=== PATIENT | female | born 1965 | race African-American/Black ===

== ENCOUNTER 2017-06-13 05:47 | Emergency (ER) | payer SELFPAY ==
[2017-06-13] MEDS ORDERED: METOCLOPRAMIDE 10 MG/2mL INJ ONE (06:26)
[2017-06-13] MEDS ORDERED: KETOROLAC 30 MG/ML INJ ONE (06:26)
[2017-06-13] MEDS ORDERED: DIPHENHYDRAMINE 50 MG/ML VIAL ONE (06:26)
--- NOTE | 2017-06-13 07:49 | EDPHYS ---
Physician Documentation [facility] Name: Jesenia Rodriguez Age: 51 yrs Sex: Female : 1965 Arrival Date: 06/13/2017 Time: 05:48 Bed 17 Private MD: ED Physician Jan Boss HPI: 06/13 07:00 This 51 yrs old Black Female presents to ER via Ambulatory with complaints of Headache pm1 - Migraine, Nausea/Vomiting. 07:00 The patient complains of pain to the top of head. The patient describes the headache as pm1 aching, constant. Onset: The symptoms/episode began/occurred 3 day(s) ago. Associated signs and symptoms: Pertinent positives: nausea, Photophobia vomiting, Pertinent negatives: fever, neck stiffness. Severity of symptoms: in the emergency department the pain is actually worse. Headache History: The patient has had previous headaches and this one is similar to previous episodes. The symptoms are alleviated by nothing. the symptoms are aggravated by lights, noise. The patient has experienced similar episodes in the past, multiple times. The patient has not recently seen a physician. 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 - Social history:: Smoking status: Patient/guardian denies using tobacco. ROS: 07:00 Constitutional: Negative for fever, chills, and weight loss, ENT: Negative for injury, pm1 pain, and discharge. 07:00 Neck: Negative for injury, pain, and swelling, Cardiovascular: Negative for chest pain, palpitations, and edema, Respiratory: Negative for shortness of breath, cough, wheezing, and pleuritic chest pain, Back: Negative for injury and pain, : Negative for injury, bleeding, discharge, and swelling, MS/Extremity: Negative for injury and deformity, Skin: Negative for injury, rash, and discoloration. 07:00 Eyes: Positive for photophobia, Negative for vision loss, visual disturbance. 07:00 Abdomen/GI: Positive for nausea and vomiting, Negative for abdominal pain, diarrhea. 07:00 Neuro: Positive for headache, Negative for dizziness. Exam: 07:00 Constitutional: This is a well developed, well nourished patient who is awake, alert, pm1 and in no acute distress. Head/Face: Normocephalic, atraumatic. Eyes: Pupils equal round and reactive to light, extra-ocular motions intact. Lids and lashes normal. Conjunctiva and sclera are non-icteric and not injected. Cornea within normal limits. Periorbital areas with no swelling, redness, or edema. ENT: Nares patent. No nasal discharge, no septal abnormalities noted. Tympanic membranes are normal and external auditory canals are clear. Oropharynx with no redness, swelling, or masses, exudates, or evidence of obstruction, uvula midline. Mucous membranes moist. Neck: Trachea midline, no thyromegaly or masses palpated, and no cervical lymphadenopathy. Supple, full range of motion without nuchal rigidity, or vertebral point tenderness. No Meningismus. Chest/axilla: Normal chest wall appearance and motion. Nontender with no deformity. No lesions are appreciated. Cardiovascular: Regular rate and rhythm with a normal S1 and S2. No gallops, murmurs, or rubs. Normal PMI, no JVD. No pulse deficits. Respiratory: Lungs have equal breath sounds bilaterally, clear to auscultation and percussion. No rales, rhonchi or wheezes noted. No increased work of breathing, no retractions or nasal flaring. Abdomen/GI: Soft, non-tender, with normal bowel sounds. No distension or tympany. No guarding or rebound. No evidence of tenderness throughout. Back: No spinal tenderness. No costovertebral tenderness. Full range of motion. Skin: Warm, dry with normal turgor. Normal color with no rashes, no lesions, and no evidence of cellulitis. MS/ Extremity: Pulses equal, no cyanosis. Neurovascular intact. Full, normal range of motion. 07:00 Neuro: Orientation: is normal, Cranial nerves: CN II- XII are normal as tested, Cerebellar function: normal finger to nose testing, Motor: is normal, moves all fours. Vital Signs: 06:03 BP 143 / 88; Pulse 72; Resp 22; Temp 97.9; Pulse Ox 97% on R/A; Weight 76.2 kg; Height aa1 5 ft. 7 in. (170.18 cm); Pain 10/10; 07:32 BP 126 / 90; Pulse 63; Resp 16 S; Pulse Ox 99% on R/A; aa5 06:03 Body Mass Index 26.31 (76.20 kg, 170.18 cm) aa1 MDM: 06:10 Patient medically screened. pm1 07:48 Data reviewed: vital signs. Data interpreted: Pulse oximetry: on room air is 97 %. pm1 Interpretation: normal. Counseling: I had a detailed discussion with the patient and/or guardian regarding: the historical points, exam findings, and any diagnostic results supporting the discharge/admit diagnosis, the need for outpatient follow up, to return to the emergency department if symptoms worsen or persist or if there are any questions or concerns that arise at home. 06/13 06:19 Order name: IV Saline Lock; Complete Time: 06:31 pm1 Administered Medications: 06:31 Drug: Reglan 10 mg Route: IVP; Site: right antecubital; tl2 07:30 Follow up: Response: No adverse reaction aa5 06:31 Drug: TORadol 30 mg Route: IVP; Site: right antecubital; tl2 07:30 Follow up: Response: No adverse reaction aa5 06:31 Drug: Benadryl 12.5 mg Route: IVP; Site: right antecubital; tl2 07:30 Follow up: Response: No adverse reaction aa5 Disposition: 19:25 Co-signature as Attending Physician, Jan Boss MD. Disposition: 06/13/17 07:48 Discharged to Home. Impression: Migraine. - Condition is Stable. - Discharge Instructions: Migraine Headache. - Medication Reconciliation Form, Thank You Letter, Prescription Opioid Use form. - Follow up: Emergency Department; When: As needed; Reason: Worsening of condition. Follow up: Private Physician; When: 2 - 3 days; Reason: Recheck today's complaints, Continuance of care, Re-evaluation by your physician. - Problem is new. - Symptoms have improved. Signatures: Kayla Schuler RN RN aa1 Marie Saleh RN RN aa5 Favio Schuster NP CORK INSULATOR HELPER pm1 Leni Escoto RN RN tl2 Jan Boss MD MD gs Corrections: (The following items were deleted from the chart) 08:18 07:48 06/13/2017 07:48 Discharged to Home. Impression: Migraine. Condition is Stable. aa5 Forms are Medication Reconciliation Form, Thank You Letter, Antibiotic Education, Prescription Opioid Use. Follow up: Emergency Department; When: As needed; Reason: Worsening of condition. Follow up: Private Physician; When: 2 - 3 days; Reason: Recheck today's complaints, Continuance of care, Re-evaluation by your physician. Problem is new. Symptoms have improved. pm1
--- NOTE | 2017-06-13 07:49 | ER ---
Nurse's Notes [facility] Name: Jesenia Rodriguez Age: 51 yrs Sex: Female : 1965 Arrival Date: 06/13/2017 Time: 05:48 Bed 17 Private MD: Diagnosis: Migraine Presentation: 06/13 05:58 Presenting complaint: Patient states: migraine x 3 days. Reports hx of migraines and aa1 takes Motrin 800 mg and Butab but is not helping. Transition of care: patient was not received from another setting of care. Onset of symptoms was June 10, 2017. Initial Sepsis Screen: Does the patient meet any 2 criteria? No. Patient's initial sepsis screen is negative. Does the patient have a suspected source of infection? No. Patient's initial sepsis screen is negative. Care prior to arrival: None. 05:58 Method Of Arrival: Ambulatory aa1 05:58 Acuity: BRIAN 3 aa1 Triage Assessment: 06:35 Headache History: The patient has had previous headaches and this one is similar to jd3 previous episodes. 06:35 Pain: Also complains of nausea. 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 - Social history:: Smoking status: Patient/guardian denies using tobacco. Screenin:03 Abuse screen: Denies threats or abuse. Nutritional screening: No deficits noted. jd3 Tuberculosis screening: No symptoms or risk factors identified. Fall Risk None identified. Assessment: 06:01 General: Appears uncomfortable, Behavior is cooperative, crying. Pain: Complains of jd3 pain in head Pain currently is 10 out of 10 on a pain scale. Quality of pain is described as sharp, Pain began 2-3 days ago. Is continuous, Aggravated by light Noted to be crying. Neuro: Level of Consciousness is awake, alert, obeys commands, Oriented to person, place, time, situation. Cardiovascular: Heart tones S1 S2 present Capillary refill < 3 seconds Patient's skin is warm and dry. Respiratory: Airway is patent Respiratory effort is even, unlabored, Respiratory pattern is regular, symmetrical, Breath sounds are clear bilaterally. GI: Abdomen is round Bowel sounds present X 4 quads. Abd is soft and non tender X 4 quads. Reports nausea. : No signs and/or symptoms were reported regarding the genitourinary system. EENT: No signs and/or symptoms were reported regarding the EENT system. Derm: Skin is intact, Skin is dry, Skin is normal, Skin temperature is warm. Musculoskeletal: Circulation, motion, and sensation intact. Range of motion: intact in all extremities. 07:30 Reassessment: Patient states feeling better. Pt resting in bed with eyes closed, aa5 respirations even and unlabored. . 08:17 Reassessment: Patient states feeling better. Neuro: Level of Consciousness is awake, aa5 alert, obeys commands, Oriented to person, place, time, situation. Respiratory: Airway is patent Respiratory effort is even, unlabored, Respiratory pattern is regular, symmetrical. Derm: Skin is dry, Skin is normal, Skin temperature is warm. Vital Signs: 06:03 BP 143 / 88; Pulse 72; Resp 22; Temp 97.9; Pulse Ox 97% on R/A; Weight 76.2 kg; Height aa1 5 ft. 7 in. (170.18 cm); Pain 10/10; 07:32 BP 126 / 90; Pulse 63; Resp 16 S; Pulse Ox 99% on R/A; aa5 06:03 Body Mass Index 26.31 (76.20 kg, 170.18 cm) aa1 ED Course: 05:48 Patient arrived in ED. am2 06:01 Nadir Engel RN is Primary Nurse. jd3 06:01 Favio Schuster NP is PHCP. pm1 06:01 Jan Boss MD is Attending Physician. pm1 06:02 Triage completed. aa1 06:03 Patient has correct armband on for positive identification. Bed in low position. Call jd3 light in reach. Side rails up X2. Adult w/ patient. 06:03 Arm band placed on right wrist. Patient placed in an exam room, on a stretcher. aa1 06:32 Inserted saline lock: 20 gauge in right antecubital area, using aseptic technique. tl2 placed by LUIGI Schmitz. 06:34 Door closed. Noise minimized. Lights dimmed. Warm blanket given. jd3 07:53 No provider procedures requiring assistance completed. aa5 08:17 IV discontinued, intact, bleeding controlled, No redness/swelling at site. Pressure aa5 dressing applied. Administered Medications: 06:31 Drug: Reglan 10 mg Route: IVP; Site: right antecubital; tl2 07:30 Follow up: Response: No adverse reaction aa5 06:31 Drug: TORadol 30 mg Route: IVP; Site: right antecubital; tl2 07:30 Follow up: Response: No adverse reaction aa5 06:31 Drug: Benadryl 12.5 mg Route: IVP; Site: right antecubital; tl2 07:30 Follow up: Response: No adverse reaction aa5 Outcome: 07:48 Discharge ordered by MD. pm1 08:17 Discharged to home ambulatory, with family. aa5 08:17 Condition: improved 08:17 Discharge instructions given to patient, family, Instructed on discharge instructions, follow up and referral plans. Demonstrated understanding of instructions, follow-up care. 08:18 Patient left the ED. aa5 Signatures: Kayla Schuler RN RN aa1 Marie Saleh RN RN aa5 Favio Schuster, RAINE CARDIOVASCULAR SURGICAL TECH pm1 Leni Escoto RN RN tl2 Catherine Sena amNadir Mccarthy RN RN jd3
== END 2017-06-13 08:18 | disposition home or self-care (01) ==
LOC: ER 05:47
DX: G43.909 Migraine, unspecified, not intractable, without status migrainosus (principal)
CPT/HCPCS: 96374; 96375; 99283; J2765

== ENCOUNTER 2018-01-10 20:35 | Emergency (ER) | payer SELFPAY ==
[2018-01-10] MEDS ORDERED: DEXAMETHASONE 10 MG/ML VIAL ONE (21:56)
[2018-01-10] MEDS ORDERED: DIPHENHYDRAMINE 50 MG/ML VIAL ONE (21:57)
[2018-01-10] MEDS ORDERED: METOCLOPRAMIDE 10 MG/2mL INJ ONE (21:57)
[2018-01-10] MEDS ORDERED: KETOROLAC 30 MG/ML INJ ONE (21:57)
[2018-01-10] MEDS ORDERED: NA CHLORIDE 0.9% 1,000 ML ONE (21:57)
--- NOTE | 2018-01-10 23:00 | ER ---
Nurse's Notes [facility] Name: Jesenia Rodriguez Age: 52 yrs Sex: Female : 1965 Arrival Date: 01/10/2018 Time: 20:43 Bed 17 Private MD: Diagnosis: Migraine Presentation: 01/10 21:01 Presenting complaint: Patient states: migraine started this morning. pt c/o N/V. pt ak1 missed her MRI on 12/22 in [place] and is waiting on insurance from her new job to reschedule next MRI. Transition of care: patient was not received from another setting of care. Onset of symptoms was January 10, 2018. Risk Assessment: Do you want to hurt yourself or someone else? Patient reports no desire to harm self or others. Initial Sepsis Screen: Does the patient meet any 2 criteria? No. Patient's initial sepsis screen is negative. Does the patient have a suspected source of infection? No. Patient's initial sepsis screen is negative. Care prior to arrival: None. 21:01 Method Of Arrival: Ambulatory ak1 21:01 Acuity: BRIAN 3 ak1 Triage Assessment: 21:03 Headache History: The patient has had previous headaches. General: Appears ak1 uncomfortable, Behavior is calm, cooperative. Neuro: Level of Consciousness is awake, alert, obeys commands, Oriented to person, place, time, situation, Doweler are equal bilaterally Moves all extremities. Gait is steady, Speech is normal, Facial symmetry appears normal. 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 - Social history:: Smoking status: Patient/guardian denies using tobacco. - Ebola Screening: : No symptoms or risks identified at this time. - Family history:: not pertinent. - Hospitalizations: : No recent hospitalization is reported. Screenin:45 Abuse screen: Denies threats or abuse. Denies injuries from another. Nutritional lp1 screening: No deficits noted. Tuberculosis screening: No symptoms or risk factors identified. Fall Risk None identified. Assessment: 21:43 General: Appears uncomfortable, Behavior is crying. Pain: Complains of pain in head lp1 Pain currently is 10 out of 10 on a pain scale. Pain began gradually, Also complains of photophobia, inability to concentrate. Neuro: Level of Consciousness is awake, alert, obeys commands, Oriented to person, place, time, situation, Moves all extremities. Full function Gait is steady, Reports headache occipital area, photophobia. Cardiovascular: Patient's skin is warm and dry. Respiratory: Respiratory effort is even, unlabored. GI: No signs and/or symptoms were reported involving the gastrointestinal system. : No signs and/or symptoms were reported regarding the genitourinary system. EENT: No signs and/or symptoms were reported regarding the EENT system. Derm: Skin is intact, Skin is dry, Skin is normal. Musculoskeletal: Circulation, motion, and sensation intact. 23:07 Reassessment: Patient and/or family updated on plan of care and expected duration. Pain lp1 level reassessed. Patient is alert, oriented x 3, equal unlabored respirations, skin warm/dry/pink. Patient able to tolerate light Patient states feeling better. Patient states symptoms have improved. General: Behavior is calm. Vital Signs: 21:03 BP 129 / 98; Pulse 79; Resp 18; Temp 98.7; Pulse Ox 99% on R/A; Weight 67.13 kg (R); ak1 Height 5 ft. 7 in. (170.18 cm) (R); Pain 9/10; 22:02 BP 136 / 83; Pulse 82; Resp 18; Pulse Ox 100% on R/A; lp1 23:07 BP 138 / 87; Pulse 86; Resp 18; Pulse Ox 100% on R/A; Pain 2/10; lp1 21:03 Body Mass Index 23.18 (67.13 kg, 170.18 cm) ak1 Gm Coma Score: 22:56 Eye Response: spontaneous(4). Verbal Response: oriented(5). Motor Response: obeys rn commands(6). Total: 15. ED Course: 20:43 Patient arrived in ED. es 21:02 Triage completed. ak1 21:03 Arm band placed on Patient placed in waiting room, Patient notified of wait time. ak1 21:32 Coretta Britton, RN is Primary Nurse. lp1 21:38 Malick Lei MD is Attending Physician. rn 21:40 Inserted saline lock: 20 gauge in right antecubital area, using aseptic technique. lp1 22:02 Patient has correct armband on for positive identification. Pulse ox on. NIBP on. lp1 23:09 No provider procedures requiring assistance completed. lp1 23:16 IV discontinued, No redness/swelling at site. Pressure dressing applied. lp1 Administered Medications: 22:01 Drug: Reglan 10 mg Route: IVP; Site: right antecubital; lp1 23:08 Follow up: Response: Marked relief of symptoms lp1 22:01 Drug: Benadryl 50 mg Route: IVP; Site: right antecubital; lp1 23:08 Follow up: Response: Marked relief of symptoms lp1 22:01 Drug: NS 0.9% 1000 ml Route: IV; Rate: 1000 ml; Site: right antecubital; lp1 23:08 Follow up: IV Status: Completed infusion; IV Intake: 1000ml lp1 22:01 Drug: Decadron - Dexamethasone 10 mg Route: IVP; Site: right antecubital; lp1 23:08 Follow up: Response: Marked relief of symptoms lp1 22:02 Drug: TORadol 30 mg Route: IVP; Site: right antecubital; lp1 23:08 Follow up: Response: Marked relief of symptoms lp1 Intake: 23:08 IV: 1000ml; Total: 1000ml. lp1 Outcome: 23:00 Discharge ordered by . rn 23:16 Discharged to home ambulatory, with family. lp1 23:16 Condition: good 23:16 Discharge instructions given to patient, Instructed on discharge instructions, follow up and referral plans. Demonstrated understanding of instructions, follow-up care. 23:17 Patient left the ED. lp1 Signatures: Milagros Jang Roman, MD MD rn Pena, Laura, RN RN lp1 Cami Lau RN RN ak1 Corrections: (The following items were deleted from the chart) 22:04 21:43 Pain: Complains of pain in head Pain currently is 10 out of 10 on a pain scale. lp1 lp1 22:04 21:43 Neuro: Level of Consciousness is awake, alert, obeys commands, Oriented to lp1 person, place, time, situation, Moves all extremities. Full function Gait is steady, Reports headache occipital area, photophobia lp1 22: 21:43 Pain: Complains of pain in head Pain currently is 10 out of 10 on a pain scale. lp1 Also complains of photophobia, inability to concentrate, lp1
--- NOTE | 2018-01-10 23:01 | EDPHYS ---
Physician Documentation [facility] Name: Jesenia Rodriguez Age: 52 yrs Sex: Female : 1965 Arrival Date: 01/10/2018 Time: 20:43 Bed 17 Private MD: ED Physician Malick eLi HPI: 01/10 22:56 This 52 yrs old Black Female presents to ER via Ambulatory with complaints of Headache, rn Nausea. 22:56 The patient complains of pain to the top of head and forehead. The patient describes rn the headache as aching. Onset: The symptoms/episode began/occurred yesterday. Severity of symptoms: At its worst the pain was moderate, "similar to past headaches". The patient has experienced similar episodes in the past. The patient has not recently seen a physician. Reports headache, has history of migraines, has been worked up for them with imaging and sees a neurologist, reports imitrex not working. No new symptoms. . 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 - Social history:: Smoking status: Patient/guardian denies using tobacco. - Ebola Screening: : No symptoms or risks identified at this time. - Family history:: not pertinent. - Hospitalizations: : No recent hospitalization is reported. ROS: 22:56 Constitutional: Negative for fever, chills, and weight loss, Eyes: Negative for injury, rn pain, redness, and discharge, Neck: Negative for injury, pain, and swelling, Cardiovascular: Negative for chest pain, palpitations, and edema, Respiratory: Negative for shortness of breath, cough, wheezing, and pleuritic chest pain, Abdomen/GI: Negative for abdominal pain, diarrhea, and constipation, MS/Extremity: Negative for injury and deformity, Skin: Negative for injury, rash, and discoloration, Neuro: Negative for weakness, numbness, tingling, and seizure. Exam: 22:56 Constitutional: This is a well developed, well nourished patient who is awake, alert, rn and in no acute distress. Head/Face: Normocephalic, atraumatic. Eyes: Pupils equal round and reactive to light, extra-ocular motions intact. ENT: MMM Neck: Trachea midline. Supple, full range of motion without nuchal rigidity, or vertebral point tenderness. No Meningismus. Skin: Warm, dry with normal turgor. Normal color with no rashes, no lesions, and no evidence of cellulitis. MS/ Extremity: Pulses equal, no cyanosis. Neurovascular intact. Full, normal range of motion. Equal circumference. Neuro: Awake and alert, GCS 15, oriented to person, place, time, and situation. Cranial nerves II-XII grossly intact. Motor strength 5/5 in all extremities. Sensory grossly intact. Cerebellar exam normal. Normal gait. Vital Signs: 21:03 BP 129 / 98; Pulse 79; Resp 18; Temp 98.7; Pulse Ox 99% on R/A; Weight 67.13 kg (R); ak1 Height 5 ft. 7 in. (170.18 cm) (R); Pain 9/10; 22:02 BP 136 / 83; Pulse 82; Resp 18; Pulse Ox 100% on R/A; lp1 23:07 BP 138 / 87; Pulse 86; Resp 18; Pulse Ox 100% on R/A; Pain 2/10; lp1 21:03 Body Mass Index 23.18 (67.13 kg, 170.18 cm) ak1 [place] Coma Score: 22:56 Eye Response: spontaneous(4). Verbal Response: oriented(5). Motor Response: obeys rn commands(6). Total: 15. MDM: 21:38 Patient medically screened. rn 22:56 Differential diagnosis: migraine. Data reviewed: vital signs, nurses notes, and as a rn result, I will discharge patient. Counseling: I had a detailed discussion with the patient and/or guardian regarding: the historical points, exam findings, and any diagnostic results supporting the discharge/admit diagnosis, the need for outpatient follow up, to return to the emergency department if symptoms worsen or persist or if there are any questions or concerns that arise at home. Response to treatment: the patient's symptoms have markedly improved after treatment. Special discussion: I discussed with the patient/guardian in detail that at this point there is no indication for admission to the hospital. It is understood, however, that if the symptoms persist or worsen the patient needs to return immediately for re-evaluation. 01/10 21:43 Order name: IV Start; Complete Time: 21:45 rn Administered Medications: 22:01 Drug: Reglan 10 mg Route: IVP; Site: right antecubital; lp1 23:08 Follow up: Response: Marked relief of symptoms lp1 22:01 Drug: Benadryl 50 mg Route: IVP; Site: right antecubital; lp1 23:08 Follow up: Response: Marked relief of symptoms lp1 22:01 Drug: NS 0.9% 1000 ml Route: IV; Rate: 1000 ml; Site: right antecubital; lp1 23:08 Follow up: IV Status: Completed infusion; IV Intake: 1000ml lp1 22:01 Drug: Decadron - Dexamethasone 10 mg Route: IVP; Site: right antecubital; lp1 23:08 Follow up: Response: Marked relief of symptoms lp1 22:02 Drug: TORadol 30 mg Route: IVP; Site: right antecubital; lp1 23:08 Follow up: Response: Marked relief of symptoms lp1 Disposition: 01/10/18 23:00 Discharged to Home. Impression: Migraine. - Condition is Stable. - Discharge Instructions: Migraine Headache. - Medication Reconciliation Form, Thank You Letter, Antibiotic Education, Prescription Opioid Use form. - Follow up: Private Physician; When: As needed; Reason: Recheck today's complaints, Re-evaluation by your physician. - Problem is new. - Symptoms have improved. Signatures: Malick Lei MD MD rn Pena, Laura RN RN lp1 Cami Lau RN RN ak1 Corrections: (The following items were deleted from the chart) 23:17 23:00 01/10/2018 23:00 Discharged to Home. Impression: Migraine. Condition is Stable. lp1 Forms are Medication Reconciliation Form, Thank You Letter, Antibiotic Education, Prescription Opioid Use. Follow up: Private Physician; When: As needed; Reason: Recheck today's complaints, Re-evaluation by your physician. Problem is new. Symptoms have improved. rn
== END 2018-01-10 23:17 | disposition home or self-care (01) ==
LOC: ER 20:35
DX: G43.909 Migraine, unspecified, not intractable, without status migrainosus (principal)
CPT/HCPCS: 96361; 96374; 96375; 99283; J1100; J2765; J7030

== ENCOUNTER 2018-03-05 20:22 | Emergency (ER) | payer SELFPAY ==
--- NOTE | 2018-03-05 20:29 | ER ---
Nurse's Notes [facility] Name: Jesenia Rodriguez Age: 52 yrs Sex: Female : 1965 Arrival Date: 03/05/2018 Time: 20:23 Bed Waiting Private MD: Diagnosis: Presentation: 03/05 20:27 Note Patient stated that she did not need to be seen as she was needing work release aj filled out for her job in order to return to work. 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 ED Course: 20: Patient arrived in ED. am2 20:28 Freddy Owusu MD is Attending Physician. alex Administered Medications: No medications were administered Outcome: 20:28 Eloped from waiting room, before seeing physician alex 20:28 Patient left the ED. alex Signatures: Catherine Moise, RN RN Catherine Richardson am2
== END 2018-03-05 20:28 | disposition left against medical advice (07) ==
LOC: ER 20:22
DX: Z53.21 Procedure and treatment not carried out due to patient leaving prior to being seen by health care provider (principal)

== ENCOUNTER 2019-02-22 18:20 | Emergency (ER) | payer SELFPAY ==
--- OUTSIDE RECORDS SUMMARY | 2019-02-22 18:21 | XMS REPORT ---
:1965 Author Organization [facility] Address [address] [place] [address] Care Team Providers Name Role Phone Unavailable Unavailable Unavailable Problems This patient has no known problems. Allergies, Adverse Reactions, Alerts This patient has no known allergies or adverse reactions. Medications This patient has no known medications.
--- NOTE | 2019-02-22 19:19 | ER ---
Nurse's Notes [facility] Name: Jesenia Rodriguez Age: 53 yrs Sex: Female : 1965 Arrival Date: 02/22/2019 Time: 18:23 Bed 11 Private MD: Diagnosis: Acute pharyngitis Presentation: 02/22 18:35 Presenting complaint: Patient states: i have sore throat, cough and congestion since mg2 since Friday. denies fever. Transition of care: patient was not received from another setting of care. Onset of symptoms was February 2019. Risk Assessment: Do you want to hurt yourself or someone else? Patient reports no desire to harm self or others. Initial Sepsis Screen: Does the patient meet any 2 criteria? No. Patient's initial sepsis screen is negative. Does the patient have a suspected source of infection? No. Patient's initial sepsis screen is negative. Care prior to arrival: None. 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 - Social history:: Smoking status: Patient/guardian denies using tobacco, Patient/guardian denies using alcohol, street drugs, IV drugs, Patient/guardian denies using The patient lives with family, with spouse. - Ebola Screening: : No symptoms or risks identified at this time. - Family history:: not pertinent. Screenin:53 Abuse screen: Denies threats or abuse. Denies injuries from another. Nutritional iw screening: No deficits noted. Tuberculosis screening: No symptoms or risk factors identified. Fall Risk None identified. Assessment: 18:53 General: Appears in no apparent distress. Behavior is calm, cooperative. General: iw Reports feeling ill for 2-3 days, Denies fever. Pain: Complains of pain in throat. Neuro: Level of Consciousness is awake, alert, obeys commands, Oriented to person, place, time, situation, Moves all extremities. Full function. Cardiovascular: Patient's skin is warm and dry. Respiratory: Airway is patent Respiratory effort is even, unlabored, Breath sounds are clear bilaterally. EENT: Throat is reddened has enlarged tonsils bilaterally with gag reflex present. Derm: Skin is intact, is healthy with good turgor. Musculoskeletal: Range of motion: intact in all extremities. 19:33 Reassessment: Patient is alert, oriented x 3, equal unlabored respirations, skin bb warm/dry/pink. pt verbalized understanding of and agrees to plan of care discharge instructions given pt ambulated with steady gait to exit. Vital Signs: 18:36 Pulse 78; Resp 17; Temp 98.2; Pulse Ox 100% on R/A; Weight 72.57 kg; Height 5 ft. 7 in. mg2 (170.18 cm); 18:38 BP 130 / 90; mg2 18:36 Body Mass Index 25.06 (72.57 kg, 170.18 cm) mg2 ED Course: 18:23 Patient arrived in ED. mr 18:36 Triage completed. mg2 18:38 Arm band placed on. mg2 18:40 Flu and/or RSV swab sent to lab. Strep swab sent to lab. mg2 18:50 Jane Lanza, RN is Primary Nurse. iw 18:54 No provider procedures requiring assistance completed. Patient did not have IV access iw during this emergency room visit. 19:13 Guillermo Richter MD is Attending Physician. ma 19:34 Patient has correct armband on for positive identification. bb Administered Medications: No medications were administered Outcome: 19:18 Discharge ordered by . ma2 19:34 Discharged to home ambulatory. bb 19:34 Condition: stable 19:34 Discharge instructions given to patient, Instructed on discharge instructions, follow up and referral plans. medication usage, Demonstrated understanding of instructions, follow-up care, medications, Prescriptions given X 2. 19:34 Patient left the ED. bb Signatures: Komal Keller StarrAraceli, RN RN bb Jane Lanza, LUIGI MEYERS iw Guillermo Richter MD MD ma2 Facundo Ribeiro RN RN mg2
--- NOTE | 2019-02-22 19:19 | EDPHYS ---
Physician Documentation [facility] Name: Jesenia Rodriguez Age: 53 yrs Sex: Female : 1965 Arrival Date: 02/22/2019 Time: 18:23 Bed 11 Private MD: ED Physician Guillermo Richter HPI: 02/22 19:15 This 53 yrs old Black Female presents to ER via Ambulatory with complaints of Sore ma2 Throat, Fever. 19:15 The patient describes throat pain as constant. Onset: The symptoms/episode ma2 began/occurred gradually, 1 day(s) ago. Severity of symptoms: At their worst the symptoms were moderate, in the emergency department the symptoms are unchanged. Associated signs and symptoms: Pertinent negatives cough, earache, rhinorrhea. The patient has not experienced similar symptoms in the past. 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 - Social history:: Smoking status: Patient/guardian denies using tobacco, Patient/guardian denies using alcohol, street drugs, IV drugs, Patient/guardian denies using The patient lives with family, with spouse. - Ebola Screening: : No symptoms or risks identified at this time. - Family history:: not pertinent. ROS: 19:15 Constitutional: Negative for fever, chills, and weight loss. ma2 19:15 All other systems are negative. Exam: 19:15 Constitutional: This is a well developed, well nourished patient who is awake, alert, ma2 and in no acute distress. 19:15 Head/Face: Normocephalic, atraumatic. Eyes: Pupils equal round and reactive to light, extra-ocular motions intact. Lids and lashes normal. Conjunctiva and sclera are non-icteric and not injected. Cornea within normal limits. Periorbital areas with no swelling, redness, or edema. Neck: Trachea midline, no thyromegaly or masses palpated, and no cervical lymphadenopathy. Supple, full range of motion without nuchal rigidity, or vertebral point tenderness. No Meningismus. Chest/axilla: Normal chest wall appearance and motion. Nontender with no deformity. No lesions are appreciated. Cardiovascular: Regular rate and rhythm with a normal S1 and S2. No gallops, murmurs, or rubs. Normal PMI, no JVD. No pulse deficits. Respiratory: Lungs have equal breath sounds bilaterally, clear to auscultation and percussion. No rales, rhonchi or wheezes noted. No increased work of breathing, no retractions or nasal flaring. Abdomen/GI: Soft, non-tender, with normal bowel sounds. No distension or tympany. No guarding or rebound. No evidence of tenderness throughout. MS/ Extremity: Pulses equal, no cyanosis. Neurovascular intact. Full, normal range of motion. Neuro: Awake and alert, GCS 15, oriented to person, place, time, and situation. Cranial nerves II-XII grossly intact. Motor strength 5/5 in all extremities. Sensory grossly intact. Cerebellar exam normal. Normal gait. 19:15 ENT: Posterior pharynx: Tonsils: bilaterally enlarged. Vital Signs: 18:36 Pulse 78; Resp 17; Temp 98.2; Pulse Ox 100% on R/A; Weight 72.57 kg; Height 5 ft. 7 in. mg2 (170.18 cm); 18:38 BP 130 / 90; mg2 18:36 Body Mass Index 25.06 (72.57 kg, 170.18 cm) mg2 MDM: 19:13 Patient medically screened. ma2 19:15 Differential diagnosis: gastroesophageal reflux disease, pharyngitis, tonsillitis. Data ma2 reviewed: vital signs, nurses notes. Counseling: I had a detailed discussion with the patient and/or guardian regarding: the historical points, exam findings, and any diagnostic results supporting the discharge/admit diagnosis, the presence of at least one elevated blood pressure reading (>120/80) during this emergency department visit, the need for outpatient follow up. Response to treatment: the patient's symptoms have markedly improved after treatment. 02/22 18:38 Order name: Flu [facility] 02/22 18:38 Order name: Strep [facility] 02/22 18:39 Order name: Influenza Screen (A EDWA 02/22 18:39 Order name: Group A Streptococcus Rapid Sc EDMS Administered Medications: No medications were administered Disposition: 02/22/19 19:18 Discharged to Home. Impression: Acute pharyngitis. - Condition is Stable. - Discharge Instructions: Pharyngitis. - Prescriptions for Augmentin 875- 125 mg Oral Tablet - take 1 tablet by ORAL route every 12 hours for 10 days; 20 tablet. Medrol (Alex) 4 mg Oral Tablets, Dose Pack - take 1 tablet by ORAL route as directed - follow package instructions; 1 packet. - Medication Reconciliation Form, Thank You Letter, Antibiotic Education, Prescription Opioid Use form. - Follow up: Private Physician; When: Tomorrow; Reason: Continuance of care. Signatures: Dispatcher [employer] EDAraceli Betancourt RN RN bb Guillermo Richter MD MD ma2 Facundo Ribeiro RN RN mg2 Corrections: (The following items were deleted from the chart) 19:34 19:18 02/22/2019 19:18 Discharged to Home. Impression: Acute pharyngitis. Condition is bb Stable. Forms are Medication Reconciliation Form, Thank You Letter, Antibiotic Education, Prescription Opioid Use. Follow up: Private Physician; When: Tomorrow; Reason: Continuance of care. ma2
[2019-02-22 19:59] VITALS: TEMP 98.2; O2SAT 100
[2019-02-22 20:00] VITALS: BP 130/90
== END 2019-02-22 19:34 | disposition home or self-care (01) ==
LOC: ER 18:20
DX: J02.9 Acute pharyngitis, unspecified (principal); Z88.6 Allergy status to analgesic agent
CPT/HCPCS: 87070; 87081; 87804; 99283

== ENCOUNTER 2019-12-23 23:46 | Inpatient (IN) | payer SELFPAY ==
--- OUTSIDE RECORDS SUMMARY | 2019-12-23 23:48 | XMS REPORT | Continuity of Care Document ---
:1965 Author Organization [facility] Address 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 Allergies, Adverse Reactions, Alerts This patient has no known allergies or adverse reactions. Medications This patient has no known medications. Procedures This patient has no known procedures. Encounters Start End Encounter Admission Attending Care Care Encounter Source Date/Time Date/Time Type Type Clinicians Facility Department ID 2019-02-25 2019-02-25 Emergency Stewart [facility] [id number] 15:32:56 17:51:00 Ray Burns [id number] [place] [id number] [place] [id number] Results This patient has no known results.
[2019-12-24 00:16] LABS: Absolute Lymphocytes (CBC) 3.1 K/uL (0.7-4.9); Basophils % 0.9 % (0-1.3); Hematocrit 36.9 % (36.0-45.0); Lymphocytes % 41.2 % (15.3-44.8); MPV 8.2 fL (7.6-11.3)
[2019-12-24] MEDS ORDERED: NA CHLORIDE 0.9% 1,000 ML ONE (00:25)
[2019-12-24 00:29] LABS: Protime INR 0.95
[2019-12-24 00:33] LABS: ALT/SGPT 15 U/L (12-78); AST/SGOT 15 U/L (15-37); Albumin 3.2 g/dL (3.4-5.0); Alkaline Phosphatase 93 U/L (45-117); BUN Blood Urea Nitrogen 16 mg/dL (7-18); Bicarbonate 28 mmol/L (21-32); Bilirubin Direct < 0.1 mg/dL (0-0.2); Bilirubin Total 0.3 mg/dL (0.2-1.0); Glucose Level 105 mg/dL (74-106); Lipase 127 U/L (73-393); Magnesium 2.3 mg/dL (1.8-2.4); NT PRO-BNP 45 pg/mL (<125); Potassium 4.1 mmol/L (3.5-5.1); Protein, Total 7.5 g/dL (6.4-8.2); Sodium Level 141 mmol/L (136-145); Troponin (Emerg Dept Use Only) < 0.02 ng/mL (0.0-0.045)
[2019-12-24] MEDS ORDERED: METOPROLOL TAR 50 MG TAB ONE (00:49)
[2019-12-24] MEDS ORDERED: MORPHINE 4 MG/ML SYR ONE (00:50)
[2019-12-24] MEDS ORDERED: FAMOTIDINE 20 MG/2 ML VIAL IV ONE (00:50)
[2019-12-24] MEDS ORDERED: ONDANSETRON 4 MG/2 ML VIAL ONE (00:50)
[2019-12-24] MEDS ORDERED: METOPROLOL TARTRATE 5 MG/5 ML INJ IV ONE (00:50)
--- NOTE | 2019-12-24 01:15 | ER ---
Nurse's Notes [facility] Name: Jesenia Rodriguez Age: 54 yrs Sex: Female : 1965 Arrival Date: 12/23/2019 Time: 23:50 Bed 26 Private MD: Diagnosis: Chest pain, unspecified;Essential (primary) hypertension Presentation: 12/22 23:50 Chief complaint: EMS states: Pt is reporting severe mid sternal chest that radiates to jb4 her middle back. She reports that the pain woke her up in the middle of the night. Was given 324 mg of aspirin. Coronavirus screen: Client denies travel out of the [place] in the last 14 days. At this time, the client does not indicate any symptoms associated with coronavirus-19. Ebola Screen: No symptoms or risks identified at this time. Initial Sepsis Screen: Does the patient meet any 2 criteria? No. Patient's initial sepsis screen is negative. Does the patient have a suspected source of infection? No. Patient's initial sepsis screen is negative. Risk Assessment: Do you want to hurt yourself or someone else? Patient reports no desire to harm self or others. Onset of symptoms was December 23, 2019. Transition of care: patient was not received from another setting of care. 23:50 Method Of Arrival: EMS: [facility] jb4 23:50 Acuity: BRIAN 2 jb4 Triage Assessment: 23:53 General: Appears in no apparent distress. uncomfortable, Behavior is cooperative, jb4 appropriate for age, anxious, crying. Pain: Complains of pain in mid-sternal area Pain radiates to thoracic area Pain currently is 10 out of 10 on a pain scale. Quality of pain is described as pressure, Pain began 1 hour ago. EENT: No signs and/or symptoms were reported regarding the EENT system. Neuro: Level of Consciousness is awake, alert, obeys commands, Oriented to person, place, time, situation. Cardiovascular: Patient's skin is warm and dry. Respiratory: Airway is patent Respiratory effort is even, unlabored, Respiratory pattern is regular, symmetrical. GI: No signs and/or symptoms were reported involving the gastrointestinal system. : No signs and/or symptoms were reported regarding the genitourinary system. Derm: Skin is intact, Skin is dry, Skin is normal, Skin temperature is warm. Musculoskeletal: Circulation, motion, and sensation intact. Range of motion: intact in all extremities. 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 - Social history:: Smoking status: Patient denies any tobacco usage or history of. Patient/guardian denies using alcohol, street drugs. - Family history:: not pertinent. Screenin/13 00:00 Abuse screen: Denies threats or abuse. Nutritional screening: No deficits noted. jb4 Tuberculosis screening: No symptoms or risk factors identified. Fall Risk None identified. Assessment: 00:57 Reassessment: Patient appears in no apparent distress at this time. Patient and/or jb4 family updated on plan of care and expected duration. Pain level reassessed. Patient is alert, oriented x 3, equal unlabored respirations, skin warm/dry/pink. 01:30 Reassessment: Patient appears in no apparent distress at this time. Patient and/or jb4 family updated on plan of care and expected duration. Pain level reassessed. Patient is alert, oriented x 3, equal unlabored respirations, skin warm/dry/pink. Patient states feeling better. 02:17 Reassessment: Patient appears in no apparent distress at this time. Patient and/or jb4 family updated on plan of care and expected duration. Pain level reassessed. Patient is alert, oriented x 3, equal unlabored respirations, skin warm/dry/pink. Patient states feeling better. Vital Signs: 12/22 23:50 BP 146 / 91; Pulse 76; Resp 16; Temp 97.8(O); Pulse Ox 98% on R/A; Weight 72.57 kg (R); jb4 Height 5 ft. 7 in. (170.18 cm) (R); Pain 11/19; 12/23 00:40 BP 140 / 91; Pulse 70; Resp 16; Pulse Ox 99% on R/A; jb4 01:45 BP 130 / 89; Pulse 57; Resp 16; Pulse Ox 95% on R/A; jb4 02:15 BP 131 / 95; Pulse 53; Resp 16; Pulse Ox 96% on R/A; jb4 12/22 23:50 Body Mass Index 25.06 (72.57 kg, 170.18 cm) [facility] ED Course: 12/22 23:50 Patient arrived in ED. jb4 23:52 Triage completed. jb4 23:53 Arm band placed on right wrist. EKG completed in triage. Results shown to MD. jb4 23:56 Freddy Owusu MD is Attending Physician. [facility] 12/23 00:00 Ramirez Alvarenga RN is Primary Nurse. jb4 00:00 Patient has correct armband on for positive identification. Bed in low position. Call [facility] light in reach. Side rails up X 1. Pulse ox on. NIBP on. 00:00 Initial lab(s) drawn, by va, sent to lab. Inserted saline lock: 18 gauge in right [facility] antecubital area, using aseptic technique. Blood collected. 00:20 XRAY Chest (1 view) In Process Unspecified. EDMS 01:12 CT Aorta for Dissection In Process Unspecified. EDFL 01:14 Gigi Lei MD is Hospitalizing Provider. [facility] 03:12 No provider procedures requiring assistance completed. Patient admitted, IV remains in place. Administered Medications: 00:17 Drug: NS 0.9% 1000 ml Route: IV; Rate: 125 ml/hr; Site: right antecubital; [facility] 03:13 Follow up: Response: No adverse reaction; IV Status: Completed infusion; Infusion wh continued upon admission 00:40 Drug: Lopressor (metoprolol TARTRATE) 50 mg Route: PO; jb4 01:15 Follow up: Response: No adverse reaction; Blood pressure is lowered [facility] 00:40 Drug: Pepcid 20 mg Route: IVP; Site: right antecubital; jb4 01:15 Follow up: Response: No adverse reaction 4 00:42 Drug: Lopressor 5 mg Route: IVP; Site: right antecubital; jb4 01:15 Follow up: Response: No adverse reaction [facility] 01:15 Drug: morphine 4 mg Route: IVP; Site: right antecubital; jb4 01:45 Follow up: Response: No adverse reaction; Pain is decreased; RASS: Alert and Calm (0) jb4 01:15 Drug: Zofran (Ondansetron) 4 mg Route: IVP; Site: right antecubital; jb4 01:45 Follow up: Response: No adverse reaction jb4 01:47 Not Given (Hemodynamic Parameters): Lopressor 5 mg IVP once; Hold for SBP <100 or HR jb4 <60. 02:06 Drug: Lovenox 1 mg/kg Route: Sub-Q; Site: right lower abdomen; jb4 02:18 Follow up: Response: No adverse reaction jb4 Outcome: 01:14 Decision to Hospitalize by Provider. [facility] 03:12 Admitted to ER Hold. Please see [facility] for further documentation. 03:12 Condition: stable 03:12 Instructed on the need for admit. 08:18 Patient left the ED. eb Signatures: Dispatcher [employer] EDMS Freddy Owusu MD MD cha Bryson, James, RN RN jb4 Emily Oneal Marya Weinstein Corrections: (The following items were deleted from the chart) 00:00 12/22 23:50 Acuity: BRIAN 3 jb4 jb4 12/23 02:17 02:17 Reassessment: Patient appears in no apparent distress at this time. Patient jb4 and/or family updated on plan of care and expected duration. Pain level reassessed. Patient is alert, oriented x 3, equal unlabored respirations, skin warm/dry/pink. jb4 02:18 02:00 BP 131 / 95; Pulse 53bpm; Resp 16bpm; Pulse Ox 96% RA; jb4 jb4
--- NOTE | 2019-12-24 01:15 | EDPHYS ---
Physician Documentation [facility] Name: Jesenia Rodriguez Age: 54 yrs Sex: Female : 1965 Arrival Date: 12/23/2019 Time: 23:50 Bed 26 Private MD: ED Physician Freddy Owusu HPI: 12/23 01:09 This 54 yrs old Black Female presents to ER via EMS with complaints of chest pain to [facility] back, tightness. 01:09 The patient or guardian reports chest pain that is located primarily in the substernal [facility] area. Onset: just prior to arrival. The pain radiates to back. Associated signs and symptoms: The patient has no apparent associated signs or symptoms. The chest pain is described as a pressure, squeezing. Duration: The patient or guardian reports a single episode, that is still ongoing. Modifying factors: The symptoms are alleviated by nothing. the symptoms are aggravated by nothing. Severity of pain: At its worst the pain was moderate in the emergency department the pain is unchanged. The patient has not experienced similar symptoms in the past. 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 - Social history:: Smoking status: Patient denies any tobacco usage or history of. Patient/guardian denies using alcohol, street drugs. - Family history:: not pertinent. ROS: 12/23 01:11 Constitutional: Negative for fever, chills, and weight loss, Eyes: Negative for injury, bill pain, redness, and discharge, ENT: Negative for injury, pain, and discharge, Neck: Negative for injury, pain, and swelling, Respiratory: Negative for shortness of breath, cough, wheezing, and pleuritic chest pain, Abdomen/GI: Negative for abdominal pain, nausea, vomiting, diarrhea, and constipation, Back: Negative for injury and pain, : Negative for injury, bleeding, discharge, and swelling, MS/Extremity: Negative for injury and deformity, Skin: Negative for injury, rash, and discoloration, Neuro: Negative for headache, weakness, numbness, tingling, and seizure, Psych: Negative for depression, anxiety, suicide ideation, homicidal ideation, and hallucinations, Allergy/Immunology: Negative for hives, rash, and allergies, Endocrine: Negative for neck swelling, polydipsia, polyuria, polyphagia, and marked weight changes, Hematologic/Lymphatic: Negative for swollen nodes, abnormal bleeding, and unusual bruising. Cardiovascular: Positive for chest pain, of the chest. Exam: :11 Constitutional: This is a well developed, well nourished patient who is awake, alert, bill and in no acute distress. Head/Face: Normocephalic, atraumatic. Eyes: Pupils equal round and reactive to light, extra-ocular motions intact. Lids and lashes normal. Conjunctiva and sclera are non-icteric and not injected. Cornea within normal limits. Periorbital areas with no swelling, redness, or edema. ENT: Nares patent. No nasal discharge, no septal abnormalities noted. Tympanic membranes are normal and external auditory canals are clear. Oropharynx with no redness, swelling, or masses, exudates, or evidence of obstruction, uvula midline. Mucous membranes moist. Neck: Trachea midline, no thyromegaly or masses palpated, and no cervical lymphadenopathy. Supple, full range of motion without nuchal rigidity, or vertebral point tenderness. No Meningismus. Chest/axilla: Normal chest wall appearance and motion. Nontender with no deformity. No lesions are appreciated. Cardiovascular: Regular rate and rhythm with a normal S1 and S2. No gallops, murmurs, or rubs. Normal PMI, no JVD. No pulse deficits. Respiratory: Lungs have equal breath sounds bilaterally, clear to auscultation and percussion. No rales, rhonchi or wheezes noted. No increased work of breathing, no retractions or nasal flaring. Abdomen/GI: Soft, non-tender, with normal bowel sounds. No distension or tympany. No guarding or rebound. No evidence of tenderness throughout. Back: No spinal tenderness. No costovertebral tenderness. Full range of motion. Skin: Warm, dry with normal turgor. Normal color with no rashes, no lesions, and no evidence of cellulitis. MS/ Extremity: Pulses equal, no cyanosis. Neurovascular intact. Full, normal range of motion. Neuro: Awake and alert, GCS 15, oriented to person, place, time, and situation. Cranial nerves II-XII grossly intact. Motor strength 5/5 in all extremities. Sensory grossly intact. Cerebellar exam normal. Normal gait. Psych: Awake, alert, with orientation to person, place and time. Behavior, mood, and affect are within normal limits. 01:11 Musculoskeletal/extremity: DVT Exam: No signs of deep vein thrombosis. no pain, no swelling, no tenderness, negative Homans' sign noted on exam, no appreciated bluish discoloration, no erythema, no increased warmth. Vital Signs: 12/22 23:50 BP 146 / 91; Pulse 76; Resp 16; Temp 97.8(O); Pulse Ox 98% on R/A; Weight 72.57 kg (R); jb4 Height 5 ft. 7 in. (170.18 cm) (R); Pain 11/19; 12/23 00:40 BP 140 / 91; Pulse 70; Resp 16; Pulse Ox 99% on R/A; jb4 01:45 BP 130 / 89; Pulse 57; Resp 16; Pulse Ox 95% on R/A; jb4 02:15 BP 131 / 95; Pulse 53; Resp 16; Pulse Ox 96% on R/A; jb4 12/22 23:50 Body Mass Index 25.06 (72.57 kg, 170.18 cm) jb4 MDM: 12/22 23:56 Patient medically screened. bill 12/23 01:12 Differential diagnosis: abnormal EKG, acute myocardial infarction, chest wall pain, bill cholecystitis, Cholelithiasis costochondritis, myocarditis, pancreatitis, pleurisy, pulmonary embolus, stable angina, thoracic aortic disection, unstable angina. HEART Score: History: Moderately Suspicious (1), ECG: Normal (0), Age: > 45 and < 65 years (1), Risk Factors: 1 or 2 risk factors (1), [+ Family HX] Troponin: < or = 1 x Normal Limit (0). The patient was given aspirin in the Emergency Department. The patient's deep vein thrombosis risk score was calculated as follows: Total Score: 0. This patient was found to be at low risk for a deep vein thrombosis by using the Well's assessment criteria. The patient's pulmonary embolism risk score was calculated as follows: Total Score: 0-2 points. This patient was found to be at low risk for a pulmonary embolism by using the Well's assessment criteria. TAYLOR Risk Score: TOTAL SCORE = 0. Data reviewed: vital signs, nurses notes, lab test result(s), EKG, radiologic studies, CT scan, plain films. Data interpreted: compliance monitor: rate is 70 beats/min, rhythm is regular, Pulse oximetry: on room air is 99 %. Test interpretation: by ED physician or midlevel provider: ECG, plain radiologic studies. Counseling: I had a detailed discussion with the patient and/or guardian regarding: the historical points, exam findings, and any diagnostic results supporting the discharge/admit diagnosis, the presence of at least one elevated blood pressure reading (>120/80) during this emergency department visit, lab results, radiology results, the need for further work-up and treatment in the hospital. 12/23 00:02 Order name: Basic Metabolic Panel; Complete Time: 00:50 [facility] 12/23 00:02 Order name: CBC with Diff; Complete Time: 00:50 [facility] 12/23 00:02 Order name: LFT's; Complete Time: 00:50 [facility] 12/23 00:02 Order name: Magnesium; Complete Time: 00:50 [facility] 12/23 00:02 Order name: NT PRO-BNP; Complete Time: 00:50 [facility] 12/23 00:02 Order name: PT-INR; Complete Time: 00:50 [facility] 12/23 00:02 Order name: Troponin (emerg Dept Use Only); Complete Time: 00:50 [facility] 12/23 00:02 Order name: Lipase; Complete Time: 00:50 [facility] 12/23 01:45 Order name: COVID-19 la1 12/23 01:53 Order name: CREATININE WHOLE BLOOD [facility] 12/23 05:16 Order name: CBC with Automated Diff [facility] 12/23 05:52 Order name: Basic Metabolic Panel [facility] 12/23 05:52 Order name: Troponin I [facility] 12/23 05:52 Order name: Lipid Profile [facility] 12/23 00:02 Order name: XRAY Chest (1 view) [facility] 12/23 00:02 Order name: EKG; Complete Time: 00:02 [facility] 12/23 00:02 Order name: Cardiac monitoring; Complete Time: 00:08 [facility] 12/23 00:02 Order name: EKG - Nurse/Tech; Complete Time: 00:07 [facility] 12/23 00:02 Order name: IV Saline Lock; Complete Time: 00:07 [facility] 12/23 00:02 Order name: CT Aorta for Dissection [facility] 12/23 05:52 Order name: T4 Free [facility] 12/23 05:52 Order name: Thyroid Stimulating Hormone [facility] 12/23 00:02 Order name: Labs collected and sent; Complete Time: 00:07 [facility] 12/23 00:02 Order name: O2 Per Protocol; Complete Time: 00:07 [facility] 12/23 00:02 Order name: O2 Sat Monitoring; Complete Time: 00:07 [facility] Administered Medications: 00:17 Drug: NS 0.9% 1000 ml Route: IV; Rate: 125 ml/hr; Site: right antecubital; jb4 03:13 Follow up: Response: No adverse reaction; IV Status: Completed infusion; Infusion wh continued upon admission 00:40 Drug: Lopressor (metoprolol TARTRATE) 50 mg Route: PO; jb4 01:15 Follow up: Response: No adverse reaction; Blood pressure is lowered jb4 00:40 Drug: Pepcid 20 mg Route: IVP; Site: right antecubital; jb4 01:15 Follow up: Response: No adverse reaction jb4 00:42 Drug: Lopressor 5 mg Route: IVP; Site: right antecubital; jb4 01:15 Follow up: Response: No adverse reaction jb4 01:15 Drug: morphine 4 mg Route: IVP; Site: right antecubital; jb4 01:45 Follow up: Response: No adverse reaction; Pain is decreased; RASS: Alert and Calm (0) jb4 01:15 Drug: Zofran (Ondansetron) 4 mg Route: IVP; Site: right antecubital; jb4 01:45 Follow up: Response: No adverse reaction jb4 01:47 Not Given (Hemodynamic Parameters): Lopressor 5 mg IVP once; Hold for SBP <100 or HR jb4 <60. 02:06 Drug: Lovenox 1 mg/kg Route: Sub-Q; Site: right lower abdomen; jb4 02:18 Follow up: Response: No adverse reaction jb4 Disposition: 12/24/19 01:14 Hospitalization ordered by Gigi Lei for Observation. Preliminary diagnosis are Chest pain, unspecified, Essential (primary) hypertension. - Bed requested for Telemetry/MedSurg (observation). - Status is Observation. eb - Condition is Fair. - Problem is new. - Symptoms have improved. Signatures: Dispatcher [employer] EDMS Freddy Owusu MD MD cha Garcia, Cindy RN RN Ramirez Alvarenga RN RN jb4 Marya Weinstein Winsy Corrections: (The following items were deleted from the chart) 03:08 01:14 Hospitalization Ordered by Gigi Lei MD for Observation. Preliminary cg diagnosis is Chest pain, unspecified; Essential (primary) hypertension. Bed requested for Telemetry/MedSurg (observation). Status is Observation. Condition is Fair. Problem is new. Symptoms have improved. [facility] 07:32 03:08 12/24/2019 01:14 Hospitalization Ordered by Gigi Lei MD for Observation. eb Preliminary diagnosis is Chest pain, unspecified; Essential (primary) hypertension. Bed requested for [facility] ER HOLD. Status is Observation. Condition is Fair. Problem is new. Symptoms have improved. 08:18 07:32 12/24/2019 01:14 Hospitalization Ordered by Gigi Lei MD for Observation. eb Preliminary diagnosis is Chest pain, unspecified; Essential (primary) hypertension. Bed requested for Telemetry/MedSurg (observation). Status is Observation. Condition is Fair. Problem is new. Symptoms have improved. eb
[2019-12-24] MEDS ORDERED: ENOXAPARIN 30 MG/0.3 ML SQ ONE (02:06)
[2019-12-24] MEDS ORDERED: ENOXAPARIN 40 MG/0.4 ML SQ ONE (02:07)
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
[2019-12-24] MEDS ORDERED: ONDANSETRON 4 MG/2 ML VIAL IV PRN (03:16)
[2019-12-24] MEDS ORDERED: ACETAMINOPHEN 500 MG TAB PO PRN (03:16)
[2019-12-24] MEDS ORDERED: MORPHINE 2 MG/ML SYR IV ONE ×3 (05:07→16:00)
[2019-12-24 05:10] LABS: Absolute Lymphocytes (CBC) 1.8 K/uL (0.7-4.9); Basophils % 0.5 % (0-1.3); Hematocrit 35.6 % (36.0-45.0); Lymphocytes % 23.2 % (15.3-44.8); MPV 8.4 fL (7.6-11.3); RBC Red Blood Cell Count 4.12 M/uL (3.86-4.86)
[2019-12-24] MEDS ORDERED: MORPHINE 2 MG/ML SYR ONE (05:21)
[2019-12-24 05:51] LABS: BUN Blood Urea Nitrogen 14 mg/dL (7-18); Bicarbonate 29 mmol/L (21-32); Glucose Level 104 mg/dL (74-106); HDL Cholesterol 52 mg/dL (40-60); LDL Cholesterol, Calculated 131 (<130); Potassium 4.2 mmol/L (3.5-5.1); Sodium Level 142 mmol/L (136-145); Thyroid Stimulating Hormone 0.344 uIU/mL (0.360-3.740); Troponin I < 0.02 ng/mL (0.0-0.045)
--- NOTE | 2019-12-24 08:35 | RAD REPORT ---
EXAM DESCRIPTION: RAD - Chest Single View - 12/24/2019 12:19 am CLINICAL HISTORY: CHEST PAIN COMPARISON: None TECHNIQUE: AP portable chest image was obtained 12/24/2019 12:19 am . FINDINGS: Lungs are clear. Heart and vasculature are normal. No measurable pleural effusion and no p neumothorax. No acute bony abnormality seen. No acute aortic findings suspected. IMPRESSION: No acute cardiopulmonary process.
[2019-12-24] MEDS ORDERED: INFLUENZA VACCINE (for 3y+) 0.5 ML DOSE IMVAC ONE (09:00)
[2019-12-24] MEDS ORDERED: ASPIRIN EC 81 MG TAB PO SCH (09:00)
[2019-12-24] MEDS ORDERED: ENOXAPARIN 40 MG/0.4 ML SQ SCH ×2 (09:00→21:00)
[2019-12-24 09:03] VITALS: BMI 24.3
--- NOTE | 2019-12-24 11:54 | RAD REPORT ---
EXAM DESCRIPTION: CT - Angio Aorta For Dissection - 12/24/2019 6:21 am CLINICAL HISTORY: The patient is 54 years old and is Female; CHEST PAIN TECHNIQUE: Axial computed tomographic angiography images of the chest, abdomen and pelvis with intra venous contrast. This CT exam was performed using one or more of the following dose reduction techn iques: automated exposure control, adjustment of the mA and/or kV according to patient size, and/or use of iterative reconstruction technique. MIP reconstructed images were created and reviewed. DLP: 750 mGy*cm COMPARISON: None. FINDINGS: VASCULATURE: AORTA: No acute findings. No aortic aneurysm. No dissection. PULMONARY ARTERIES: Unremarkable as visualized. No pulmonary embolism is identified. GREAT VESSELS OF AORTIC ARCH: No acute findings. No dissection. No arterial occlusion or signi ficant stenosis. CELIAC TRUNK AND MESENTERIC ARTERIES: No acute findings. No occlusion or significant stenosis. RENAL ARTERIES: No acute findings. No occlusion or significant stenosis. ILIAC ARTERIES: No acute findings. No occlusion or significant stenosis. CHEST: LUNGS: Unremarkable. No mass. No consolidation. PLEURAL SPACE: Unremarkable. No significant effusion. No pneumothorax. HEART: Unremarkable. No cardiomegaly. No significant pericardial effusion. MEDIASTINUM: Nodular hypodensity noted in the anterior mediastinum measuring 5.6 x 1.9 x 2.3 cm ab utting the superior aspect of the ascending aorta and aortic arch. THYROID: Visualized thyroid is normal. ABDOMEN: LIVER: Unremarkable. No mass. GALLBLADDER AND BILE DUCTS: Prior cholecystectomy. No ductal dilation. PANCREAS: Unremarkable. No ductal dilation. No mass. SPLEEN: Unremarkable. No splenomegaly. ADRENALS: Unremarkable. No mass. KIDNEYS AND URETERS: Unremarkable. No hydronephrosis. No solid mass. STOMACH AND BOWEL: Unremarkable. No obstruction. No mucosal thickening. PELVIS: APPENDIX: The appendix is seen and is within normal limits. BLADDER: Unremarkable. No mass. REPRODUCTIVE: Prior hysterectomy. CHEST, ABDOMEN and PELVIS: INTRAPERITONEAL SPACE: Unremarkable. No significant fluid collection. No free air. BONES/JOINTS: No acute fracture. No dislocation. SOFT TISSUES: Fat-containing umbilical hernia. LYMPH NODES: Unremarkable. No enlarged lymph nodes. IMPRESSION: 1. No acute aortic abnormality or pulmonary embolism. 2. Nodular hypodensity noted in the anterior mediastinum measuring 5.6 x 1.9 x 2.3 cm abutting the superior aspect of the ascending aorta and aortic arch. Finding could represent loculated fluid in the superior pericardial recess. However, mediastinal neoplasm such as thymoma cannot be entirely exc luded. 3. No acute abdominal or pelvic abnormality. Electronically signed by: Shai Arias DO 12/24/2019 1:34 AM ADMINISTRATIVE RESIDENT Due to temporary technical issues with the PACS/Fluency reporting system, reports are being signed by the in house radiologist without review as a courtesy to ensure prompt reporting. The interpreting r adiologist is fully responsible for the content of the report.
--- NOTE | 2019-12-24 13:05 | ECHO ---
HEIGHT: 5 ft 7 in WEIGHT: 155 lb 0 oz DATE OF STUDY: 12/24/[address]: Homero Leigh NP 2-DIMENSIONAL: YES M.MODE: YES DOPPLER: YES COLOR FLOW: YES TDS: NO PORTABLE: NO DEFINITY: NO BUBBLE STUDY: NO DIAGNOSIS: ABNORMAL CT CARDIAC HISTORY: CATHERIZATION: NO SURGERY: NO PROSTHETIC VALVE: NO PACEMAKER: NO MEASUREMENTS (cm) DIASTOLIC (NORMALS) SYSTOLIC (NORMALS) IVSd 1.0 (0.6-1.2) LA Diam 2.8 (1.9-4.0) LVEF 69% LVIDd 4.2 (3.5-5.7) LVIDs 2.6 (2.0-3.5) %FS 38% LVPWd 1.0 (0.6-1.2) Ao Diam 2.5 (2.0-3.7) 2 DIMENSIONAL ASSESSMENT: RIGHT ATRIUM: NORMAL LEFT ATRIUM: NORMAL RIGHT VENTRICLE: NORMAL LEFT VENTRICLE: NORMAL TRICUSPID VALVE: NORMAL MITRAL VALVE: NORMAL PULMONIC VALVE: NORMAL AORTIC VALVE: NORMAL PERICARDIAL EFFUSION: NONE AORTIC ROOT: NORMAL LEFT VENTRICULAR WALL MOTION: NORMAL. DOPPLER/COLOR FLOW: NORMAL. COMMENTS: NORMAL 2D ECHO WITH DOPPLER. NO WALL MOTION ABNORMALITY. NO EFFUSION. TECHNOLOGIST: BENJY CADE
[2019-12-24] MEDS ORDERED: KETOROLAC 30 MG/ML INJ IV ONE (16:00)
[2019-12-24 17:13] VITALS: O2SAT 96
[2019-12-24 18:02] VITALS: BP 132/74; TEMP 96.8
--- NOTE | 2019-12-26 07:48 | EKG ---
Test Date: 2019-12-23 Test Time: 23:49:05 Math Professor: SCOTT MEASUREMENT RESULTS: Intervals: Rate: 69 [place]: 196 QRSD: 78 QT: 402 QTc: 430 [place]: P: 84 WA: 196 QRS: 63 T: 69 INTERPRETIVE STATEMENTS: Normal sinus rhythm Septal infarct, age undetermined Abnormal ECG Compared to ECG 11/29/2002 17:44:00 Myocardial infarct finding now present Sinus bradycardia no longer present Electronically Signed On 12-26-19 07:41:44 PARTS DELIVERY DRIVER by Jacinto Zamora
== END 2019-12-24 18:36 | disposition home or self-care (01) | DRG 313 ==
LOC: ER 23:46 → ERHOLD 12-24 02:28 → 2ND 12-24 07:46 → OBSVTOIN 12-24 08:09
PROVIDERS: ADMIT Hospitalist; ATTEND Hospitalist
DX: R07.9 Chest pain, unspecified (principal); Z90.710 Acquired absence of both cervix and uterus; Z98.51 Tubal ligation status; Z79.891 Long term (current) use of opiate analgesic; Z79.899 Other long term (current) drug therapy; Z88.6 Allergy status to analgesic agent; Z88.5 Allergy status to narcotic agent; Z88.8 Allergy status to other drugs, medicaments and biological substances; Z20.828 Contact with and (suspected) exposure to other viral communicable diseases
CPT/HCPCS: 36415; 71045; 71275; 74175; 80048; 80061; 80076; 82565; 83690; 83735; 83880; 84439; 84443; 84484; 85025; 85610; 93005; 93306; 96361; 96372; 96374; 96375; 99285; J1650; J2270; J2405; J7030; Q9967; U0002

== ENCOUNTER 2020-04-03 17:53 | Emergency (ER) | payer SELFPAY ==
--- OUTSIDE RECORDS SUMMARY | 2020-04-03 17:56 | XMS REPORT | Continuity of Care Document ---
:1965 Author Organization [facility] t Address 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 Allergies, Adverse Reactions, Alerts This patient has no known allergies or adverse reactions. Medications This patient has no known medications. Procedures This patient has no known procedures. Encounters Start End Encounter Admission Attending Care Care Encounter Source Date/Time Date/Time Type Type Clinicians Facility Department ID 2019-02-25 2019-02-25 Emergency Pat [facility] [id number] 15:32:56 17:51:00 Ray Burns [id number] [place] [id number] [place] [id number] Results This patient has no known results.
[2020-04-03] MEDS ORDERED: NA CHLORIDE 0.9% 1,000 ML ONE (18:21)
[2020-04-03 18:28] LABS: Absolute Lymphocytes (CBC) 3.2 K/uL (0.7-4.9); Basophils % 0.5 % (0-1.3); Hematocrit 36.1 % (36.0-45.0); Lymphocytes % 39.2 % (15.3-44.8); MPV 8.4 fL (7.6-11.3)
[2020-04-03 18:29] LABS: Protime INR 0.99
--- NOTE | 2020-04-03 18:42 | RAD REPORT ---
EXAM DESCRIPTION: CT - Head Brain Wo Cont - 04/03/2020 6:30 pm CLINICAL HISTORY: Dizziness COMPARISON: 2017 TECHNIQUE: Computed axial tomography of the head was obtained. IV contrast was not requested. All CT scans are performed using dose optimization technique as appropriate and may include automated exposure control or mA/KV adjustment according to patient size. FINDINGS: An intracranial bleed is not seen . The ventricles are normal in caliber. No extra-axial fluid collection is noted. Fluid within the sinuses/ mastoids is not seen. IMPRESSION: No acute intracranial abnormality is seen. If patient's symptoms persist MRI of the bra in would be recommended.
--- NOTE | 2020-04-03 18:50 | RAD REPORT ---
EXAM DESCRIPTION: Anil Single View04/03/2020 6:44 pm CLINICAL HISTORY: Chest pain COMPARISON: 2019 FINDINGS: The lungs appear clear of acute infiltrate. The heart is normal size IMPRESSION: No acute abnormalities displayed
[2020-04-03 18:56] LABS: ALT/SGPT 17 U/L (12-78); AST/SGOT 11 U/L (15-37); Albumin 3.2 g/dL (3.4-5.0); Alkaline Phosphatase 95 U/L (45-117); BUN Blood Urea Nitrogen 10 mg/dL (7-18); Bicarbonate 32 mmol/L (21-32); Bilirubin Direct < 0.1 mg/dL (0-0.2); Bilirubin Total 0.3 mg/dL (0.2-1.0); Glucose Level 105 mg/dL (74-106); Magnesium 2.4 mg/dL (1.8-2.4); NT PRO-BNP 61 pg/mL (<125); Potassium 3.4 mmol/L (3.5-5.1); Protein, Total 7.3 g/dL (6.4-8.2); Sodium Level 145 mmol/L (136-145); Troponin (Emerg Dept Use Only) < 0.02 ng/mL (0.0-0.045)
[2020-04-03 18:59] LABS: Urine Bacteria <20 /HPF (<20); Urine RBC <5 /HPF (NONE SEEN)
[2020-04-03 19:06] LABS: Urine Blood TRACE (NEG); Urine Glucose NEGATIVE (NEG); Urine Protein NEGATIVE (NEG)
[2020-04-03] MEDS ORDERED: NA CHLORIDE 0.9% 250 ML ONE (19:22)
[2020-04-03] MEDS ORDERED: METHYLPREDNISOLONE 125 MG INJ ONE (19:22)
[2020-04-03] MEDS ORDERED: MECLIZINE HCL 12.5 MG TAB ONE (20:15)
[2020-04-03] MEDS ORDERED: POTASSIUM 25 MEQ EFFERV TAB ONE (20:15)
--- NOTE | 2020-04-03 22:55 | ER ---
Nurse's Notes [facility] Name: Jesenia Rodriguez Age: 54 yrs Sex: Female : 1965 Arrival Date: 04/03/2020 Time: 17:56 Bed 6 Private MD: Diagnosis: Dizziness and giddiness;Other chest pain-from bee sting;Nausea;Hypertensive heart disease Presentation: 04/03 17:57 Chief complaint: EMS states: pt was at the [facility] in [place], became dizzy and tw2 nauseous, the staff lowered her to the floor which she remembers them doing, so no LOC, she is c/o pain to the front of her chest where she was stung by a bee about 2-3 hours ago, vs stable, hx: htn, syncopal episodes, tia, migraines, pt takes no medication. Coronavirus screen: nausea, Client presents with at least one sign or symptom that may indicate coronavirus-19. Standard/surgical mask placed on the client. Provider contacted for isolation considerations. At this time, the client does not indicate any symptoms associated with coronavirus-19. Ebola Screen: Patient denies travel to an Ebola-affected area in the 21 days before illness onset. Initial Sepsis Screen: Does the patient meet any 2 criteria? No. Patient's initial sepsis screen is negative. Does the patient have a suspected source of infection? No. Patient's initial sepsis screen is negative. Risk Assessment: Do you want to hurt yourself or someone else? Patient reports no desire to harm self or others. Onset of symptoms was April 03, 2020. 17:57 Method Of Arrival: EMS: [place] [facility] tw2 17:57 Acuity: BRIAN 3 tw2 Triage Assessment: 17:57 General: Appears in no apparent distress. slender, Behavior is calm, cooperative, tw2 appropriate for age. Pain: Complains of pain in bee sting on chest. EENT: No signs and/or symptoms were reported regarding the EENT system. Neuro: Level of Consciousness is awake, alert, obeys commands, Oriented to person, place, time, situation. Cardiovascular: Patient's skin is warm and dry. Respiratory: Airway is patent Respiratory effort is even, unlabored, Respiratory pattern is regular, symmetrical. GI: Abdomen is flat, Reports nausea. : No signs and/or symptoms were reported regarding the genitourinary system. Derm: No signs and/or symptoms reported regarding the dermatologic system. Musculoskeletal: Range of motion: intact in all extremities. MANAGER DATABASE: 18:02 LMP N/A - Hysterectomy tw2 Historical: - Allergies: 18:01 Claritin; tw2 18:01 Codeine; tw2 18:01 Darvocet-N 100; tw2 18:01 Demerol; tw2 18:01 Tylenol; tw2 18:01 Vicodin; tw2 18:01 Cinnamon; tw2 - Home Meds: 18:01 None [Active]; tw2 - PMHx: 18:01 Migraines; Hypertension; syncopal episodes; TIA; tw2 - PSHx: 18:01 Hysterectomy; tw2 - Immunization history:: Adult Immunizations. - Social history:: Smoking status: . Screenin:02 Abuse screen: Denies threats or abuse. Nutritional screening: No deficits noted. tw2 Tuberculosis screening: No symptoms or risk factors identified. Fall Risk None identified. Assessment: 18:01 Reassessment: see triage assessment. tw2 18:30 Reassessment: pt became dizzy sitting upright in bed after stating she needed to use tw2 the restroom, w/c provided and pt was assisted to bathroom, then taken via w/c to CT, provider notified. 19:09 Reassessment: Patient appears in no apparent distress at this time. Patient and/or mg2 family updated on plan of care and expected duration. Pain level reassessed. Patient is alert, oriented x 3, equal unlabored respirations, skin warm/dry/pink. 20:00 Reassessment: Patient appears in no apparent distress at this time. Patient and/or em family updated on plan of care and expected duration. Pain level reassessed. Patient is alert, oriented x 3, equal unlabored respirations, skin warm/dry/pink. 20:46 Reassessment: Patient appears in no apparent distress at this time. wheeled to CT via em wheelchair. 22:49 Reassessment: Patient denies pain at this time. Patient states feeling better. Patient mg2 states symptoms have improved. Vital Signs: 17:57 BP 164 / 77; Pulse 73; Resp 18; Temp 98.5(O); Pulse Ox 100% on R/A; Weight 76.2 kg (R); tw2 Height 5 ft. 7 in. (170.18 cm); 21:29 BP 151 / 90; Pulse 73; Resp 18; Pulse Ox 100% on R/A; mg2 17:57 Body Mass Index 26.31 (76.20 kg, 170.18 cm) tw2 ED Course: 17:56 Patient arrived in ED. tw2 17:57 Freddy Dumont PA is PHCP. cp 17:57 Malick Lei MD is Attending Physician. cp 17:57 Bed in low position. Call light in reach. Side rails up X2. Pulse ox on. NIBP on. tw2 17:59 Triage completed. tw2 18:00 Arm band placed on. tw2 18:00 EKG done, by ED staff, reviewed by Freddy RAGSDALE. dh3 18:05 Missed attempt(s): 20 gauge in right antecubital area. Bleeding controlled, band aid tw2 applied, catheter tip intact. Inserted saline lock: 22 gauge in left antecubital area, using aseptic technique. Blood collected. 18:20 Caity Luo, RN is Primary Nurse. tw2 18:31 CT Head Brain wo Cont In Process Unspecified. EDMS 18:45 XRAY Chest (1 view) In Process Unspecified. EDMS 19:38 Feliciano Hammond MD is Attending Physician. cp 20:28 Primary Nurse role handed off by Caity Luo, RN ar5 20:46 Alec Lafleur, LUIGI is Primary Nurse. em 20:57 CT Head Angio In Process Unspecified. EDMS 20:57 CT Neck Angio In Process Unspecified. EDMS 21:36 No provider procedures requiring assistance completed. Repeat lab(s) drawn. by wv, sent mg2 to lab. 22:48 IV discontinued, intact, bleeding controlled, No redness/swelling at site. Pressure mg2 dressing applied. Administered Medications: 18:20 Drug: NS 0.9% 500 ml Route: IV; Rate: bolus; Site: left antecubital; tw2 20:50 Follow up: Response: No adverse reaction; IV Status: Completed infusion; IV Intake: mg2 500ml 19:22 Drug: SOLU-Medrol 125 mg Route: IVP; Site: left antecubital; mg2 20:02 Follow up: Response: No adverse reaction em 19:34 Drug: NS 0.9% 500 ml Route: IV; Rate: 250 ml/hr; Site: left antecubital; mg2 20:02 Drug: Meclizine 25 mg Route: PO; em 20:49 Follow up: Response: No adverse reaction mg2 20:02 Drug: Potassium Effervescent Tablet 50 mEq Route: PO; em 20:49 Follow up: Response: No adverse reaction mg2 Intake: 20:50 IV: 500ml; Total: 500ml. mg2 Outcome: 22:38 Discharge ordered by . pm1 22:49 Discharged to home ambulatory. mg2 22:49 Condition: good 22:49 Discharge instructions given to patient, Instructed on discharge instructions, follow up and referral plans. medication usage, Demonstrated understanding of instructions, follow-up care, medications, Prescriptions given X 3. 22:49 Patient left the ED. mg2 Signatures: Dispatcher [employer] Alec Ricks RN RN em Freddy Dumont PA PA cp Marinas, Patrick, RAINE INSOLE TAPE STITCHER [employer] pm1 Caity Luo RN RN 2 Jazmin Scott 3 Facundo Ribeiro RN RN mg2 Debbie Whipple ar5
--- NOTE | 2020-04-03 22:56 | EDPHYS ---
Physician Documentation [facility] Name: Jesenia Rodriguez Age: 54 yrs Sex: Female : 1965 Arrival Date: 04/03/2020 Time: 17:56 Bed 6 Private MD: ED Physician Feliciano Hammond HPI: 04/03 18:05 This 54 yrs old Black Female presents to ER via EMS with complaints of Nausea, cp Dizziness. 18:05 The patient presents with feeling faint, lightheadedness. Onset: The symptoms/episode cp began/occurred just prior to arrival. Associated signs and symptoms: Pertinent positives: chest pain, nausea, near-syncope, Pertinent negatives: confusion, diaphoresis, focal weakness, shortness of breath, syncope, vomiting. 18:05 Severity of symptoms: in the emergency department the symptoms have improved mildly. cp Patient's baseline: Neuro: alert and fully oriented, Motor: no deficits, Ambulation: walks without assistance, Speech: normal. 18:05 Patient reports she standing when she became dizzy, lightheaded and almost passed out. cp Patient was lowered to ground. Patient denies LOC. C/o nausea, dizziness. Patient reports bee sting to mid upper chest 2-3 hours ago. Denies shortness of breath, dysphagia. 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 - Social history:: Smoking status: . ROS: 18:05 Constitutional: Negative for body aches, chills, fever, poor PO intake. cp 18:05 Eyes: Negative for injury, pain, redness, and discharge. cp 18:05 ENT: Negative for ear pain, sore throat, difficulty swallowing, difficulty handling secretions. 18:05 Cardiovascular: Positive for chest pain, Negative for edema, palpitations. 18:05 Respiratory: Negative for cough, shortness of breath, wheezing. 18:05 Abdomen/GI: Positive for nausea, Negative for abdominal pain, vomiting, diarrhea, constipation, black/tarry stool, rectal bleeding. 18:05 Back: Negative for pain at rest, pain with movement. 18:05 : Negative for urinary symptoms. 18:05 Neuro: Positive for dizziness, near syncope, Negative for altered mental status, headache, loss of consciousness, syncope, weakness. 18:05 All other systems are negative. Exam: 18:05 ECG was reviewed by the Attending Physician. cp 18:10 Constitutional: The patient appears in no acute distress, alert, awake, cp non-diaphoretic, non-toxic, well developed, well nourished. 18:10 Head/Face: Normocephalic, atraumatic. cp 18:10 Eyes: Periorbital structures: appear normal, Pupils: equal, round, and reactive to light and accomodation, Extraocular movements: intact throughout, Conjunctiva: normal, no exudate, no injection, Sclera: no appreciated abnormality, Lids and lashes: appear normal, bilaterally. 18:10 ENT: External ear(s): are unremarkable, Nose: is normal, Mouth: Lips: moist, Oral mucosa: moist, Posterior pharynx: Airway: no evidence of obstruction, patent. 18:10 Neck: ROM/movement: is normal, is supple, without pain, no range of motions limitations, no nuchal rigidity. 18:10 Chest/axilla: Inspection: normal, Palpation: crepitus, is not appreciated, tenderness, that is mild, of the anterior aspect of right upper chest and anterior aspect of left upper chest. 18:10 Cardiovascular: Rate: normal, Rhythm: regular, Edema: is not appreciated, JVD: is not appreciated. 18:10 Respiratory: the patient does not display signs of respiratory distress, Respirations: normal, no use of accessory muscles, no retractions, labored breathing, is not present, Breath sounds: are clear throughout, no decreased breath sounds, no stridor, no wheezing. 18:10 Abdomen/GI: Inspection: abdomen appears normal, Palpation: abdomen is soft and non-tender, in all quadrants. 18:10 Neuro: Orientation: to person, place \T\ time. Mentation: is normal, Cerebellar function: is grossly normal, Motor: moves all fours, strength is normal, Sensation: is normal. Vital Signs: 17:57 BP 164 / 77; Pulse 73; Resp 18; Temp 98.5(O); Pulse Ox 100% on R/A; Weight 76.2 kg (R); tw2 Height 5 ft. 7 in. (170.18 cm); 21:29 BP 151 / 90; Pulse 73; Resp 18; Pulse Ox 100% on R/A; mg2 17:57 Body Mass Index 26.31 (76.20 kg, 170.18 cm) tw2 MDM: 18:00 Patient medically screened. cp 18:30 Differential diagnosis: cardiac arrhythmia, CVA, GI bleed, hypovolemia, idiopathic cp dizziness, near-syncope, syncope, TIA, vertigo. 21:50 Response to treatment: the patient's symptoms have markedly improved after treatment. cp 22:37 Data reviewed: vital signs. Data interpreted: Pulse oximetry: on room air is 100 %. pm1 Interpretation: normal. Counseling: I had a detailed discussion with the patient and/or guardian regarding: the historical points, exam findings, and any diagnostic results supporting the discharge/admit diagnosis, lab results, radiology results, the need for outpatient follow up, to return to the emergency department if symptoms worsen or persist or if there are any questions or concerns that arise at home. 04/03 18:00 Order name: Basic Metabolic Panel 04/03 18:00 Order name: CBC with Diff; Complete Time: 18:53 cp 04/03 18:00 Order name: LFT's; Complete Time: 19:38 cp 04/03 18:00 Order name: Magnesium; Complete Time: 19:38 cp 04/03 18:00 Order name: NT PRO-BNP; Complete Time: 19:38 cp 04/03 18:00 Order name: PT-INR; Complete Time: 18:53 cp 04/03 18:00 Order name: Troponin (emerg Dept Use Only); Complete Time: 19:38 cp 04/03 18:00 Order name: XRAY Chest (1 view); Complete Time: 18:53 cp 04/03 18:00 Order name: Urine Microscopic Only; Complete Time: 19:38 cp 04/03 18:00 Order name: CT Head Brain wo Cont; Complete Time: 18:53 cp 04/03 18:01 Order name: Basic Metabolic Panel; Complete Time: 19:38 EDMS 04/03 18:29 Order name: Urine Dipstick--Ancillary (enter results); Complete Time: 19:38 bd 04/03 21:29 Order name: Troponin I cp 04/03 21:30 Order name: Troponin I; Complete Time: 22:36 EDMS 04/03 18:00 Order name: Orthostatics; Complete Time: 18:49 cp 04/03 18:00 Order name: EKG; Complete Time: 18:01 cp 04/03 18:00 Order name: Cardiac monitoring; Complete Time: 18:07 cp 04/03 18:00 Order name: EKG - Nurse/Tech; Complete Time: 18:07 cp 04/03 18:00 Order name: IV Saline Lock; Complete Time: 18:22 cp 04/03 18:00 Order name: Labs collected and sent; Complete Time: 18:22 cp 04/03 18:00 Order name: O2 Per Protocol; Complete Time: 18:02 cp 04/03 18:00 Order name: O2 Sat Monitoring; Complete Time: 18:02 cp 04/03 18:00 Order name: Urine Dipstick-Ancillary (obtain specimen); Complete Time: 18:49 cp 04/03 20:09 Order name: CT Head Angio cp 04/03 20:09 Order name: CT Neck Angio cp EC:05 Rate is 66 beats/min. Rhythm is regular. AK interval is prolonged at 232 msec. QRS cp interval is normal. QT interval is normal. T waves are Flattened in leads aVL, aVR. Interpreted by me. Reviewed by me. Administered Medications: 18:20 Drug: NS 0.9% 500 ml Route: IV; Rate: bolus; Site: left antecubital; tw2 20:50 Follow up: Response: No adverse reaction; IV Status: Completed infusion; IV Intake: mg2 500ml 19: Drug: SOLU-Medrol 125 mg Route: IVP; Site: left antecubital; mg2 20:02 Follow up: Response: No adverse reaction em 19:34 Drug: NS 0.9% 500 ml Route: IV; Rate: 250 ml/hr; Site: left antecubital; mg2 20:02 Drug: Meclizine 25 mg Route: PO; em 20:49 Follow up: Response: No adverse reaction mg2 20:02 Drug: Potassium Effervescent Tablet 50 mEq Route: PO; em 20:49 Follow up: Response: No adverse reaction mg2 Disposition: 04/04 06:27 Co-signature as Attending Physician, Feliciano Hammond MD I agree with the assessment and tw4 plan of care. Disposition: 04/03/20 22:38 Discharged to Home. Impression: Dizziness and giddiness, Other chest pain - from bee sting, Nausea, Hypertensive heart disease. - Condition is Stable. - Discharge Instructions: Nonspecific Chest Pain, Dizziness, Hypertension, Nausea, Adult. - Prescriptions for Meclizine 25 mg Oral Tablet - take 1 tablet by ORAL route every 8 hours As needed; 30 tablet. Zofran 4 mg Oral Tablet - take 1 tablet by ORAL route every 12 hours As needed; 20 tablet. Prednisone 20 mg Oral Tablet - take 2 tablet by ORAL route once daily for 5 days; 10 tablet. - Medication Reconciliation Form, Thank You Letter, Antibiotic Education, Prescription Opioid Use form. - Follow up: Private Physician; When: 2 - 3 days; Reason: Recheck today's complaints. - Problem is new. - Symptoms have improved. Signatures: Dispatcher [employer] EDMS Alec Lafleur RN RN em Freddy Dumont PA PA cp Favio Schuster, RAINE TRAFFIC ANALYST pm1 Caity Luo RN RN tw2 Feliciano Hammond MD MD tw4 Facundo Ribeiro RN RN mg2 Corrections: (The following items were deleted from the chart) 04/03 22:49 22:38 04/03/2020 22:38 Discharged to Home. Impression: Dizziness and giddiness; Other mg2 chest pain - from bee sting; Nausea; Hypertensive heart disease. Condition is Stable. Discharge Instructions: Dizziness, Nausea, Adult, Hypertension, Nonspecific Chest Pain. Prescriptions for Meclizine 25 mg Oral Tablet - take 1 tablet by ORAL route every 8 hours As needed; 30 tablet, Zofran 4 mg Oral Tablet - take 1 tablet by ORAL route every 12 hours As needed; 20 tablet, Prednisone 20 mg Oral Tablet - take 2 tablet by ORAL route once daily for 5 days; 10 tablet. and Forms are Medication Reconciliation Form, Thank You Letter, Antibiotic Education, Prescription Opioid Use. Follow up: Private Physician; When: 2 - 3 days; Reason: Recheck today's complaints. Problem is new. Symptoms have improved. pm1
[2020-04-04 00:54] VITALS: TEMP 98.5; O2SAT 100
[2020-04-04 00:56] VITALS: BP 151/90
--- NOTE | 2020-04-04 11:07 | RAD REPORT ---
EXAM DESCRIPTION: CTHead angio04/04/2020 6:36 am CLINICAL HISTORY: DIZZINESS COMPARISON: CT head without contrast April 03 2020 TECHNIQUE: Multiple helical axial tomographic images were obtained of the head and neck following ad ministration of intravenous contrast per angiographic protocol. Coronal and sagittal reformatted imag es were obtained. This exam was performed according to our departmental dose-optimization program, wh ich includes automated exposure control, adjustment of the mA and/or kV according to patient size and /or use of iterative reconstruction technique. FINDINGS: Head: Intracranial segments of the bilateral internal carotid arteries appear patent without significant st enosis or occlusion. Bilateral anterior and middle cerebral arteries appear patent without significan t stenosis or occlusion. Intracranial segments of the bilateral vertebral arteries, basilar artery, a nd posterior cerebral arteries appear patent without significant stenosis or occlusion. No evidence o f intracranial aneurysm. There is no acute intracranial hemorrhage. No mass. No midline shift. No ventriculomegaly. Varghese-white matter differentiation is maintained. Paranasal sinuses are clear. Mastoid air cells and middle ear spaces are clear. Orbits and orbital co ntents are unremarkable. Osseous structures are unremarkable. Surrounding soft tissues are unremarkable. Neck: Small amount of atherosclerotic plaque involving the left carotid bulb noted. Carotid and vertebral a rterial vasculature of the neck appears patent without significant stenosis or occlusion. A few nonspecific subcentimeter hypodensities in the thyroid gland are present. Salivary glands appea r unremarkable. No evidence of adenopathy. Retropharyngeal space appears normal. Epiglottis appears n ormal. Larynx and vocal folds appear unremarkable. Visualized lungs are clear. Osseous structures are unremarkable. IMPRESSION: 1. No evidence of major intracranial arterial occlusion. 2. No evidence of significant carotid stenosis or occlusion within the neck. Electronically signed by: Garland Wang MD 04/03/2020 10:05 PM CEMENT MIXER DRIVER Due to temporary technical issues with the PACS/Fluency reporting system, reports are being signed by the in house radiologists without review as a courtesy to insure prompt reporting. The interpreting radiologist is fully responsible for the content of the report.
--- NOTE | 2020-04-04 12:38 | RAD REPORT ---
EXAM DESCRIPTION: CTNeck Angio04/04/2020 6:36 am CLINICAL HISTORY: DIZZINESS COMPARISON: CT head without contrast April 03 2020 TECHNIQUE: Multiple helical axial tomographic images were obtained of the head and neck following ad ministration of intravenous contrast per angiographic protocol. Coronal and sagittal reformatted imag es were obtained. This exam was performed according to our departmental dose-optimization program, wh ich includes automated exposure control, adjustment of the mA and/or kV according to patient size and /or use of iterative reconstruction technique. FINDINGS: Head: Intracranial segments of the bilateral internal carotid arteries appear patent without significant st enosis or occlusion. Bilateral anterior and middle cerebral arteries appear patent without significan t stenosis or occlusion. Intracranial segments of the bilateral vertebral arteries, basilar artery, a nd posterior cerebral arteries appear patent without significant stenosis or occlusion. No evidence o f intracranial aneurysm. There is no acute intracranial hemorrhage. No mass. No midline shift. No ventriculomegaly. Varghese-white matter differentiation is maintained. Paranasal sinuses are clear. Mastoid air cells and middle ear spaces are clear. Orbits and orbital co ntents are unremarkable. Osseous structures are unremarkable. Surrounding soft tissues are unremarkable. Neck: Small amount of atherosclerotic plaque involving the left carotid bulb noted. Carotid and vertebral a rterial vasculature of the neck appears patent without significant stenosis or occlusion. A few nonspecific subcentimeter hypodensities in the thyroid gland are present. Salivary glands appea r unremarkable. No evidence of adenopathy. Retropharyngeal space appears normal. Epiglottis appears n ormal. Larynx and vocal folds appear unremarkable. Visualized lungs are clear. Osseous structures are unremarkable. IMPRESSION: 1. No evidence of major intracranial arterial occlusion. 2. No evidence of significant carotid stenosis or occlusion within the neck. Electronically signed by: Garland Wang MD 04/03/2020 10:05 PM PACKING LINE OPERATOR Due to temporary technical issues with the PACS/Fluency reporting system, reports are being signed by the in house radiologists without review as a courtesy to insure prompt reporting. The interpreting radiologist is fully responsible for the content of the report.
--- NOTE | 2020-04-05 | EKG ---
Test Date: 2020-04-03 Test Time: 18:00:18 Chief Electrician: KRISTIAN MEASUREMENT RESULTS: Intervals: Rate: 66 OK: 232 QRSD: 94 QT: 400 QTc: 419 [place]: P: 79 OK: 232 QRS: 56 T: 67 INTERPRETIVE STATEMENTS: Sinus rhythm with 1st degree AV block Incomplete right bundle branch block Septal infarct, age undetermined Abnormal ECG Compared to ECG 12/23/2019 23:49:05 First degree AV block now present Incomplete right bundle-branch block now present Myocardial infarct finding still present Electronically Signed On 04-04-20 23:58:30 WET PROCESS TECHNICIAN by Jacinto Zamora
== END 2020-04-03 22:49 | disposition home or self-care (01) ==
LOC: ER 17:53
DX: R07.89 Other chest pain (principal); I11.9 Hypertensive heart disease without heart failure; R11.0 Nausea; I10 Essential (primary) hypertension; W57.XXXA Bitten or stung by nonvenomous insect and other nonvenomous arthropods, initial encounter; Z88.5 Allergy status to narcotic agent; Z88.6 Allergy status to analgesic agent; Z88.8 Allergy status to other drugs, medicaments and biological substances; Z91.018 Allergy to other foods
CPT/HCPCS: 36415; 70450; 70496; 70498; 71045; 80048; 80076; 81003; 81015; 83735; 83880; 84484; 85025; 85610; 93005; 96361; 96374; 99284; J2930; J7030; J7050; Q9967

== ENCOUNTER 2020-05-06 10:31 | Emergency (ER) | payer SELFPAY ==
--- OUTSIDE RECORDS SUMMARY | 2020-05-06 10:34 | XMS REPORT | Continuity of Care Document ---
:1965 Author Organization [facility] t Address [address] [place] [address] Care Team Providers Name Role Phone Pat MARTINEZ Attending Clinician Problems This patient has no known problems. Allergies, Adverse Reactions, Alerts This patient has no known allergies or adverse reactions. Medications This patient has no known medications. Procedures This patient has no known procedures. Encounters Start End Encounter Admission Attending Care Care Encounter Source Date/Time Date/Time Type Type Clinicians Facility Department ID 2019-02-25 2019-02-25 Emergency Stewart NDVISHAL [id number] 15:32:56 17:51:00 Ray Burns [id number] [place] [id number] [place] [id number] Results This patient has no known results.
--- NOTE | 2020-05-06 11:13 | RAD REPORT ---
EXAM DESCRIPTION: CT - Head Brain Wo Cont - 05/06/2020 11:04 am CLINICAL HISTORY: Headache COMPARISON: March 2020 TECHNIQUE: Computed axial tomography of the head was obtained. IV contrast was not requested. All CT scans are performed using dose optimization technique as appropriate and may include automated exposure control or mA/KV adjustment according to patient size. FINDINGS: An intracranial bleed is not seen . The ventricles are normal in caliber. No extra-axial fluid collection is noted. Fluid within the sinuses/ mastoids is not seen. IMPRESSION: No acute intracranial abnormality is seen. If patient's symptoms persist MRI of the bra in would be recommended.
[2020-05-06] MEDS ORDERED: dexAMETHasone 10 MG/ML VIAL ONE (11:23)
[2020-05-06] MEDS ORDERED: NA CHLORIDE 0.9% 1,000 ML ONE (11:24)
[2020-05-06] MEDS ORDERED: ONDANSETRON 4 MG/2 ML VIAL ONE (11:24)
--- NOTE | 2020-05-06 11:38 | ER ---
Nurse's Notes [facility] – [place], [place] Name: Jesenia Rodriguez Age: 54 yrs Sex: Female : 1965 Arrival Date: 05/06/2020 Time: 10:35 Bed 13 Private MD: Diagnosis: Headache Presentation: 05/06 10:46 Chief complaint: Patient states: Headache and nausea since this AM. Positive COVID bw contacts, but has had both vaccines. Coronavirus screen: At this time, unable to obtain information related to travel outside the [place] Client presents with at least one sign or symptom that may indicate coronavirus-19. Standard/surgical mask placed on the client. Ebola Screen: No symptoms or risks identified at this time. Initial Sepsis Screen: Does the patient meet any 2 criteria? No. Patient's initial sepsis screen is negative. Does the patient have a suspected source of infection? No. Patient's initial sepsis screen is negative. Risk Assessment: Do you want to hurt yourself or someone else? Patient reports no desire to harm self or others. Onset of symptoms was May 06, 2020 at 07:30. 10:46 Method Of Arrival: Ambulatory bw 10:46 Acuity: BRIAN 3 bw Triage Assessment: 10:50 General: Appears in no apparent distress. uncomfortable, Behavior is calm, cooperative, bw appropriate for age. Pain: Complains of pain in occipital area and base of the skull. EENT: No deficits noted. No signs and/or symptoms were reported regarding the EENT system. Neuro: No deficits noted. Reports headache back of head and neck. Cardiovascular: No deficits noted. Respiratory: No deficits noted. GI: Reports nausea. : No deficits noted. Derm: No deficits noted. Musculoskeletal: No deficits noted. No signs and/or symptoms reported regarding the musculoskeletal system. 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 - Social history:: Smoking status: unknown. - Family history:: not pertinent. - Hospitalizations: : No recent hospitalization is reported. Screenin:52 Abuse screen: Denies threats or abuse. Nutritional screening: No deficits noted. bw Tuberculosis screening: No symptoms or risk factors identified. Fall Risk None identified. Assessment: 10:52 Reassessment: see triage assessment. GI: Abdomen is flat, non-distended. bw 11:38 Reassessment: Patient appears in no apparent distress at this time. Patient and/or bw family updated on plan of care and expected duration. Pain level reassessed. Patient is alert, oriented x 3, equal unlabored respirations, skin warm/dry/pink. Vital Signs: 10:46 BP 131 / 102; Pulse 78; Resp 18; Temp 98.4; Pulse Ox 100% on R/A; Pain 8/10; bw 11:38 BP 144 / 85; Pulse 79; Resp 18; Pulse Ox 100% on R/A; bw Gm Coma Score: 11:37 Eye Response: spontaneous(4). Verbal Response: oriented(5). Motor Response: obeys rn commands(6). Total: 15. ED Course: 10:35 Patient arrived in ED. mr 10:38 Malick Lei MD is Attending Physician. rn 10:46 Rachael Meadows, LUIGI is Primary Nurse. bw 10:48 Triage completed. bw 10:50 Arm band placed on right wrist. bw 10:52 Patient has correct armband on for positive identification. Call light in reach. Side bw rails up X 1. Pulse ox on. NIBP on. Warm blanket given. 10:52 No provider procedures requiring assistance completed. bw 11:00 Inserted saline lock: 20 gauge in right antecubital area, using aseptic technique. mt 11:04 CT Head Brain wo Cont In Process Unspecified. EDMS 11:55 IV discontinued. bw Administered Medications: 10:59 CANCELLED (allergic): Demerol - Meperidine 12.5 mg IVP once; RASS on ADMIN: Combtv4, rn Very Agttd3, Agttd2, Rstlss1, AlertClm0, Drwsy-1, Lt Sdtn-2, Mod Sdtn-3, Dp Sdtn-4, UnArsble-5 11:19 Drug: NS 0.9% 1000 ml Route: IV; Rate: 1000 ml; Site: right antecubital; 11:39 Follow up: Response: No adverse reaction; IV Status: Completed infusion 11:19 Drug: Decadron - Dexamethasone 10 mg Route: IVP; Site: right antecubital; 11:39 Follow up: Response: No adverse reaction Outcome: 11:38 Discharge ordered by . rn 11:55 Discharged to home ambulatory. 11:55 Condition: stable 11:55 Discharge instructions given to patient, Instructed on discharge instructions. 12:05 Patient left the ED. Signatures: Dispatcher [employer] Komal Villalba Roman, MD MD rn Thompson, Moriah mt Webb, Bethany, RN RN
--- NOTE | 2020-05-06 11:38 | EDPHYS ---
Physician Documentation [facility] Name: Jesenia Rodriguez Age: 54 yrs Sex: Female : 1965 Arrival Date: 05/06/2020 Time: 10:35 Bed 13 Private MD: ED Physician Malick Lei HPI: 05/06 11:19 This 54 yrs old Black Female presents to ER via Ambulatory with complaints of Nausea, rn Headache. 11:20 The patient complains of pain to the occipital area. The patient describes the headache rn as aching. Onset: The symptoms/episode began/occurred this morning. Associated signs and symptoms: Pertinent positives: nausea, Pertinent negatives: altered mental status, dizziness, fever, neck stiffness, Photophobia vision loss, vomiting, vertigo. Severity of symptoms: At its worst the pain was moderate, in the emergency department the pain is unchanged. The symptoms are alleviated by nothing. the symptoms are aggravated by nothing. The patient has experienced similar episodes in the past. Reports headache back of head, began this morning, no fever, no trauma, has hx of migraines but feels slightly different. No focal neuro complaints. No vision changes. . 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 - Social history:: Smoking status: unknown. - Family history:: not pertinent. - Hospitalizations: : No recent hospitalization is reported. ROS: 11:20 Constitutional: Negative for fever, chills, and weight loss, Eyes: Negative for injury, rn pain, redness, and discharge, Neck: Negative for injury, pain, and swelling, Cardiovascular: Negative for chest pain, palpitations, and edema, Respiratory: Negative for shortness of breath, cough, wheezing, and pleuritic chest pain, Abdomen/GI: Negative for abdominal pain, vomiting, diarrhea, and constipation, MS/Extremity: Negative for injury and deformity, Skin: Negative for injury, rash, and discoloration, Neuro: Negative for weakness, numbness, tingling, and seizure. Exam: 11:20 Constitutional: This is a well developed, well nourished patient who is awake, alert, rn and in no acute distress. Head/Face: Normocephalic, atraumatic. Eyes: Pupils equal round and reactive to light, extra-ocular motions intact. Lids and lashes normal. Conjunctiva and sclera are non-icteric and not injected. Cornea within normal limits. Periorbital areas with no swelling, redness, or edema. Neck: Supple, full range of motion without nuchal rigidity. No Meningismus. Cardiovascular: Regular rate and rhythm. No pulse deficits. Respiratory: No increased work of breathing, no retractions or nasal flaring. Skin: Warm, dry with normal turgor. Normal color with no rashes, no lesions, and no evidence of cellulitis. MS/ Extremity: Pulses equal, no cyanosis. Neurovascular intact. Full, normal range of motion. Equal circumference. Neuro: Awake and alert, GCS 15, oriented to person, place, time, and situation. Cranial nerves II-XII grossly intact. Motor strength 5/5 in all extremities. Sensory grossly intact. Cerebellar exam normal. Normal gait. Vital Signs: 10:46 BP 131 / 102; Pulse 78; Resp 18; Temp 98.4; Pulse Ox 100% on R/A; Pain 8/10; bw 11:38 BP 144 / 85; Pulse 79; Resp 18; Pulse Ox 100% on R/A; bw Gm Coma Score: 11:37 Eye Response: spontaneous(4). Verbal Response: oriented(5). Motor Response: obeys rn commands(6). Total: 15. MDM: 10:38 Patient medically screened. rn 11:37 Differential diagnosis: hypertensive headache, migraine, tension headache, vasomotor rn headache. Data reviewed: vital signs, nurses notes, radiologic studies, CT scan, and as a result, I will discharge patient. Counseling: I had a detailed discussion with the patient and/or guardian regarding: the historical points, exam findings, and any diagnostic results supporting the discharge/admit diagnosis, radiology results, the need for outpatient follow up, to return to the emergency department if symptoms worsen or persist or if there are any questions or concerns that arise at home. Response to treatment: the patient's symptoms have mildly improved after treatment. Special discussion: I discussed with the patient/guardian in detail that at this point there is no indication for admission to the hospital. It is understood, however, that if the symptoms persist or worsen the patient needs to return immediately for re-evaluation. 05/06 10:45 Order name: CT Head Brain wo Cont; Complete Time: 11:17 rn 05/06 10:45 Order name: IV Start; Complete Time: 11:00 rn Administered Medications: 10:59 CANCELLED (allergic): Demerol - Meperidine 12.5 mg IVP once; RASS on ADMIN: Combtv4, rn Very Agttd3, Agttd2, Rstlss1, AlertClm0, Drwsy-1, Lt Sdtn-2, Mod Sdtn-3, Dp Sdtn-4, UnArsble-5 11:19 Drug: NS 0.9% 1000 ml Route: IV; Rate: 1000 ml; Site: right antecubital; bw 11:39 Follow up: Response: No adverse reaction; IV Status: Completed infusion bw 11:19 Drug: Decadron - Dexamethasone 10 mg Route: IVP; Site: right antecubital; bw 11:39 Follow up: Response: No adverse reaction bw Disposition: 05/06/20 11:38 Discharged to Home. Impression: Headache. - Condition is Stable. - Discharge Instructions: General Headache Without Cause. - Medication Reconciliation Form, Thank You Letter, Antibiotic Education, Prescription Opioid Use form. - Follow up: Private Physician; When: As needed; Reason: Recheck today's complaints, Re-evaluation by your physician. - Problem is new. - Symptoms have improved. Signatures: Dispatcher [employer] EDMalick Soler MD MD rn MeadowsRachael RN RN bw Corrections: (The following items were deleted from the chart) 10:59 10:45 Demerol - Meperidine 12.5 mg IVP once; RASS on ADMIN: Combtv4, Very Agttd3, rn Agttd2, Rstlss1, AlertClm0, Drwsy-1, Lt Sdtn-2, Mod Sdtn-3, Dp Sdtn-4, UnArsble-5 ordered. rn 12:05 11:38 05/06/2020 11:38 Discharged to Home. Impression: Headache. Condition is Stable. bw Forms are Medication Reconciliation Form, Thank You Letter, Antibiotic Education, Prescription Opioid Use. Follow up: Private Physician; When: As needed; Reason: Recheck today's complaints, Re-evaluation by your physician. Problem is new. Symptoms have improved. rn
[2020-05-06 22:49] VITALS: BP 144/85; O2SAT 100
== END 2020-05-06 12:05 | disposition home or self-care (01) ==
LOC: ER 10:31
DX: R51.9 Headache, unspecified (principal); I10 Essential (primary) hypertension; Z88.5 Allergy status to narcotic agent; Z88.6 Allergy status to analgesic agent; Z88.8 Allergy status to other drugs, medicaments and biological substances; Z91.018 Allergy to other foods
CPT/HCPCS: 70450; 96374; 99284; J1100; J2405; J7030

== ENCOUNTER 2020-08-03 10:08 | Inpatient (IN) | payer SELFPAY ==
--- OUTSIDE RECORDS SUMMARY | 2020-08-03 10:11 | XMS REPORT | Continuity of Care Document ---
:1965 Author Organization [facility] t Address [address] [place] [address] Care Team Providers Name Role Phone Pat [...] Facility Department ID 2019-02-25 2019-02-25 Emergency Pat [facility] [id number] 15:32:56 17:51:00 Ray Burns [id number] [place] [id number] [place] [phone] [id number] Results This patient has no known results.
[2020-08-03 11:10] LABS: Urine Blood Negative (Negative); Urine Glucose Negative (Negative); Urine Protein Negative (Negative)
--- NOTE | 2020-08-03 11:18 | RAD REPORT ---
EXAM DESCRIPTION: RAD - Chest Single View - 08/03/2020 11:12 am CLINICAL HISTORY: sob Chest pain. COMPARISON: Chest Single View dated 04/03/2020; Chest Single View dated 12/24/2019 FINDINGS: Portable technique limits examination quality. The lungs are grossly clear. The heart is normal in size. No displaced fractures. IMPRESSION: No acute intrathoracic process suspected.
[2020-08-03 11:19] LABS: Absolute Lymphocytes (CBC) 2.3 K/uL (0.7-4.9); Basophils % 0.4 % (0-1.3); Hematocrit 39.9 % (36.0-45.0); Lymphocytes % 35.4 % (15.3-44.8); MPV 8.9 fL (7.6-11.3); RBC Red Blood Cell Count 4.58 M/uL (3.86-4.86)
--- NOTE | 2020-08-03 11:22 | RAD REPORT ---
EXAM DESCRIPTION: CT - Head Brain Wo Cont - 08/03/2020 11:16 am CLINICAL HISTORY: high blood pressure Headache, hypertension COMPARISON: Head Brain Wo Cont dated 05/06/2020; Head angio dated 04/03/2020 TECHNIQUE: All CT scans are performed using dose optimization technique as appropriate and may inclu de automated exposure control or mA/KV adjustment according to patient size. FINDINGS: No intracranial hemorrhage, hydrocephalus or extra-axial fluid collection.No areas of brai n edema or evidence of midline shift. The paranasal sinuses and mastoids are clear. The calvarium is intact. IMPRESSION: No acute intracranial abnormality.
[2020-08-03 11:23] LABS: Protime INR 0.97
[2020-08-03 11:37] LABS: Magnesium 2.7 mg/dL (1.8-2.4)
[2020-08-03 11:45] LABS: Urine Appearance CLEAR (Clear); Urine Bilirubin NEGATIVE (Negative); Urine Blood NEGATIVE (Negative); Urine Color YELLOW (Yellow); Urine Glucose NEGATIVE (Negative); Urine Protein NEGATIVE (Negative); Urine Specific Gravity 1.015 (1.005-1.030); Urine Urobilinogen 0.2 mg/dL (0.2-1.0)
[2020-08-03 13:12] LABS: Urine Bacteria <20 /HPF (<20); Urine RBC <5 /HPF (NONE SEEN)
[2020-08-03 13:24] LABS: CKMB Creatine Kinase MB 0.96 ng/mL; Troponin I 0.004 ng/mL
--- NOTE | 2020-08-03 13:33 | ER ---
Nurse's Notes [facility] Name: Jesenia Rodriguez Age: 54 yrs Sex: Female : 1965 Arrival Date: 08/03/2020 Time: 10:11 Bed 23 Private MD: Diagnosis: Chest pain, unspecified Presentation: 08/03 10:15 Chief complaint: Patient states: "I have been having high blood pressure and vomiting jd3 for accouple of days now with some sleepiness.". Coronavirus screen: Client denies travel out of the [place] in the last 14 days. Ebola Screen: Patient negative for fever greater than or equal to 101.5 degrees Fahrenheit, and additional compatible Ebola Virus Disease symptoms. Initial Sepsis Screen: Does the patient meet any 2 criteria? No. Patient's initial sepsis screen is negative. Does the patient have a suspected source of infection? No. Patient's initial sepsis screen is negative. Risk Assessment: Do you want to hurt yourself or someone else? Patient reports no desire to harm self or others. Onset of symptoms was August 01, 2020. 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 - Social history:: Smoking status: Patient denies any tobacco usage or history of. Screenin:33 Abuse screen: Denies threats or abuse. Denies injuries from another. Nutritional ld1 screening: No deficits noted. Tuberculosis screening: No symptoms or risk factors identified. Fall Risk None identified. Assessment: 10:33 General: Appears in no apparent distress. comfortable, Behavior is calm, cooperative, ld1 appropriate for age, drowsy. Pain: Denies pain. Neuro: Level of Consciousness is awake, alert, obeys commands, Oriented to person, place, time, situation, Appropriate for age. Cardiovascular: Capillary refill < 3 seconds Patient's skin is warm and dry. Respiratory: Airway is patent Respiratory effort is even, unlabored, Respiratory pattern is regular, symmetrical. GI: Abdomen is round non-distended, Reports vomiting. : No signs and/or symptoms were reported regarding the genitourinary system. EENT: No signs and/or symptoms were reported regarding the EENT system. Derm: No signs and/or symptoms reported regarding the dermatologic system. Musculoskeletal: No signs and/or symptoms reported regarding the musculoskeletal system. 11:45 Reassessment: Patient appears in no apparent distress at this time. No changes from ld1 previously documented assessment. 13:00 Reassessment: Patient and/or family updated on plan of care and expected duration. Pain ld1 level reassessed. Patient denies pain at this time. 14:48 Reassessment: Patient appears in no apparent distress at this time. Patient is alert, ld1 oriented x 3, equal unlabored respirations, skin warm/dry/pink. Laying in bed watching TV. Denies concerns at this time. 14:56 Reassessment: Called 2nd floor, receiving nurse unavailable to take report at this time.ld1 Vital Signs: 10:17 BP 152 / 85; Pulse 67; Resp 17 S; Temp 97.5(TE); Pulse Ox 99% on R/A; Weight 72.57 kg jd3 (R); Height 5 ft. 7 in. (170.18 cm) (R); Pain 0/10; 10:33 BP 147 / 110; Pulse 73; Resp 18; Pulse Ox 100% on R/A; ld1 11:45 BP 149 / 93; Pulse 65; Resp 18; Pulse Ox 99% on R/A; ld1 13:00 BP 152 / 85; Pulse 70; Resp 18; Pulse Ox 99% on R/A; ld1 14:25 BP 145 / 80; Pulse 76; Resp 18; Pulse Ox 100% on R/A; ld1 10:17 Body Mass Index 25.06 (72.57 kg, 170.18 cm) jd3 ED Course: 10:11 Patient arrived in ED. mr 10:16 Triage completed. jd3 10:17 Atul Head PA is PHCP. [facility] 10:17 Guillermo Richter MD is Attending Physician. [facility] 10:18 Wendi Hitchcock, RN is Primary Nurse. ld1 10:33 Patient has correct armband on for positive identification. Bed in low position. Call ld1 light in reach. Side rails up X2. monitor car operator on. Pulse ox on. NIBP on. Door closed. Noise minimized. Warm blanket given. 10:33 No provider procedures requiring assistance completed. ld1 11:12 Chest Single View In Process Unspecified. EDMS 11:15 Urine collected: clean catch specimen, clear, EKG done, by ED staff, reviewed by Atul RAGSDALE. 11:16 Head Brain Wo Cont In Process Unspecified. EDMS 13:32 Bony Klein DO is Hospitalizing Provider. jmm 15:39 Arm band placed on right wrist. ld1 15:39 Patient admitted, IV remains in place. intact, No redness/swelling at site. ld1 Administered Medications: 13:44 Drug: Aspirin Chewable Tablet 324 mg Route: PO; ld1 15:38 Follow up: Response: No adverse reaction ld1 Outcome: 13:32 Decision to Hospitalize by Provider. jmm 15:12 Patient left the ED. eb 15:38 Admitted to Med/surg accompanied by nurse, via wheelchair, room 214, with chart, Report ld1 called to LUIGI Mcarthur> 15:38 Condition: stable 15:38 Instructed on the need for admit. Signatures: Dispatcher [employer] EDKS Atlu Head PA PA [facility] Komla Keller mr EngelNadir RN RN Marya Cheek Wendi Hitchcock, RN RN ld1
--- NOTE | 2020-08-03 13:33 | EDPHYS ---
Physician Documentation [facility] Name: Jesenia Rodriguez Age: 54 yrs Sex: Female : 1965 Arrival Date: 08/03/2020 Time: 10:11 Bed 23 Private MD: ED Physician Guillermo Richter HPI: 08/03 10:36 This 54 yrs old Black Female presents to ER via Ambulatory with complaints of High jmm Blood Pressure. 10:36 Onset: The symptoms/episode began/occurred gradually, 1 day(s) ago. Associated signs jmm and symptoms: Pertinent positives: chest pain, vomiting. This is a 54 year old female with a history of htn that presents to the ED with complaints of vomiting, chest pain beginning yesterday. Patient states she awoke from a nap with elevated blood pressure. Chest pain was most intense for approx 1 hour with radiation to the left arm. States having vomiting, denies abdominal pain. States having diarrhea the previous week. Patient then took her prescribed propanolol which reduced her BP. Patient states she continues to have fatigue and mild chest pain. . 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 - Social history:: Smoking status: Patient denies any tobacco usage or history of. ROS: 10:36 Constitutional: Positive for body aches. jmm 10:36 Cardiovascular: Positive for chest pain. 10:36 Neuro: Positive for weakness. 10:36 All other systems are negative. Exam: 10:36 Constitutional: This is a well developed, well nourished patient who is awake, alert, jmm and in no acute distress. Head/Face: atraumatic. Eyes: EOMI, no conjunctival erythema appreciated ENT: Moist Mucus Membranes Neck: Trachea midline, Supple Chest/axilla: Normal chest wall appearance and motion. Cardiovascular: Regular rate and rhythm. No edema appreciated Respiratory: Normal respirations, no respiratory distress appreciated Abdomen/GI: Non distended, soft Back: Normal ROM Skin: General appearance color normal MS/ Extremity: Moves all extremities, no obvious deformities appreciated, no edema noted to the lower extremities Neuro: Awake and alert, normal gait Psych: Behavior is normal, Mood is normal, Patient is cooperative and pleasant Vital Signs: 10:17 BP 152 / 85; Pulse 67; Resp 17 S; Temp 97.5(TE); Pulse Ox 99% on R/A; Weight 72.57 kg jd3 (R); Height 5 ft. 7 in. (170.18 cm) (R); Pain 0/10; 10:33 BP 147 / 110; Pulse 73; Resp 18; Pulse Ox 100% on R/A; ld1 11:45 BP 149 / 93; Pulse 65; Resp 18; Pulse Ox 99% on R/A; ld1 13:00 BP 152 / 85; Pulse 70; Resp 18; Pulse Ox 99% on R/A; ld1 14:25 BP 145 / 80; Pulse 76; Resp 18; Pulse Ox 100% on R/A; ld1 10:17 Body Mass Index 25.06 (72.57 kg, 170.18 cm) jd3 MDM: 10:36 Patient medically screened. ashish 13:30 Data reviewed: vital signs, nurses notes. Counseling: I had a detailed discussion with ashish the patient and/or guardian regarding: the historical points, exam findings, and any diagnostic results supporting the discharge/admit diagnosis, lab results, radiology results, the need for outpatient follow up, the need for further work-up and treatment in the hospital. ED course: Patient alert and non toxic in appearance in the ED. Abdomen soft. Patient admitted to Dr. Klein service. . 08/03 10:54 Order name: Basic Metabolic Panel; Complete Time: 11:45 EDMS 08/03 10:54 Order name: CBC with Automated Diff; Complete Time: 11:21 EDMS 08/03 10:54 Order name: Creatine Phosphokinase; Complete Time: 11:45 EDMS 08/03 10:54 Order name: Magnesium; Complete Time: 11:45 EDMS 08/03 10:54 Order name: Protime (+INR); Complete Time: 11:45 EDMD 08/03 10:55 Order name: PTT, Activated Partial Thromb; Complete Time: 11:45 EDMD 08/03 11:10 Order name: Urine Dipstick-Ancillary; Complete Time: 11:11 EDMD 08/03 11:17 Order name: Urinalysis W/Microscopic; Complete Time: 13:13 EDMS 08/03 11:17 Order name: Urine Culture EDMD 08/03 11:20 Order name: CKMB Creatine Kinase MB; Complete Time: 13:27 EDMD 08/03 11:20 Order name: Troponin I; Complete Time: 13:27 EDMS 08/03 10:54 Order name: EKG Electrocardiogram EDMS 08/03 10:55 Order name: Chest Single View; Complete Time: 11:20 EDMD 08/03 11:02 Order name: Head Brain Wo Cont; Complete Time: 11:32 EDMD 08/03 11:20 Order name: NT PRO-BNP; Complete Time: 13:27 EDMS Administered Medications: 13:44 Drug: Aspirin Chewable Tablet 324 mg Route: PO; ld1 15:38 Follow up: Response: No adverse reaction ld1 Disposition: 08/03/20 13:32 Hospitalization ordered by Bony Klein for Observation. Diagnosis is Chest pain, unspecified. - Bed requested for Telemetry/MedSurg (observation). - Status is Observation. eb - Condition is Stable. - Problem is new. - Symptoms are unchanged. Addendum: 08/09/2020 20:04 Co-signature as Attending Physician, Guillermo Richter MD. m a2 Signatures: Dispatcher [employer] [facility] Atul Head PA PA jmm Davies, Jonathon, RN RN jd3 Guillermo Richter MD MD ma2 Marya Weinstein Lauren, RN RN ld1 Corrections: (The following items were deleted from the chart) 08/03 11:02 10:54 CT-HEAD/BRAIN W/O CONTRAST ordered. EDMD EDMS 11:19 10:54 CKMB Creatine Kinase MB ordered. EDMD EDMS 11:19 10:54 NT PRO-BNP ordered. EDMD EDMD 11:19 10:55 Troponin (Emerg Dept Use Only) ordered. EDMD EDMD 13:15 13:07 CBC with Automated Diff ordered. EDMS EDMS 14:35 13:32 Hospitalization Ordered by Bony Klein DO for Observation. Preliminary eb diagnosis is Chest pain, unspecified. Bed requested for Telemetry/MedSurg (observation). Status is Observation. Condition is Stable. Problem is new. Symptoms are unchanged. [facility] 15:12 14:35 08/03/2020 13:32 Hospitalization Ordered by Bony Klein DO for Observation. eb Preliminary diagnosis is Chest pain, unspecified. Bed requested for Telemetry/MedSurg (observation). Status is Observation. Condition is Stable. Problem is new. Symptoms are unchanged. eb
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
[2020-08-03] MEDS ORDERED: ASPIRIN 81 MG CHEWABLE TABLET ONE (13:55)
[2020-08-03] MEDS ORDERED: SUMATRIPTAN SUCCI 50 MG TAB PO PRN (15:18)
[2020-08-03] MEDS ORDERED: ONDANSETRON 4 MG/2 ML VIAL IV PRN (15:18)
[2020-08-03] MEDS: NA CHLORIDE 0.9% 1,000 ML IV SCH (16:43)
[2020-08-03] MEDS: ENOXAPARIN 40 MG/0.4 ML SQ SCH (16:44)
[2020-08-03] MEDS: AMLODIPINE 5 MG TAB PO SCH (16:44)
[2020-08-03 17:29] VITALS: BMI 25.0
[2020-08-03 19:53] LABS: Creatine Phosphokinase 133 U/L (26-192); Troponin I < 0.02 ng/mL (0.0-0.045)
[2020-08-03 19:54] LABS: CKMB Creatine Kinase MB < 1.0 ng/mL (1.0-3.6)
[2020-08-03] MEDS: FAMOTIDINE 20 MG TAB PO SCH (21:00)
[2020-08-03] MEDS ORDERED: TOPIRAMATE 25 MG TAB PO SCH (21:00)
[2020-08-03] MEDS: carBAMazepine 200 MG TAB PO SCH (21:00)
[2020-08-04 04:55] LABS: CKMB Creatine Kinase MB < 1.0 ng/mL (1.0-3.6); Creatine Phosphokinase 116 U/L (26-192); Troponin I < 0.02 ng/mL (0.0-0.045)
[2020-08-04] MEDS: NA CHLORIDE 0.9% 1,000 ML IV SCH (05:04)
[2020-08-04 05:11] LABS: Magnesium 2.5 mg/dL (1.8-2.4); Potassium 3.8 mmol/L (3.5-5.1); Thyroid Stimulating Hormone 0.304 uIU/mL (0.360-3.740)
--- NOTE | 2020-08-04 06:03 | P.DS ---
Admission Date: 08/04/20 Discharge Date: 08/04/20 Primary Care Provider: Petr Yuan Disposition: ROUTINE DISCHARGE Discharge Condition: GOOD Reason for Admission: chest pain Consultations: Cardiology-Dr. Zamora Procedures: CT Head: FINDINGS: No intracranial hemorrhage, hydrocephalus or extra-axial fluid collection.No areas of brain edema or evidence of midline shift. The paranasal sinuses and mastoids are clear. The calvarium is intact. IMPRESSION: No acute intracranial abnormality. CXR: Unremarkable C spine: FINDINGS: Mild posterior subluxation C5 on C6. Moderate spondylosis of consistent disc space narrowing and osteophytes at this level. The oblique views demonstrate bony encroachment upon the neural foramina. Mild spondylosis involves the remainder of the cervical spine No fracture or dislocation Left Shoulder xray: FINDINGS: No fracture or dislocation is seen. Mild to moderate osteoarthritis involves the AC joint consisting of small osteophytes and joint space narrowing. Bones appear osteoporotic Medical problem List: Chest pain HTN, uncontrolled Migraine headaches Hyperlipidemia Left Shoulder pain with mild/moderate osteoarthritis Brief History of Present Illness: 54-year-old -[place] female with history of hypertension and migraines presented to the emergency room with chest pain. Patient reported left-sided chest pain. This radiated to the left arm and neck. It was associated with some nausea and vomiting. She denied any shortness of breath, dizziness. Patient with underlying history of hypertension and migraines. Chest pain mild. Patient came to the ER for further evaluation. In the ER patient was evaluated. Initial cardiac enzymes unremarkable. CBC unremarkable. BMP shows sodium of 142, potassium 4.0. BUN of 20, creatinine 1.18 with a GFR 58. Glucose 102. CT head unremarkable. Chest x-ray unremarkable. No significant EKG changes noted. Patient admitted for further evaluation and treatment. Blood pressure is initially elevated. Hospital Course: Patient presented with chest pain and uncontrolled hypertension. Patient was evaluated overnight. Cardiac enzymes unremarkable. Patient was seen by cardiology. No cardiac intervention required at this time. Blood pressure improved with adjustments in medication. At discharge the patient will continue with aspirin 81 mg daily, Norvasc 5 mg daily, and propanolol 20 mg daily. Recommend to maintain blood pressure less than 130/80. Further adjustment can be done by her PCP. Recommend follow-up with cardiology as an outpatient to further evaluate. Patient would benefit with outpatient cardiac stress test. This can be done with the help of cardiology. Patient with migraine headaches. At discharge patient will continue with her current medications including carbamazepine, Topamax and Maxalt. Recommend follow-up with neurology as an outpatient to further monitor and adjust medication. Patient also found to have hyperlipidemia. LDL elevated at 146. Recommend to start Lipitor 10 mg daily. Recommend to recheck fasting lipid panel in 4 to 6 weeks to monitor her progress. Lifestyle modification education provided. Patient left shoulder pain. Xray shows some arthritis. Recommend Ibuprofen 400 mg up to three times a day as needed for pain. Recommend Orthopedic evaluation to further evaluate as the patient may require further intervention. Vital Signs/Physical Exam: Temp Pulse Resp BP Pulse Ox 97.0 F 68 16 112/71 96 08/04/20 04:00 08/04/20 04:00 08/04/20 04:00 08/04/20 04:00 08/04/20 04:00 General: Alert, In no apparent distress, Oriented x3, Cooperative HEENT: Atraumatic Neck: Supple Respiratory: Clear to auscultation bilaterally, Normal air movement Cardiovascular: Normal pulses, Regular rate/rhythm Gastrointestinal: Normal bowel sounds, No tenderness, No masses, No rebound, No guarding Musculoskeletal: No erythema, No tenderness, No warmth Integumentary: No tenderness/swelling Neurological: Normal speech, Normal strength at 5/5 x4 extr, Normal tone, Normal affect Laboratory Data at Discharge: WBC Cancelled 08/03/20 13:06 Hgb Cancelled 08/03/20 13:06 Hct Cancelled 08/03/20 13:06 Plt Count Cancelled 08/03/20 13:06 PT 11.1 SECONDS (9.5-12.5) 08/03/20 11:00 INR 0.97 08/03/20 11:00 APTT 30.3 SECONDS (24.3-36.9) 08/03/20 11:00 Sodium 144 mmol/L (136-145) 08/04/20 03:20 Potassium 3.8 mmol/L (3.5-5.1) 08/04/20 03:20 BUN 17 mg/dL (7-18) 08/04/20 03:20 Creatinine 1.09 mg/dL (0.55-1.3) 08/04/20 03:20 Glucose 89 mg/dL (74-106) 08/04/20 03:20 Magnesium 2.5 mg/dL (1.8-2.4) H 08/04/20 03:20 Troponin I < 0.02 ng/mL (0.0-0.045) 08/04/20 03:20 Triglycerides 72 mg/dL (<150) 08/04/20 03:20 Cholesterol 213 mg/dL (<200) H 08/04/20 03:20 HDL Cholesterol 53 mg/dL (40-60) 08/04/20 03:20 Cholesterol/HDL Ratio 4.02 08/04/20 03:20 Home Medications: Carbamazepine [Tegretol] 2 tab PO BID 08/03/20 Propranolol HCl 20 mg PO DAILY 08/03/20 Rizatriptan Benzoate [Rizatriptan] 1 - 2 tab PO DAILY 08/03/20 Topiramate [Topamax] 50 mg PO DAILY 08/03/20 Amlodipine [Norvasc*] 5 mg PO DAILY #30 tab 08/04/20 Aspirin [Aspirin EC 81 MG] 81 mg PO DAILY #90 tablet. 08/04/20 Atorvastatin Calcium [Lipitor] 10 mg PO BEDTIME #30 tab 08/04/20 New Medications: Aspirin [Aspirin EC 81 MG] 81 mg PO DAILY #90 tablet. Atorvastatin Calcium [Lipitor] 10 mg PO BEDTIME #30 tab Amlodipine [Norvasc*] 5 mg PO DAILY #30 tab Physician Discharge Instructions: Patient presented with chest pain and uncontrolled hypertension. Patient was evaluated overnight. Cardiac enzymes unremarkable. Patient was seen by cardiology. No cardiac intervention required at this time. Blood pressure improved with adjustments in medication. At discharge the patient will continue with aspirin 81 mg daily, Norvasc 5 mg daily, and propanolol 20 mg daily. Recommend to maintain blood pressure less than 130/80. Further adjustment can be done by her PCP. Recommend follow-up with cardiology as an outpatient to further evaluate. Patient would benefit with outpatient cardiac stress test. This can be done with the help of cardiology. Patient with migraine headaches. At discharge patient will continue with her current medications including carbamazepine, Topamax and Maxalt. Recommend follow-up with neurology as an outpatient to further monitor and adjust medication. Patient also found to have hyperlipidemia. LDL elevated at 146. Recommend to start Lipitor 10 mg daily. Recommend to recheck fasting lipid panel in 4 to 6 weeks to monitor her progress. Lifestyle modification education provided. Patient left shoulder pain. Xray shows some arthritis. Recommend Ibuprofen 400 mg up to three times a day as needed for pain. Recommend Orthopedic evaluation to further evaluate as the patient may require further intervention. Diet: AHA Activity: Ad kyara Followup: NONE,NONE [Primary Care Provider] - Time spent managing pt's care (in minutes): 55
--- NOTE | 2020-08-04 08:12 | EKG ---
Test Date: 2020-08-03 Test Time: 10:51:23 In Flight [employer]: YAIR MEASUREMENT RESULTS: Intervals: Rate: 63 NM: 218 QRSD: 82 QT: 398 QTc: 407 [place]: P: 72 NM: 218 QRS: -2 T: 54 INTERPRETIVE STATEMENTS: Sinus rhythm with 1st degree AV block Septal infarct, age undetermined Abnormal ECG Compared to ECG 04/03/2020 18:00:18 Incomplete right bundle-branch block no longer present Myocardial infarct finding still present Electronically Signed On 08-04-20 08:09:44 CDT by Jacinto Zamora
[2020-08-04 08:50] VITALS: BP 133/66; TEMP 97.4
[2020-08-04] MEDS ORDERED: POTASSIUM CL SA 10 MEQ TAB PO ONE (09:00)
[2020-08-04] MEDS ORDERED: PROPRANOLOL HCL 10 MG TAB PO SCH (09:00)
[2020-08-04] MEDS ORDERED: FOLIC ACID 1 MG TABLET PO SCH (09:00)
[2020-08-04] MEDS ORDERED: THIAMINE HCL 100 MG TABLET PO SCH (09:00)
[2020-08-04] MEDS ORDERED: ASPIRIN EC 81 MG TAB PO SCH (09:00)
[2020-08-04] MEDS: carBAMazepine 200 MG TAB PO SCH (09:41)
[2020-08-04] MEDS: AMLODIPINE 5 MG TAB PO SCH (09:41)
[2020-08-04] MEDS: ENOXAPARIN 40 MG/0.4 ML SQ SCH (09:41)
[2020-08-04] MEDS: FAMOTIDINE 20 MG TAB PO SCH (09:41)
--- NOTE | 2020-08-04 10:40 | RAD REPORT ---
EXAM DESCRIPTION: RAD - C Spine W Obliques - 08/04/2020 9:04 am CLINICAL HISTORY: Numbness FINDINGS: Mild posterior subluxation C5 on C6. Moderate spondylosis of consistent disc space narrowi ng and osteophytes at this level. The oblique views demonstrate bony encroachment upon the neural for ebonie. Mild spondylosis involves the remainder of the cervical spine No fracture or dislocation
--- NOTE | 2020-08-04 10:46 | RAD REPORT ---
EXAM DESCRIPTION: RAD - Shoulder Left 2 View - 08/04/2020 9:04 am CLINICAL HISTORY: Left shoulder pain FINDINGS: No fracture or dislocation is seen. Mild to moderate osteoarthritis involves the AC joint consisting of small osteophytes and joint space narrowing. Bones appear osteoporotic
[2020-08-04 13:00] VITALS: O2SAT 96
--- NOTE | 2020-08-05 16:29 | CON ---
Date of Consultation: 08/04/2020 Admitted on 08/03/2020, to Dr. Klein' service for chest pain and hypertension. I saw the patient on 08/04/2020. History Of Present Illness: Ms. Rodriguez is a 54-year-old woman with history of migraine headache, hy pertension, for which she takes propranolol and Topamax as well as Tegretol. No previous cardiac his tory. Came in with atypical chest pain, sharp, stabbing. No nausea, vomiting, diaphoresis, PND, ort hopnea, pedal edema, palpitations, or syncope. By the time we saw her, she was already ruled out for an WA, and she was pain free. She had a normal chest x-ray, normal EKG, normal troponin, normal BNP . Past Medical History: As stated above. Allergies: SHE IS ALLERGIC TO HYDROCODONE, TYLENOL, AND DEMEROL. Review of Systems: Negative. Social History: Negative for tobacco or drug use. Family History: Negative for heart disease. Medications: At home include Tegretol, propranolol, and Topamax. Physical Examination: Vital Signs: Stable. She was afebrile. HEENT: Negative. Neck: Supple. No bruit, lymphadenopathy, JVD, or thyromegaly. Chest: Clear to auscultation and percussion. Cardiac: Revealed a regular rhythm and rate. No murmurs, gallops, or rubs. Abdomen: Benign. Revealed no clubbing, cyanosis, or edema. Diagnostic Data: Normal. Impression And Plan: Atypical chest pain. The patient has a history of hypertension and migraine he adache. I am comfortable with her going home, and she should have an outpatient MPI at her convenien . Continue present regimen otherwise. ROMI/MODL Voice ID: [id number] Report ID: [id number]
--- NOTE | 2020-08-07 09:15 | ECHO ---
HEIGHT: 5 ft 7 in WEIGHT: 160 lb 0 oz DATE OF STUDY: 08/04/[address]: Bony Klein DO 2-DIMENSIONAL: YES M.MODE: YES DOPPLER: YES COLOR FLOW: YES TDS: NO PORTABLE: NO DEFINITY: NO BUBBLE STUDY: NO DIAGNOSIS: HYPERTENSION, CHEST PAIN CARDIAC HISTORY: CATHERIZATION: NO SURGERY: NO PROSTHETIC VALVE: NO PACEMAKER: NO MEASUREMENTS (cm) DIASTOLIC (NORMALS) SYSTOLIC (NORMALS) IVSd 1.0 (0.6-1.2) LA Diam 3.0 (1.9-4.0) LVEF 69% LVIDd 4.1 (3.5-5.7) LVIDs 2.5 (2.0-3.5) %FS 38% LVPWd 0.9 (0.6-1.2) Ao Diam 2.5 (2.0-3.7) 2 DIMENSIONAL ASSESSMENT: RIGHT ATRIUM: NORMAL LEFT ATRIUM: NORMAL RIGHT VENTRICLE: NORMAL LEFT VENTRICLE: NORMAL TRICUSPID VALVE: NORMAL MITRAL VALVE: NORMAL PULMONIC VALVE: NORMAL AORTIC VALVE: NORMAL PERICARDIAL EFFUSION: NONE AORTIC ROOT: NORMAL LEFT VENTRICULAR WALL MOTION: NORMAL DOPPLER/COLOR FLOW: NORMAL COMMENTS: NORMAL 2D ECHOCARDIOGRAM WITH DOPPLER. NO WALL MOTION ABNORMALITY. NO EFFUSION. TECHNOLOGIST: Gabino BARROS
== END 2020-08-04 13:46 | disposition home or self-care (01) | DRG 313 ==
LOC: ER 10:08 → ERHOLD 13:24 → 2ND 14:49 → OBSVTOIN 08-04 07:35
PROVIDERS: ADMIT Family Medicine; ATTEND Family Medicine
DX: R07.9 Chest pain, unspecified (principal); I10 Essential (primary) hypertension; G43.909 Migraine, unspecified, not intractable, without status migrainosus; E78.5 Hyperlipidemia, unspecified; M19.012 Primary osteoarthritis, left shoulder
CPT/HCPCS: 36415; 70450; 71045; 72050; 80048; 80061; 80156; 81001; 81003; 82550; 82553; 83735; 83880; 84439; 84443; 84484; 85025; 85610; 85730; 87086; 87088; 93005; 93306; 99285; G0378; J1650; J2405; J7030

== ENCOUNTER 2021-01-14 12:40 | Emergency (ER) | payer SELFPAY ==
--- OUTSIDE RECORDS SUMMARY | 2021-01-14 12:42 | XMS REPORT | Continuity of Care Document ---
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 Other Other Disease Active Univers chronic chronic 08-12 ity of pelvic pelvic 00:00: [place] peritoniti peritoniti 00 Me dical s, female s, female Bran ch Other and Other and Disease Active Overview: Univers unspecifie unspecifie 08-05 Right [place] d ovarian d ovarian 00[place] cyst cyst 00 [place] Branch Allergies, Adverse Reactions, Alerts Allergy Allergy Status Severity Reaction(s) Onset Inactive Treating Comm ents Source Name Type Date Date Clinician Acetamin Propensi Active Other - See Passes U nivers ophen ty to comments 07-19 out ity of adverse 00:00: [place] reaction 00 Medical s Branch ACETAMIN DRUG Active Other-Cmnt Univ ers OPHEN INGREDI 07-19 ity of 00:00: [place] 00 Medical Branch LORATADI DRUG Active Unknown-Cmnt Un zoey NE INGREDI 08-09 ity of 00:00: [place] 00 Medical Branch Loratadi Propensi Active Unknown - Laryngeal Univers ne ty to See comments 08-09 swelling it y of adverse 00:00: [place] reaction 00 Medical s Branch Codeine Propensi Active Anaphylaxis Un zoey ty to 09-04 ity of adverse 00:00: [place] reaction 00 Medical s Branch Propoxyp Propensi Active Hives Univer s hene ty to 09-04 ity of N-Acetam adverse 00:00: [place] inophen reaction 00 Medical s Branch CODEINE DRUG Active Anaphylaxis Univ ers INGREDI 09-04 ity of 00:00: [place] 00 Medical Branch PROPOXYP DRUG Active Hives 2006-0 Univers HENE 09-04 ity of N-ACETAM 00:00: [place] INOPHEN 00 Medical Branch MEPERIDI DRUG Active Hives Univers NE HCL INGREDI 09-04 ity of 00:00: [place] 00 Medical Branch HYDROCOD DRUG Active Hives Univers ONE-ACET 09-04 ity of AMINOPHE 00:00: [place] N 00 Medical Branch Meperidi Propensi Active Hives Univer s ne Hcl ty to 09-04 ity of adverse 00:00: [place] reaction 00 Medical s Branch Hydrocod Propensi Active Hives 2006-0 Univer s one-Acet ty to 09-04 ity of aminophe adverse 00:00: [place] n reaction 00 [facility] Social History Social Habit Start Date Stop Date Quantity Comments Source Sex Assigned At Uni versity [facility] Smoking Status Start Date Stop Date Source Unknown if ever smoked Universit y [facility] Medications Ordered Filled Start Stop Current Ordering Indication Dosage Frequency Signature Comments Components Source Medication Medication Date Date Medication? Clinician (SIG) Name Name traMADol 2019-0 2020- No 50mg 50 mg, Univer s (ULTRAM) 02-25 Oral, ity of tablet 50 23:15: 23:26 ONCE, 1 [place] mg 00 :00 dose, [facility] Medical 02/25/19 at [facility] 1715, Routine SUMAtriptan 2017-02 Yes 50mg Take 1 Univ ers (IMITREX) 0-03 tablet by ity o f 50 mg 00:00: mouth as [place] tablet 00 needed for Medical Migraine. [facility] IBUPROFEN 2018-0 Yes None Univers 600 MG ORAL 6- Entered ity o f TAB 14:41: [place] 25 Medical Branch ketorolac Yes 10mg Take 1 Univer s 10 mg - tablet by ity of tablet 00:00: mouth [place] 00 every 6 Medical (six) Branch hours as needed for Pain (scale 7-10). ULTRAM ER Yes None Univers 200 MG ORAL 7- Entered ity o f TB24 14:35: [place] 37 [facility] Branch FERROUS Yes 3 tabs Univers SULFATE 250 7-04 daily ity of MG ORAL 14:35: [place] CPSR 37 [facility] DOCUSATE Yes 1 Cap Oral Uni vers CALCIUM 240 7- BID ity of MG ORAL CAP 00:00: [place] 00 Medical Branch TRAMADOL 50 Yes 1 Tab Oral Univers MG ORAL TAB 7-04 Q6HPRN ity of 00:00: [place] 00 Medical Branch CLIMARA Yes one patch Unive rs 0.06 MG/24 08-13 applied to ity of HR 00:00: clean skin [place] TRANSDERMAL 00 surface Medic al PTWK area Branch weekly CEPHALEXIN Yes one tab po U nivers 500 MG ORAL - bid ity of CAP 00:00: [place] 00 Medical [facility] Vital Signs Vital Name Observation Time Observation Value Comments Source Systolic blood 2019-02-25 23:00:00 154 mm[Hg] [facility] Diastolic blood 2019-02-25 23:00:00 95 mm[Hg] [facility] Heart rate 2019-02-25 23:00:00 61 /min [facility] Respiratory rate 2019-02-25 23:00:00 18 /min [facility] Oxygen saturation in 2019-02-25 23:00:00 100 /min [facility] Arterial blood by [facility] Pulse oximetry Branch Body temperature 2019-02-25 21:31:00 36.78 Jerilyn [facility] Body weight 2019-02-25 21:31:00 65.772 kg [facility] BMI 2019-02-25 21:31:00 22.71 kg/m2 [facility] Systolic blood 2019-02-25 23:00:00 154 mm[facility]Hg[facility] Diastolic blood 2019-02-25 23:00:00 95 mm[Hg] Unive rsity of pressure [facility] Heart rate 2019-02-25 23:00:00 61 /min [facility] Respiratory rate 2019-02-25 23:00:00 18 /min [facility] Oxygen saturation in 2019-02-25 23:00:00 100 /min [facility] Arterial blood by [facility] Pulse oximetry Branch Body temperature 2019-02-25 21:31:00 36.78 Jerilyn [facility] weight 2019-02-25 21:31:00 65.772 kg [facility] BMI 2019-02-25 21:31:00 22.71 kg/m2 [facility] Procedures Procedure Date / Time Performed Performing Clinician Twin e CT CERVICAL SPINE WO 2019-02-25 22:58:44 Ray Stewart [facility] XR CHEST 2 VW 2019-02-25 22:41:55 Ray Stewart [place] [facility] XR SHOULDER 2+ VW 2019-02-25 22:41:55 Ray Stewart [facility] LEFT [facility] Encounters Start End Encounter Admission Attending Care Care Encounter Source Date/Time Date/Time Type Type Clinicians Facility Department ID 2019-02-25 2019-02-25 [id number] 15:32:56 17:51:00 Ray Burns [id number] [place] [id number] [place] [id number] 2019-02-25 2019-02-25 [facility] [id number] Univers 15:32:56 17:51:00 Ray Burns [id number] i ty of [place] [id number] [facility] [id number] [place] [id number] Branch 2019-02-25 2019-02-25 [facility] [id number] Univers 15:32:56 17:51:00 [facility] Results Test Test Test Results Result Source Description Time Comments Comments CT CERVICAL acute fracture of the University of SPINE WO 16 cervical spine. [facility] ical CONTRAST 23:28:36 Preliminary Report Branch Dictated by Resident: Mi Mccartney MD., have reviewed this study and agree with the abovereport.CT CERVICAL SPINE WO CONTRAST HISTORY: ?C-spine trauma, high clinical risk (NEXUS/CCR) COMPARISON: None. TECHNIQUE: Noncontrasted CT of the cervical spine was obtained with coronaland sagittal reformats. Mild reversal of the normal cervical lordosis. The vertebral bodies arenormal in height and in normal alignment. No acute facet fracture orsubluxation is present. The craniocervical junction is intact. Mild spondylotic changes at C4-C6 manifested by disc space narrowing,endplate sclerosis and posterior osteophytes. Left C5-C6 uncovertebralarthrosis results in mild to moderate left neural foraminal narrowing.Moderate left C2-C3 facet arthrosis. The prevertebral soft tissues are unremarkable The visualized cervical soft tissues and visualized lung apices areunremarkable. [facility], Radiant Results [facility] User - 02/25/2019 5:29 PM CSTCT CERVICAL SPINE WO CONTRASTHISTORY: C-spine trauma, high clinical risk (NEXUS/CCR) COMPARISON: None.TECHNIQUE: Noncontrasted CT of the cervical spine was obtained with coronaland sagittal reformats.Mild reversal of the normal cervical lordosis. The vertebral bodies arenormal in height and in normal alignment. No acute facet fracture orsubluxation is present. The craniocervical junction is intact. Mild spondylotic changes at C4-C6 manifested by disc space narrowing,endplate sclerosis and posterior osteophytes. Left C5-C6 uncovertebralarthrosis results in mild to moderate left neural foraminal narrowing.Moderate left C2-C3 facet arthrosis.The prevertebral soft tissues are unremarkableThe visualized cervical soft tissues and visualized lung apices areunremarkable.IMPRESSION No acute fracture of the cervical spine.Preliminary Report Dictated by Resident: Mi Martinez MD., have reviewed this study and agree with the abovereport. XR CHEST 2019-02- HISTORY: ?Chest pain. [facility] TECHNIQUE: PA and lateral [facility] 22:48:15 views of the chest are Br anch obtained. FINDINGS: No acute pneumonia detected. No pneumothorax or pleural effusionor pulmonary congestion. Cardiomediastinal silhouette appears normal.Incidental note made of cholecystectomy clips in the upper abdomen,visualized in the lateral view. CONCLUSIONS: No signs of acute cardiopulmonary disease. [facility], [facility] User - 02/25/2019 4:49 PM CSTHISTORY: Chest pain.TECHNIQUE: PA and lateral views of the chest are obtained.FINDINGS: No acute pneumonia detected. No pneumothorax or pleural effusionor pulmonary congestion. Cardiomediastinal silhouette appears normal.Incidental note made of cholecystectomy clips in the upper abdomen,visualized in the lateral view.CONCLUSIONS: No signs of acute cardiopulmonary disease. XR SHOULDER 2019-02- HISTORY: Trauma. FINDINGS: [facility] LEFT 16 2 frontal views of left T [facility] 22:47:28 shoulder obtained with the Branch arm ininternal and external rotation positions showed no acute fracture ordislocation. Mild glenohumeral joint degenerative arthritis and mild ACjoint degenerative arthrosis noted. No appreciable calcifications in therotator cuff tendons or aggressive bone lesions seen. CONCLUSIONS: No acute fracture or dislocation in left shoulder. [facility], [facility] User - 02/25/2019 4:48 PM CSTHISTORY: Trauma.FINDINGS: 2 frontal views of left shoulder obtained with the arm ininternal and external rotation positions showed no acute fracture ordislocation. Mild glenohumeral joint degenerative arthritis and mild ACjoint degenerative arthrosis noted. No appreciable calcifications in therotator cuff tendons or aggressive bone lesions seen.CONCLUSIONS: No acute fracture or dislocation in left shoulder.
[2021-01-14 14:04] LABS: SARS-COV-2 RT PCR NEGATIVE (NEGATIVE)
--- NOTE | 2021-01-14 14:42 | ER ---
Nurse's Notes [facility] Name: Jesenia Rodriguez Age: 55 yrs Sex: Female : 1965 Arrival Date: 01/14/2021 Time: 12:41 Bed 13 Private MD: Diagnosis: Radiculopathy, cervical region Presentation: 01/14 13:16 Chief complaint: Patient states: headache, fever, nausea and high blood pressure that ss began yesterday at work. Coronavirus screen: Client denies travel out of the [place] in the last 14 days. Ebola Screen: Patient denies exposure to infectious person. Patient denies travel to an Ebola-affected area in the 21 days before illness onset. Initial Sepsis Screen: Does the patient meet any 2 criteria? No. Patient's initial sepsis screen is negative. Does the patient have a suspected source of infection? No. Patient's initial sepsis screen is negative. Risk Assessment: Do you want to hurt yourself or someone else? Patient reports no desire to harm self or others. Onset of symptoms was January 13, 2021. 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 - Social history:: Smoking status: Patient denies any tobacco usage or history of. - Family history:: not pertinent. - Hospitalizations: : No recent hospitalization is reported. Screenin:30 Abuse screen: Denies threats or abuse. Nutritional screening: No deficits noted. jh6 Tuberculosis screening: No symptoms or risk factors identified. Fall Risk None identified. Assessment: 14:30 General: Appears in no apparent distress. distressed, Behavior is calm, cooperative. 6 14:30 Pain: Complains of pain in base of the skull and left side of head Pain currently is 7 jh6 out of 10 on a pain scale. Quality of pain is described as sharp, shooting, Pain began 2-3 days ago. Is continuous, Alleviated by rest, Aggravated by exercise, increased activity, weight bearing. Musculoskeletal: Reports pain in scalp. 15:06 Reassessment: spoke with pt and is going to send pt home with meds and a release to [facility] return to work.. pt does have an apt with pcp at the end of the month. Vital Signs: 13:18 BP 130 / 83; Pulse 70; Resp 16; Temp 98.3(TE); Pulse Ox 99% on R/A; Weight 72.57 kg; ss Height 5 ft. 7 in. (170.18 cm); Pain 8/10; 13:18 Body Mass Index 25.06 (72.57 kg, 170.18 cm) ED Course: 12:41 Patient arrived in ED. ds1 13:17 Triage completed. ss 13:18 Arm band placed on right wrist. 14:24 Malick Lei MD is Attending Physician. rn 14:30 Call light in reach. Side rails up X 1. [facility] 14:51 Adela Madrid, RN is Primary Nurse. [facility] Administered Medications: No medications were administered Outcome: 14:41 Discharge ordered by . rn 15:07 Patient left the ED. [facility] Signatures: Sammi Tubbs ds1 Malick Lei MD MD rn Smirch, Shelby, RN RN Adela Madrid RN RN [facility]
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
[2021-01-14 15:11] VITALS: BP 130/83; TEMP 98.3; O2SAT 99
== END 2021-01-14 15:07 | disposition home or self-care (01) ==
LOC: ER 12:40
DX: M54.12 Radiculopathy, cervical region (principal); I10 Essential (primary) hypertension; Z88.5 Allergy status to narcotic agent; Z88.6 Allergy status to analgesic agent; Z88.8 Allergy status to other drugs, medicaments and biological substances; Z91.018 Allergy to other foods; Z20.822 Contact with and (suspected) exposure to COVID-19
CPT/HCPCS: 0240U; 99281

== ENCOUNTER 2021-02-28 11:04 | Emergency (ER) | payer SELFPAY ==
--- OUTSIDE RECORDS SUMMARY | 2021-02-28 11:07 | XMS REPORT | Continuity of Care Document ---
:[address] [facility] t Address 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 Other Other Disease Active Univers [...] Medical s Branch Codeine Propensi Active Anaphylaxis 2006-0 Un zoey ty to 09-04 ity of adverse 00:00: [place] reaction 00 Medical s Branch Propoxyp Propensi Active Hives Univer s hene ty to 09-04 ity of N-Acetam adverse 00:00: [place] inophen reaction 00 Medical s Branch CODEINE DRUG Active Anaphylaxis 2006-0 Univ ers INGREDI 09-04 ity of 00:00: [place] 00 Medical Branch PROPOXYP DRUG Active Hives 2006- Univers HENE 09-04 ity of N-ACETAM 00:00: [place] INOPHEN 00 Medical Branch MEPERIDI DRUG Active Hives Univers NE HCL INGREDI 09-04 ity of 00:00: [place] 00 Medical Branch HYDROCOD DRUG Active Hives Univers ONE-ACET 09-04 ity of AMINOPHE 00:00: [place] N 00 Medical Branch Meperidi Propensi Active Hives 0 Univer s ne Hcl ty to 09-04 ity of adverse 00:00: [place] reaction 00 Medical s Branch Hydrocod Propensi Active Hives 0 Univer s one-Acet ty to 09-04 ity of aminophe adverse 00:00: [place] n reaction 00 Medical s Branch Social History Social Habit Start Date Stop Date Quantity Comments Source Sex Assigned At Uni [facility] Smoking Status Start Date Stop Date Source Unknown if ever smoked [facility] Medications Ordered Filled Start Stop Current Ordering Indication Dosage Frequency Signature Comments Components Source Medication Medication Date Date Medication? Clinician (SIG) Name Name traMADol 2019-0 2020- No 50mg 50 mg, Univer s (ULTRAM) -16 02-25 Oral, ity of tablet 50 23:15: 23:26 ONCE, 1 [place] mg 00 :00 dose, [facility] 02/25/19 at [place] 1715, Routine SUMAtriptan 2017-02 Yes 50mg Take 1 Univ ers (IMITREX) 0-03 tablet by ity o f 50 mg 00:00: mouth as [place] tablet 00 needed for Medical Migraine. [place] IBUPROFEN Yes None Univers 600 MG ORAL 07-19 Entered ity o f TAB 14:41: [place] 25 [facility] Branch ketorolac 0 Yes 10mg Take 1 Univer s 10 mg 07-19 tablet by ity of tablet 00:00: mouth [place] 00 every 6 Medical (six) Branch hours as needed for Pain (scale 7-10). ULTRAM ER Yes None Univers 200 MG ORAL 7-04 Entered ity o f TB24 14:35: [place] 37 Medical Branch FERROUS Yes 3 tabs Univers SULFATE 250 7- daily ity of MG ORAL 14:35: [facility] 37 [facility] DOCUSATE Yes 1 Cap Oral Uni vers CALCIUM 240 7- BID ity of MG ORAL CAP 00:00: [place] 00 Medical Branch TRAMADOL 50 Yes 1 Tab Oral Univers MG ORAL TAB 7- Q6HPRN ity of 00:00: [place] 00 Medical Branch CLIMARA Yes one patch Unive rs 0.06 MG/24 08-13 applied to ity of HR 00:00: clean skin [place] TRANSDERMAL 00 surface Medic al PTWK area Branch weekly CEPHALEXIN Yes one tab po U nivers 500 MG ORAL 08-13 bid ity of CAP 00:00: [address] Vital Signs Vital Name Observation Time Observation Value Comments Source Systolic blood 2019-02-25 23:00:00 154 mm[Hg] Univer sity [facility] [place] [facility] Diastolic blood 2019-02-25 23:00:00 95 mm[Hg] Unive [facility] Heart rate 2019-02-25 23:00:00 61 /min [facility] Respiratory rate 2019-02-25 23:00:00 18 /min [facility] Oxygen saturation in 2019-02-25 23:00:00 100 /min [facility] Arterial blood by [facility] Pulse oximetry Branch Body temperature 2019-02-25 21:31:00 36.78 Jerilyn [facility] Body weight 2019-02-25 21:31:00 65.772 kg [facility] BMI 2019-02-25 21:31:00 22.71 kg/m2 [facility] Systolic blood 2019-02-25 23:00:00 154 mm[Hg] Univer sity [facility] [place] [facility] Diastolic blood 2019-02-25 23:00:00 95 mm[Hg] [facility] rsity of pressure [facility] Heart rate 2019-02-25 23:00:00 61 /min [facility] Respiratory rate 2019-02-25 23:00:00 18 /min [facility] Oxygen saturation in 2019-02-25 23:00:00 100 /min [facility] Arterial blood by [facility] Pulse oximetry [place] Body temperature 2019-02-25 21:31:00 36.78 Jerilyn [facility] weight 2019-02-25 21:31:00 65.772 kg [facility] BMI 2019-02-25 21:31:00 22.71 kg/m2 [facility] Procedures Procedure Date / Time Performed Performing Clinician Sour e CT CERVICAL SPINE WO 2019-02-25 22:58:44 Ray Stewart [facility] XR CHEST 2 VW 2019-02-25 22:41:55 Ray Stewart Man o f [facility] XR SHOULDER 2+ VW 2019-02-25 22:41:55 Ray Stewart [facility] LEFT [facility] Encounters Start End Encounter Admission Attending Care Care Encounter Source Date/Time Date/Time Type Type Clinicians Facility Department ID 2019-02-25 2019-02-25 [id number] 15:32:56 17:51:00 Ray Burns [id number] [place] [id number] [place] [id number] [facility] 2019-02-25 2019-02-25 Emergency Pat [facility] [id number] [facility] [place] [facility] 15:32:56 17:51:00 Ray Burns [id number] i ty of [place] [id number] [facility] [id number] [place] [id number] Branch 2019-02-25 2019-02-25 Emergency X PAT [facility] ERT [id number] Univers 15:32:56 17:51:00 [facility] Results Test Test Test Results Result Source Description Time Comments Comments CT CERVICAL acute fracture of the University of SPINE WO 16 cervical spine. [place] Med ical CONTRAST 23:28:36 Preliminary Report Branch Dictated [...] the cervical spine.Preliminary Report Dictated by Resident: Sudeep Vance, Mi Badillo MD., have reviewed this study and agree with the abovereport. XR CHEST 2019-02- HISTORY: ?Chest pain. [place] [id number] TECHNIQUE: PA and lateral [facility] 22:48:15 views of the chest are Br anch obtained. FINDINGS: No acute pneumonia detected. No pneumothorax or pleural effusionor pulmonary congestion. Cardiomediastinal silhouette appears normal.Incidental note made of cholecystectomy clips in the upper abdomen,visualized in the lateral view. CONCLUSIONS: No signs of acute cardiopulmonary disease. [facility] - 02/25/2019 4:49 PM CSTHISTORY: Chest pain.TECHNIQUE: PA and lateral views of the chest are obtained.FINDINGS: No acute pneumonia detected. No pneumothorax or pleural effusionor pulmonary congestion. Cardiomediastinal silhouette appears normal.Incidental note made of cholecystectomy clips in the upper abdomen,visualized in the lateral view.CONCLUSIONS: No signs of acute cardiopulmonary disease. XR SHOULDER 2019-02- HISTORY: Trauma. FINDINGS: [facility] [place] [place] LEFT 16 2 frontal views of left [facility] 22:47:28 shoulder obtained with the Branch arm ininternal and external rotation positions showed no acute fracture ordislocation. Mild glenohumeral joint degenerative arthritis and mild ACjoint degenerative arthrosis noted. No appreciable calcifications in therotator cuff tendons or aggressive bone lesions seen. CONCLUSIONS: No acute fracture or dislocation in left shoulder. [facility], [facility] Results [facility] User - 02/25/2019 4:48 PM CSTHISTORY: [...]
[2021-02-28] MEDS ORDERED: BENZONATATE 100 MG CAP PO ONE (12:22)
[2021-02-28] MEDS ORDERED: LIDOCAINE VISCOUS 2% SOLN 15 ML UDC ONE (12:23)
--- NOTE | 2021-02-28 13:46 | ER ---
Nurse's Notes [facility] [place] [facility] Name: Jesenia Rodriguez Age: 55 yrs Sex: Female : 1965 Arrival Date: 02/28/2021 Time: 11:07 Bed 30 Private MD: Diagnosis: Acute tonsillitis, unspecified Presentation: 02/28 11:11 Chief complaint: Patient states: "I have a sore throat and I don't know if it my throat jd3 or my tonsils. I had a COVID test this am, but they said it will take 3 days.". Coronavirus screen: At this time, the client does not indicate any symptoms associated with coronavirus-19. Ebola Screen: No symptoms or risks identified at this time. Initial Sepsis Screen: Does the patient meet any 2 criteria? No. Patient's initial sepsis screen is negative. Does the patient have a suspected source of infection? No. Patient's initial sepsis screen is negative. Risk Assessment: Do you want to hurt yourself or someone else? Patient reports no desire to harm self or others. Onset of symptoms was February 28, 2021. 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 - Social history:: Smoking status: Patient denies any tobacco usage or history of. Screenin:22 Abuse screen: Denies threats or abuse. Denies injuries from another. Nutritional mk screening: No deficits noted. Tuberculosis screening: No symptoms or risk factors identified. Fall Risk None identified. Assessment: 11:21 General: Appears in no apparent distress. comfortable, Behavior is calm, cooperative, mk appropriate for age. Pain: Complains of pain in neck Pain currently is 7 out of 10 on a pain scale. Neuro: No deficits noted. 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 Gait is steady, Speech is normal, Facial symmetry appears normal. Cardiovascular: No deficits noted. Denies chest pain, shortness of breath, Heart tones S1 S2 present Patient's skin is warm and dry. Respiratory: Airway is patent Respiratory effort is even, unlabored, Breath sounds are clear bilaterally. Denies cough, shortness of breath. GI: No deficits noted. No signs and/or symptoms were reported involving the gastrointestinal system. Abdomen is round non-distended, Bowel sounds present X 4 quads. : No deficits noted. No signs and/or symptoms were reported regarding the genitourinary system. EENT: Throat is reddened has patchy exudate. Derm: No deficits noted. No signs and/or symptoms reported regarding the dermatologic system. Musculoskeletal: No deficits noted. No signs and/or symptoms reported regarding the musculoskeletal system. Vital Signs: 11:12 BP 126 / 88; Pulse 75; Resp 17 S; Temp 97.4(TE); Pulse Ox 97% on R/A; Weight 72.57 kg jd3 (R); Height 5 ft. 7 in. (170.18 cm) (R); Pain 10/10; 14:03 BP 131 / 70; Pulse 83; Resp 16; Pulse Ox 99% on R/A; ab2 11:12 Body Mass Index 25.06 (72.57 kg, 170.18 cm) [facility] ED Course: 11:07 Patient arrived in ED. mr 11:12 Triage completed. jd3 11:13 Arm band placed on. jd3 11:15 Freddy Dumont PA is PHCP. cp 11:15 Ray Ruff MD is Attending Physician. cp 11:21 Leila Norton, LUIGI is Primary Nurse. 11:23 Patient has correct armband on for positive identification. Bed in low position. Call mk light in reach. Side rails up X2. 11:23 No provider procedures requiring assistance completed. mk 12:18 Strep Sent. 14:03 Patient did not have IV access during this emergency room visit. ab2 Administered Medications: 12:25 Drug: Viscous Lidocaine Liquid (4 %) 5 ml Route: Mucous Membrane; mk 12:25 Drug: Tessalon Perle (benzonatate) 200 mg Route: PO; mk Outcome: 13:46 Discharge ordered by . jayjay 14:04 Discharged to home ab2 14:04 Condition: good 14:04 Discharge instructions given to patient, Instructed on discharge instructions, follow up and referral plans. medication usage, Demonstrated understanding of instructions, follow-up care, medications, Prescriptions given X 3. 14:04 Patient left the ED. ab2 Signatures: Komal Keller, Freddy, Nadir Dodson cp, RN RN Leila Blount RN RN Yuan Richmond ab2
--- NOTE | 2021-02-28 13:47 | EDPHYS ---
Physician Documentation [facility] Name: Jesenia Rodriguez Age: 55 yrs Sex: Female : 1965 Arrival Date: 02/28/2021 Time: 11:07 Bed 30 Private MD: ED Physician Ray Ruff HPI: 02/28 11:26 This 55 yrs old Black Female presents to ER via Ambulatory with complaints of Sore cp Throat. 11:26 Onset: The symptoms/episode began/occurred 2 day(s) ago. cp 11:26 The patient describes throat pain as constant. cp 11:26 Associated signs and symptoms: Pertinent positives: cough, dysphagia, Pertinent cp negatives chills, earache, fever, headache, shortness of breath, vomiting. Patient reports she was tested for COVID-19 this morning at family physician office. Not tested for strep. 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 - Social history:: Smoking status: Patient denies any tobacco usage or history of. ROS: 11:30 Constitutional: Negative for body aches, chills, fever, poor PO intake. cp 11:30 Eyes: Negative for injury, pain, redness, and discharge. cp 11:30 ENT: Positive for difficulty swallowing, sore throat, Negative for drainage from ear(s), ear pain, sinus pain, difficulty handling secretions. 11:30 Cardiovascular: Negative for chest pain. 11:30 Respiratory: Positive for cough, "sounds productive", Negative for shortness of breath, wheezing. 11:30 Abdomen/GI: Negative for abdominal pain, nausea, vomiting, and diarrhea. 11:30 Neuro: Negative for altered mental status, headache, weakness. 11:30 All other systems are negative. Exam: 11:35 Constitutional: The patient appears in no acute distress, alert, awake, non-toxic, well cp developed, well nourished. 11:35 Head/Face: Normocephalic, atraumatic. cp 11:35 Eyes: Periorbital structures: appear normal, Conjunctiva: normal, no exudate, no injection, Lids and lashes: appear normal, bilaterally. 11:35 ENT: External ear(s): are unremarkable, Ear canal(s): are normal, clear, TM's: dullness, bilaterally, Nose: is normal, Mouth: Lips: moist, Oral mucosa: moist, Posterior pharynx: Airway: no evidence of obstruction, patent, Tonsils: bilaterally enlarged, with erythema, no exudate, Uvula: midline, erythema, that is moderate, exudate, is not appreciated. 11:35 Neck: ROM/movement: is normal, is supple, no range of motions limitations, no meningismus, no nuchal rigidity, Lymph nodes: lymphadenopathy is appreciated, anterior cervical nodes. 11:35 Chest/axilla: Inspection: normal. 11:35 Cardiovascular: Rate: normal. 11:35 Respiratory: the patient does not display signs of respiratory distress, Respirations: normal, no use of accessory muscles, no retractions, labored breathing, is not present. 11:35 Abdomen/GI: Exam negative for discomfort, distension, guarding, Inspection: abdomen appears normal. Vital Signs: 11:12 BP 126 / 88; Pulse 75; Resp 17 S; Temp 97.4(TE); Pulse Ox 97% on R/A; Weight 72.57 kg jd3 (R); Height 5 ft. 7 in. (170.18 cm) (R); Pain 10/10; 14:03 BP 131 / 70; Pulse 83; Resp 16; Pulse Ox 99% on R/A; ab2 11:12 Body Mass Index 25.06 (72.57 kg, 170.18 cm) jd3 MDM: 11:21 Patient medically screened. cp 12:00 Differential diagnosis: epiglottitis, group A strep tonsillitis, mononucleosis, cp pharyngitis, retropharyngeal abcess tonsillitis, upper respiratory infection, uvulitis, COVID-19. 13:45 Data reviewed: vital signs, nurses notes, lab test result(s). cp 13:45 Counseling: I had a detailed discussion with the patient and/or guardian regarding: the cp historical points, exam findings, and any diagnostic results supporting the discharge/admit diagnosis, lab results, to return to the emergency department if symptoms worsen or persist or if there are any questions or concerns that arise at home. ED course: VSS. Will treat for tonsillitis with oral antibiotics. Recommend quarantine while awaiting results of COVID-19 test. Return to ED worsening symptoms. 02/28 11:26 Order name: Strep cp 02/28 13:15 Order name: Throat Culture EDMS Administered Medications: 12:25 Drug: Viscous Lidocaine Liquid (4 %) 5 ml Route: Mucous Membrane; mk 12:25 Drug: Tessalon Perle (benzonatate) 200 mg Route: PO; mk Disposition: 17:28 Co-signature as Attending Physician, Ray Ruff MD I agree with the assessment and kdr plan of care. Disposition Summary: 02/28/21 13:46 Discharge Ordered Location: Home cp Problem: new cp Symptoms: are unchanged cp Condition: Stable cp Diagnosis - Acute tonsillitis, unspecified cp Followup: cp - With: Private Physician - When: 2 - 3 days - Reason: Worsening of condition Discharge Instructions: - Discharge Summary Sheet cp - Tonsillitis cp Forms: - Medication Reconciliation Form cp - Thank You Letter cp - Antibiotic Education cp - Prescription Opioid Use cp Prescriptions: - Lidocaine Viscous - take 5 milliliter by ORAL route every 4-6 hours As needed; 1 bottle; Refills: cp 0, Product Selection Permitted - Augmentin 875-125 mg Oral Tablet - take 1 tablet by ORAL route every 12 hours for 10 days; 20 tablet; Refills: 0, cp Product Selection Permitted - Ibuprofen 800 mg Oral Tablet - take 1 tablet by ORAL route every 8 hours As needed take with food; 30 tablet; cp Refills: 0, Product Selection Permitted Signatures: Dispatcher [employer] EDMS Ray Ruff MD MD kdr Page, Corey, PA PA cp Nadir Engel RN RN Leila Blount RN RN mk
[2021-02-28 14:09] VITALS: TEMP 97.4
[2021-02-28 14:10] VITALS: BP 131/70; O2SAT 99
== END 2021-02-28 14:04 | disposition home or self-care (01) ==
LOC: ER 11:04
DX: J03.90 Acute tonsillitis, unspecified (principal); I10 Essential (primary) hypertension; Z88.5 Allergy status to narcotic agent; Z88.6 Allergy status to analgesic agent; Z88.8 Allergy status to other drugs, medicaments and biological substances; Z91.018 Allergy to other foods
CPT/HCPCS: 87070; 87081; 99283

== ENCOUNTER 2021-04-08 12:23 | Emergency (ER) | payer SELFPAY ==
--- OUTSIDE RECORDS SUMMARY | 2021-04-08 12:27 | XMS REPORT | Continuity of Care Document ---
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 Clinician (SIG) Name Name traMADol 0 2020- No 50mg 50 mg, Univer s (ULTRAM) -16 02-25 Oral, ity of tablet 50 23:15: 23:26 ONCE, 1 [place] :00 dose, [facility] 02/25/19 at [place] 1715, Routine SUMAtriptan 2017-02 Yes 50mg Take 1 Univ ers (IMITREX) 0-03 tablet by ity o f 50 mg 00:00: mouth as [place] tablet 00 needed for Medical Migraine. [place] IBUPROFEN Yes None Univers 600 MG ORAL 6-09 Entered ity o f TAB 14:41: [place] 25 [facility] Branch ketorolac 0 Yes 10mg Take 1 Univer s 10 mg 6- tablet by ity of tablet 00:00: mouth [place] 00 every 6 Medical (six) Branch hours as needed for Pain (scale 7-10). ULTRAM ER Yes None Univers 200 MG ORAL 7-04 Entered ity o f TB24 14:35: [place] 37 [facility] Branch FERROUS Yes 3 tabs Univers SULFATE 250 7- daily ity of MG ORAL 14:35: [facility] 37 [facility] DOCUSATE Yes 1 Cap Oral Uni vers CALCIUM 240 7- BID ity of MG ORAL CAP 00:00: [place] 00 Medical Branch TRAMADOL 50 Yes 1 Tab Oral Univers MG ORAL TAB 7- Q6HPRN ity of 00:00: [place] 00 Medical Branch CLIMARA Yes one patch Unive rs 0.06 MG/24 08-13 applied to ity of HR 00:00: clean skin [place] TRANSDERMAL 00 surface Medic al [facility] area Branch weekly CEPHALEXIN Yes one tab po U nivers 500 MG ORAL 08-13 bid ity of CAP 00:00: [address] Vital Signs Vital Name Observation Time Observation Value Comments Source Systolic blood 2019-02-25 23:00:00 154 [facility]Hg[facility] 2019-02-25 23:00:00 95 [facility]Hg[facility] Heart rate 2019-02-25 23:00:00 61 /min [facility] Respiratory rate 2019-02-25 23:00:00 18 /min [facility] Oxygen saturation in 2019-02-25 23:00:00 100 /min [facility] Arterial blood by [facility] Pulse oximetry Branch Body temperature 2019-02-25 21:31:00 36.78 Jerilyn [facility] Body weight 2019-02-25 21:31:00 65.772 kg [facility] BMI 2019-02-25 21:31:00 22.71 kg/m2 [facility] Systolic blood 2019-02-25 23:00:00 154 mm[Hg] Univer sity [facility] [place] [facility] Diastolic blood 2019-02-25 23:00:00 95 mm[Hg] [facility] of pressure [facility] Heart rate 2019-02-25 23:00:00 61 /min [facility] Respiratory rate 2019-02-25 23:00:00 18 /min [facility] Oxygen saturation in 2019-02-25 23:00:00 100 /min [facility] Arterial blood by [facility] Pulse oximetry [place] Body temperature 2019-02-25 21:31:00 36.78 Jerilyn [facility] weight 2019-02-25 21:31:00 65.772 kg [facility] BMI 2019-02-25 21:31:00 22.71 kg/m2 [facility] Procedures Procedure Date / Time Performed Performing Clinician Twin e CT CERVICAL SPINE WO 2019-02-25 22:58:44 Ray Stewart [facility] XR CHEST 2 VW 2019-02-25 22:41:55 Ray Stewart [place] o f [facility] XR SHOULDER 2+ VW 2019-02-25 22:41:55 Ray Stewart [facility] LEFT [facility] Encounters Start End Encounter Admission Attending Care Care Encounter Source Date/Time Date/Time Type Type Clinicians Facility Department ID 2019-02-25 2019-02-25 Emergency Clara [facility] [id number] Univers 15:32:56 17:51:00 Ray Burns [id number] i ty of [place] [id number] [facility] [id number] [facility] 084 Branch 2019-02-25 2019-02-25 Emergency X CLARA AKVISHAL ERT [id number] Univers 15:32:56 17:51:[address] [facility] 2019-02-25 2019-02-25 Emergency Clara [facility] [id number] 15:32:56 17:51:00 Ray Burns [id number] [place] [id number] Louann [id number] Results Test Description Test Time Test Comments Results Result Sourphoebe e Comments SCR MAMM 2021-04-06 BILATERAL AUGUSTINA 12:54:52 CAD DIGITAL Name: Jesenia : 1965 Sex: F - SCR MAMM BILATERAL AUGUSTINA CAD DIGITALBILATERAL DIGITAL SCREENING MAMMOGRAM 3D/2D WITH CAD: 03/22/2021LINICAL: Asymptomatic. Digital breast tomosynthesis was performed in addition to routine CC and MLO views. Current mammographic images were evaluated by Ecorithm ImageBreadcrumbtracking CAD (computer-aided detection) software. No prior exams were available for comparison. There are scattered fibroglandular tissues in both breasts. No suspicious mass, architectural distortion, malignant type calcification, or lymph node abnormality detected. IMPRESSION: NEGATIVEThere is no mammographic evidence of malignancy. Resume annual screening mammography in one year. Bethel Wheeler M.D. et/penrad:04/06/2021 12:54:52 Reproduction Machine Loader: Wendi Leija MM, [facility] Mammographyletter sent: BIRADS 1-2 Normal Mammogram BI-RADS: 1 Negative SARS-CoV-2 (COVID-19), RT-PCR/TMA 2021-03-01 15:38:51 Test Item Value Reference Range Interpretation Comme nts SARS-CoV-2 INTERPRETATION POSITIVE SEE NOTE A S ARS-CoV-2 RNA DETECTEDPositive (test code = 50312) results are indicative of the presence of ALL S-CoV-2 RNA;clinical co rrelation with patient history and other diagnosticinfor mation is necessary to de termine patient infection statu s.Positive results do not rule out bacterial infection or co -infectionwith other viruses. Positive and negative predic tive values oftesting are h ighly dependent on prevalence. SOURCE (test code = 09659) NASOPHARYNGEAL Note: Methodology is Cornel Oma Real-Time RT-PC R. The expected result or ref erence range is NEGATIVE (Not D etected). For more information reg arding COVID-19 testing to incl ude clinicalinforma tion, methodology detail, intende d use, FDA authorization a ndrecommended fact sheets for gi ents or healthcare providers, see [facility] Announcement: S ARS-CoV-2 (COVID-19) by Davi CANALES at URL below (note,fact shee ts are provided by method given in report:https:// [email or web address]/cl [email or web address]/client -communications/ Alternatively, see downloadable PDF fact sheet at:[email or web address]/[email or web address]- 19-RT-PCR UNLESS OTHERWISE INDICATED, ALL TESTING PERFORMED ATCLINICAL PATH OLOGY FORMERLY [facility], [facility] [address] [place] [address] 4 LABORATORY DIRE CTOR: DELORES JIMENEZ M.D. CLIA NUMBER [id number] [place]. [id number] CT CERVICAL SPINE WO [id number] 23:28:36 No acute fracture of the cervical spine. Preliminary Report Dictated by Resident: Sudeep Hays I, Mi Badillo MD., have reviewed this study and agree with the abovereport.CT CERVICAL SPINE WO CONTRAST HISTORY: ?C-spine trauma, high clinical risk (NEXUS/CCR) COMPARISON: None. TECHNIQUE:Noncontrasted CT of the cervical spine was obtained with coronaland sagittal reformats. Mild reversal of the normal cervical lordosis. The vertebral bodies arenormal in height and in normal alignment. No acute facet fracture orsubluxation is present. The craniocervical junction is intact. Mild spondylotic changes at C4-C6 manifested by disc space narrowing,endplate sclerosis and posterior osteophytes. Left C5- C6 uncovertebralarthrosis results in mild to moderate left neural foraminal narrowing.Moderate left C2-C3 facet arthrosis. The prevertebral soft tissues are unremarkable The visualized cervical soft tissues and visualized lung apices areunremarkable. [facility], Radiant Results Inft User - 02/25/2019 5:29 PM CSTCT CERVICAL SPINE WO CONTRASTHISTORY: C-spine trauma, high clinical risk (NEXUS/CCR)COMPARISON: None.TECHNIQUE: Noncontrasted CT of the cervical spine [...] cervical soft tissues and visualized lung apices areunremarkable.IMPRESSIONNo acutefracture of the cervical spine.Preliminary Report Dictated by Resident: Sudeep Vance, Mi Badillo MD., have reviewed this study and agree with the abovereport.[facility] 2 [id number] 22:48:15HISTORY: ?Chest pain. TECHNIQUE: PA and lateral views of the chest are obtained. FINDINGS: No acute pneumonia detected. No pneumothorax or pleural effusionor pulmonary congestion. Cardiomediastinal silhouette appears normal.Incidental note made of cholecystectomy clips in the upper abdomen,visualized in the lateral view. CONCLUSIONS: No signs of acute cardiopulmonary disease. [facility], Radiant Results Inft User - 02/25/2019 4:49 PM CSTHISTORY: Chest pain.TECHNIQUE: PA and lateral views of the chest are obtained.FINDINGS: No acute pneumonia detected. No pneumothorax or pleural effusionor pulmonary congestion. Cardiomediastinal silhouette appears normal.Incidental note made of cholecystectomy clips in the upper abdomen,visualized in the lateral view.CONCLUSIONS: No signs of acute cardiopulmonary disease.[facility] SHOULDER 2+ VW LEFT 2019-02-25 22:47:28HISTORY: Trauma. FINDINGS: 2 frontal views of left shoulder obtained with the arm ininternal and external rotation positions showed no acute fracture ordislocation. Mild glenohumeral joint degenerativearthritis and mild ACjoint degenerative arthrosis noted. No appreciable calcifications in therotatorcuff tendons or aggressive bone lesions seen. CONCLUSIONS: No acute fracture or dislocation in left shoulder. [facility], Radiant Results [facility] User - 02/25/2019 4:48 PM CSTHISTORY: Trauma.FINDINGS: 2 frontal views of left shoulder obtained with the arm ininternal and external rotation positions showed no acute fracture ordislocation. Mild glenohumeral joint degenerative arthritis and mild ACjoint degenerative arthrosis noted. No appreciable calcifications in therotator cuff tendons or aggressive bone lesions seen.CONCLUSIONS: No acute fracture or dislocation in left shoulder.[facility]
[2021-04-08] MEDS ORDERED: TRAMADOL HCL 50 MG TAB ONE (13:01)
--- NOTE | 2021-04-08 13:43 | RAD REPORT ---
EXAM DESCRIPTION: CT - C Spine Wo Con - 04/08/2021 1:31 pm CLINICAL HISTORY: right radicular pain COMPARISON: Neck Angio dated 04/03/[address] Scan was obtained of the cervical spine without contrast. Reformats were provided in th e sagittal and coronal plane. FINDINGS: No acute fracture of the cervical spine. No traumatic malalignment. No prevertebral edema. Multilevel cervical spondylosis is noted. Varying degrees of neural foraminal narrowing noted. On th e left, this is most advanced at C3-4 and C5-6 were there is moderate to severe neural foraminal narr owing. On the right, this is most advanced at C4-5 and C5-6 where the changes are at least moderate. Mild central spinal stenosis is noted at C4-5 and C5-6. No suspicious thyroid nodules or lymphadenopa thy. The lung apices are clear. IMPRESSION: No fracture or traumatic malalignment of the cervical spine. Cervical spondylosis with e vidence of neural foraminal narrowing and mild central spinal stenosis. There are findings which coul d explain a right radiculopathy as noted above.
--- NOTE | 2021-04-08 14:25 | ER ---
Nurse's Notes [facility] Name: Jesenia Rodriguez Age: 55 yrs Sex: Female : 1965 Arrival Date: 04/08/2021 Time: 12:27 Bed 18 Private MD: Diagnosis: Radiculopathy, cervical region Presentation: 04/08 12:35 Chief complaint: Patient states: R shoulder pain worse than usual for past two weeks. ll1 Has seen her doctor for this. Gabapentin doesn't help. Coronavirus screen: Vaccine status: Patient reports receiving the 2nd dose of the covid vaccine. Client denies travel out of the [place] in the last 14 days. At this time, the client does not indicate any symptoms associated with coronavirus-19. Ebola Screen: Patient denies travel to an Ebola-affected area in the 21 days before illness onset. Initial Sepsis Screen: Does the patient meet any 2 criteria? No. Patient's initial sepsis screen is negative. Does the patient have a suspected source of infection? Yes: Bone or joint infection. Risk Assessment: Do you want to hurt yourself or someone else? Patient reports no desire to harm self or others. Onset of symptoms was March 25, 2021. 12:35 Method Of Arrival: Ambulatory ll1 12:35 Acuity: BRIAN 4 ll1 Triage Assessment: 12:36 General: Appears uncomfortable, Behavior is calm, cooperative, appropriate for age. ll1 Pain: Complains of pain in R shoulder. Musculoskeletal: Circulation, motion, and sensation intact. Capillary refill < 3 seconds, Reports pain in R shoulder. Historical: - Allergies: 12:36 Cinnamon; ll1 12:36 Claritin; ll1 12:36 Codeine; ll1 12:36 Darvocet-N 100; ll1 12:36 Demerol; ll1 12:36 Tylenol; ll1 12:36 Vicodin; ll1 - PMHx: 12:36 Hypertension; Migraines; Syncopal Episodes; TIA; ll1 - PSHx: 12:36 Total abdominal hysterectomy; ll1 - Immunization history:: Client reports receiving the 2nd dose of the Covid vaccine. - Social history:: Smoking status: Patient denies any tobacco usage or history of. Screenin:20 Abuse screen: Denies threats or abuse. Denies injuries from another. Nutritional eo2 screening: No deficits noted. Tuberculosis screening: No symptoms or risk factors identified. Fall Risk None identified. Assessment: 13:00 General: Appears in no apparent distress. comfortable, Behavior is calm, cooperative. lr4 Pain: Complains of pain in R shoulder Pain began x 2 wks. 13:02 Neuro: No deficits noted. Cardiovascular: No deficits noted. Respiratory: No deficits lr4 noted. Musculoskeletal: Reports pain in R shoulder Pain is 10 out of 10 on a pain scale. Vital Signs: 12:35 BP 131 / 78; Pulse 80; Resp 17; Temp 97.0; Pulse Ox 99% ; Weight 72.57 kg; Height 5 ft. ll1 7 in. (170.18 cm); Pain 10/10; 13:00 BP 125 / 72; Pulse 77; Resp 18; Pulse Ox 99% on R/A; lr4 14:30 BP 126 / 75; Pulse 73; Resp 15; Pulse Ox 98% ; Pain 3/10; eo2 12:35 Body Mass Index 25.06 (72.57 kg, 170.18 cm) ll1 ED Course: 12:27 Patient arrived in ED. ds1 12:28 Atul Head PA is PHCP. ashish 12:29 Federico Hernández MD is Attending Physician. jm 12:35 Arm band placed on Patient placed in an exam room, on a stretcher. ll1 12:36 Triage completed. ll1 13:20 Angeline Salinas, RN is Primary Nurse. eo2 13:20 Patient has correct armband on for positive identification. Pulse ox on. NIBP on. Door eo2 closed. Noise minimized. 13:20 No provider procedures requiring assistance completed. Patient did not have IV access eo2 during this emergency room visit. 13:30 CT C Spine In Process Unspecified. EDMS Administered Medications: 13:00 Drug: traMADol 50 mg Route: PO; lr4 14:56 Follow up: Response: No adverse reaction; Pain is decreased eo2 Outcome: 14:25 Discharge ordered by . ashish 14:56 Patient left the ED. ss 14:57 Discharged to home ambulatory. eo2 14:57 Condition: stable 14:57 Discharge instructions given to patient, Instructed on discharge instructions, follow up and referral plans. medication usage, Demonstrated understanding of instructions, follow-up care, medications, Prescriptions given X 1. Signatures: Dispatcher [employer] Atul Mullins PA PA jmm Sanford, Demi ds1 Naida Cassidy, RN RN ss George Diamond RN RN ll1 Angeline Salinas RN RN eo2 Dot De L aO RN RN lr4
--- NOTE | 2021-04-08 14:25 | EDPHYS ---
Physician Documentation [facility] Name: Jesenia Rodriguez Age: 55 yrs Sex: Female : 1965 Arrival Date: 04/08/2021 Time: 12:27 Bed 18 Private MD: ED Physician Federico Hernández HPI: 04/08 12:41 This 55 yrs old Black Female presents to ER via Ambulatory with complaints of R Arm jmm Pain. 12:41 The patient or guardian complains of pain. Onset: The symptoms/episode began/occurred. jmm Modifying factors: the symptoms are alleviated by nothing. The symptoms are aggravated by movement. This is a 55-year-old female with history of hypertension, migraines, TIAs that presents to the ED with complaints of right shoulder pain which the patient states is been chronic for several months. Patient is currently not taking any medication for the discomfort. While at work the patient was holding a tray and developed increased pain to the shoulder which radiated pain down the entire arm, the patient had to drop the tray full of food. Patient states she was sent home from work.. Historical: - Allergies: 12:36 Cinnamon; ll1 12:36 Claritin; ll1 12:36 Codeine; ll1 12:36 Darvocet-N 100; ll1 12:36 Demerol; ll1 12:36 Tylenol; ll1 12:36 Vicodin; ll1 - PMHx: 12:36 Hypertension; Migraines; Syncopal Episodes; TIA; ll1 - PSHx: 12:36 Total abdominal hysterectomy; ll1 - Immunization history:: Client reports receiving the 2nd dose of the Covid vaccine. - Social history:: Smoking status: Patient denies any tobacco usage or history of. ROS: 12:41 Constitutional: Negative for fever, chills, and weight loss, Cardiovascular: Negative jmm for chest pain, palpitations, and edema, Respiratory: Negative for shortness of breath, cough, wheezing, and pleuritic chest pain. 12:41 MS/extremity: Positive for pain. 12:41 All other systems are negative. Exam: 12:41 Constitutional: This is a well developed, well nourished patient who is awake, alert, jmm and in no acute distress. Head/Face: atraumatic. Eyes: EOMI, no conjunctival erythema appreciated ENT: Moist Mucus Membranes Neck: Trachea midline, Supple Chest/axilla: Normal chest wall appearance and motion. Cardiovascular: Regular rate and rhythm. No edema appreciated Respiratory: Normal respirations, no respiratory distress appreciated Abdomen/GI: Non distended, soft Back: Normal ROM Skin: General appearance color normal 12:41 Musculoskeletal/extremity: Painful abduction noted to the right arm, full radial pulse, full veneer measurer strength appreciated, compartments are soft, neurovascular intact, sensation intact. 12:41 Skin: Appearance: Color: normal in color. 12:41 Neuro: Orientation: is normal, Mentation: is normal, Memory: is normal. 12:41 Psych: Behavior/mood is pleasant, cooperative. Vital Signs: 12:35 BP 131 / 78; Pulse 80; Resp 17; Temp 97.0; Pulse Ox 99% ; Weight 72.57 kg; Height 5 ft. ll1 7 in. (170.18 cm); Pain 10/10; 13:00 BP 125 / 72; Pulse 77; Resp 18; Pulse Ox 99% on R/A; lr4 14:30 BP 126 / 75; Pulse 73; Resp 15; Pulse Ox 98% ; Pain 3/10; eo2 12:35 Body Mass Index 25.06 (72.57 kg, 170.18 cm) ll1 MDM: 12:41 Patient medically screened. [facility] 14:24 Data reviewed: vital signs, nurses notes. Counseling: I had a detailed discussion with ashish the patient and/or guardian regarding: the historical points, exam findings, and any diagnostic results supporting the discharge/admit diagnosis, the need for outpatient follow up, to return to the emergency department if symptoms worsen or persist or if there are any questions or concerns that arise at home. 04/08 12:47 Order name: CT C Spine; Complete Time: 13:53 [facility] Administered Medications: 13:00 Drug: traMADol 50 mg Route: PO; lr4 14:56 Follow up: Response: No adverse reaction; Pain is decreased eo2 Disposition: 04/09 09:09 Co-signature as Attending Physician, Federico Hernández MD I agree with the assessment and [facility] plan of care. Disposition Summary: 04/08/21 14:25 Discharge Ordered Location: Home [facility] Condition: Stable [facility] Diagnosis - Radiculopathy, cervical region [facility] Followup: [facility] - With: Private Physician - When: 2 - 3 days - Reason: Recheck today's complaints, Continuance of care, Re-evaluation by your physician Discharge Instructions: - Discharge Summary Sheet ashish - Cervical Radiculopathy ashish Forms: - Medication Reconciliation Form ashish - Thank You Letter ashish - Antibiotic Education jmcarroll - Prescription Opioid Use jmm - Work release form eb Prescriptions: - Cyclobenzaprine 10 mg Oral Tablet - take 1 tablet by ORAL route every 8 hours As needed; 30 tablet; Refills: 0, jmm Product Selection Permitted Signatures: Dispatcher [employer] EDAtul Tidwell PA PA jmm Lewis, Lynsay RN RN ll1 Federico Hernández MD MD jr11 Dot De La O RN RN lr4 Angeline Salinas RN eo2
[2021-04-08 15:00] VITALS: TEMP 97; O2SAT 99
[2021-04-08 15:01] VITALS: BP 125/72
== END 2021-04-08 14:56 | disposition home or self-care (01) ==
LOC: ER 12:23
DX: M54.12 Radiculopathy, cervical region (principal); I10 Essential (primary) hypertension; Z88.5 Allergy status to narcotic agent; Z88.6 Allergy status to analgesic agent; Z91.018 Allergy to other foods
CPT/HCPCS: 72125; 99284

== ENCOUNTER 2021-04-26 11:02 | Emergency (ER) | payer SELFPAY ==
--- OUTSIDE RECORDS SUMMARY | 2021-04-26 11:11 | XMS REPORT | Continuity of Care Document ---
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 Clinician (SIG) Name Name traMADol 0 2020- No 50mg 50 mg, Univer s (ULTRAM) -16 02-25 Oral, ity of tablet 50 23:15: 23:26 ONCE, 1 [place] mg 00 :00 dose, [facility] 02/25/19 at [place] 1715, Routine SUMAtriptan 2017-02 Yes 50mg Take 1 Univ ers (IMITREX) 0-03 tablet by ity o f 50 mg 00:00: mouth as [place] tablet 00 needed for Medical Migraine. [place] IBUPROFEN Yes None Univers 600 MG ORAL 6-09 Entered ity o f TAB 14:41: [place] 25 [facility] Branch ketorolac 0 Yes 10mg Take 1 Univer s 10 mg 6- tablet by ity of tablet 00:00: mouth [place] 00 every 6 Medical (six) Branch hours as needed for Pain (scale 7-10). ULTRAM ER Yes None Univers 200 MG ORAL 7-04 Entered ity o f TB24 14:35: [place] 37 [facility] Branch FERROUS Yes 3 tabs Univers SULFATE 250 7- daily ity of MG ORAL 14:35: [facility] 37 [facility] DOCUSATE Yes 1 Cap Oral Uni vers CALCIUM 240 7- BID ity of MG ORAL CAP 00:00: [place] 00 Medical Branch TRAMADOL 50 Yes 1 Tab Oral Univers MG ORAL TAB 7- Q6HPRN ity of 00:00: [place] 00 Medical Branch CLIMARA Yes one patch Unive rs 0.06 MG/24 08-13 applied to ity of HR 00:00: clean skin [place] TRANSDERMAL 00 surface Medic al [facility] area Branch weekly CEPHALEXIN Yes one tab po U nivers 500 MG ORAL 08-13 bid ity of CAP 00:00: [address] Vital Signs Vital Name Observation Time Observation Value Comments Source Systolic blood 2019-02-25 23:00:00 154 mm[Hg] [facility] [place] [facility] Diastolic blood 2019-02-25 23:00:00 95 mm[Hg] [facility] Heart rate 2019-02-25 23:00:00 61 /min [facility] Respiratory rate 2019-02-25 23:00:00 18 /min [facility] Oxygen saturation in 2019-02-25 23:00:00 100 /min [facility] Arterial blood by [facility] Pulse oximetry Branch Body temperature 2019-02-25 21:31:00 36.78 Jerilyn [facility] Body weight 2019-02-25 21:31:00 65.772 kg [facility] BMI 2019-02-25 21:31:00 22.71 kg/m2 [facility] Systolic blood 2019-02-25 23:00:00 154 mm[Hg] Univer [facility] Diastolic blood 2019-02-25 23:00:00 95 mm[Hg] [facility] pressure [facility] Heart rate 2019-02-25 23:00:00 61 /min [facility] Respiratory rate 2019-02-25 23:00:00 18 /min [facility] Oxygen saturation in 2019-02-25 23:00:00 100 /min [facility] Arterial blood by [facility] Pulse oximetry [place] Body temperature 2019-02-25 21:31:00 36.78 [facility]n [facility] weight 2019-02-25 21:31:00 65.772 kg [facility] BMI 2019-02-25 21:31:00 22.71 kg/m2 [facility] Procedures Procedure Date / Time Performed Performing Clinician Twin e CT CERVICAL SPINE WO 2019-02-25 22:58:44 Ray Stewart [facility] XR CHEST 2 VW 2019-02-25 22:41:55 Ray Stewart [facility] XR SHOULDER 2+ VW 2019-02-25 22:41:55 Ray Stewart [facility] LEFT [facility] Encounters Start End Encounter Admission Attending Care Care Encounter Source Date/Time Date/Time Type Type Clinicians Facility Department ID 2019-02-25 2019-02-25 Emergency Clara [facility] [id number] Univers 15:32:56 17:51:00 Ray Burns [id number] i ty of [place] [id number] [facility] [id number] [facility] 084 Branch 2019-02-25 2019-02-25 Emergency X CLARA CTVISHAL ERT [id number] Univers 15:32:56 17:51:00 RAY [facility] 2019-02-25 2019-02-25 Emergency Clara [facility] [id number] 15:32:56 17:51:00 Ray Burns [id number] [place] [id number] [place] [id number] Results Test Description Test Time Test Comments Results Result Sourphoebe e Comments SCR MAMM 2021-04-06 BILATERAL AUGUSTINA 12:54:52 CAD DIGITAL Name: Jesenia : 1965 Sex: F - SCR MAMM BILATERAL AUGUSTINA CAD DIGITALBILATERAL DIGITAL SCREENING MAMMOGRAM 3D/2D WITH CAD: 03/22/2021LINICAL: Asymptomatic. Digital breast tomosynthesis was performed in addition to routine CC and MLO views. Current mammographic images were evaluated by [employer] CAD (computer-aided detection) software. No prior exams were available for comparison. There are scattered fibroglandular tissues in both breasts. No suspicious mass, architectural distortion, malignant type calcification, or lymph node abnormality detected. IMPRESSION: NEGATIVEThere is no mammographic evidence of malignancy. Resume annual screening mammography in one year. Bethel Wheeler M.D. et/penrad:04/06/2021 12:54:52 Hospitality Workers: Wendi Leija MM, [facility] Mammographyletter sent: BIRADS 1-2 Normal Mammogram BI-RADS: 1 Negative SARS-CoV-2 (COVID-19), RT-PCR/TMA 2021-03-01 15:38:51 Test Item Value Reference Range Interpretation Comme nts SARS-CoV-2 INTERPRETATION POSITIVE SEE NOTE A S ARS-CoV-2 RNA DETECTEDPositive (test code = 17284) results are indicative of the presence of ALL S-CoV-2 RNA;clinical co rrelation with patient history and other diagnosticinfor mation is necessary to de termine patient infection statu s.Positive results do not rule out bacterial infection or co -infectionwith other viruses. Positive and negative predic tive values oftesting are h ighly dependent on prevalence. SOURCE (test code = 37153) NASOPHARYNGEAL Note: Methodology is Cornel Oma Real-Time RT-PC R. The expected result or ref erence range is NEGATIVE (Not D etected). For more information reg arding COVID-19 testing to incl ude clinicalinforma tion, methodology detail, intende d use, FDA authorization a ndrecommended fact sheets for gi ents or healthcare providers, see [facility] Announcement: S ARS-CoV-2 (COVID-19) by Davi CANALES at URL below (note,fact shee ts are provided by method given in report:https:// www.[employer]/cl inicians/client -communications/ Alternatively, see downloadable PDF fact sheet at:https://www. [employer]/COVID- 19-RT-PCR UNLESS OTHERWISE INDICATED, ALL TESTING PERFORMED ATCLINICAL PATH OLOGY [facility], [facility]. [address] [place] [address] 4 LABORATORY DIRE CTOR: DELORES JIMENEZ M.D. CLIA NUMBER [id number] [place]. [id number] CT CERVICAL SPINE WO [id number] 23:28:36 No acute fracture of the cervical [...] reviewed this study and agree with the abovereport.[facility] 2 [id number] 22:48:15HISTORY: ?Chest pain. TECHNIQUE: PA and lateral views of the chest are obtained. FINDINGS: No acute pneumonia detected. No pneumothorax or pleural effusionor pulmonary congestion. Cardiomediastinal silhouette appears normal.Incidental note made of cholecystectomy clips in the upper abdomen,visualized in the lateral view. CONCLUSIONS: No signs of acute cardiopulmonary disease. [facility] [employer] User - 02/25/2019 4:49 PM CSTHISTORY: Chest pain.TECHNIQUE: PA and lateral views of the chest are obtained.FINDINGS: No acute pneumonia detected. No pneumothorax or pleural effusionor pulmonary congestion. Cardiomediastinal silhouette appears normal.Incidental note made of cholecystectomy clips in the upper abdomen,visualized in the lateral view.CONCLUSIONS: No signs of acute cardiopulmonary disease.[facility] SH[facility]ER 2+ VW LEFT 2019-02-25 22:47:28HISTORY: Trauma. FINDINGS: 2 frontal views of left shoulder obtained with the arm ininternal and external rotation positions showed no acute fracture ordislocation. Mild glenohumeral joint degenerativearthritis and mild ACjoint degenerative arthrosis noted. No appreciable calcifications in therotatorcuff tendons or aggressive bone lesions seen. CONCLUSIONS: No acute fracture or dislocation in left shoulder. [facility] 02/25/2019 4:48 PM CSTHISTORY: Trauma.FINDINGS: 2 frontal views of left shoulder obtained with the arm ininternal and external rotation positions showed no acute fracture ordislocation. Mild glenohumeral joint degenerative arthritis and mild ACjoint degenerative arthrosis noted. No appreciable calcifications in therotator cuff tendons or aggressive bone lesions seen.CONCLUSIONS: No acute fracture or dislocation in left shoulder.[facility]
[2021-04-26 11:43] LABS: Absolute Lymphocytes (CBC) 2.4 K/uL (0.7-4.9); Lymphocytes % 38.1 % (15.3-44.8); MPV 8.1 fL (7.6-11.3); RBC Red Blood Cell Count 4.49 M/uL (3.86-4.86)
--- NOTE | 2021-04-26 11:52 | RAD REPORT ---
EXAM DESCRIPTION: Anil Single View3 11:43 am CLINICAL HISTORY: Hypertension/syncope COMPARISON: 2020 FINDINGS: The lungs appear clear of acute infiltrate. The heart is normal size IMPRESSION: No acute abnormalities displayed
[2021-04-26 12:01] LABS: Albumin 3.7 g/dL (3.4-5.0); Bilirubin Total 0.3 mg/dL (0.2-1.0); Potassium 3.7 mmol/L (3.5-5.1); Protein, Total 7.9 g/dL (6.4-8.2); Troponin High Sensitivity 3.8 pg/mL (<58.9)
--- NOTE | 2021-04-26 12:30 | EDPHYS ---
Physician Documentation [facility] Name: Jesenia Rodriguez Age: 55 yrs Sex: Female : 1965 Arrival Date: 04/26/2021 Time: 11:05 Bed 8 Private MD: ED Physician Eagle Damon HPI: 04/26 11:15 This 55 yrs old Black Female presents to ER via Ambulatory with complaints of ms3 Lightheaded, Nausea. 11:15 Onset: The symptoms/episode began/occurred acutely, 3 hour(s) ago. Context: occurred at ms3 work. Modifying factors: The symptoms are alleviated by nothing, the symptoms are aggravated by nothing. Associated signs and symptoms: The patient has no apparent associated signs or symptoms. Severity of symptoms: At their worst the symptoms were moderate in the emergency department the symptoms are unchanged. 85-year-old female with past medical history of hypertension, migraines, syncopal episodes, TIA presents for lightheadedness and nausea that began while at work. Patient states she sat down did not pass out. Patient denies pain at this time. Patient denies alleviating or inciting factors. Patient states she did have nausea with 2 episodes of emesis.. 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 - Social history:: Smoking status: Patient denies any tobacco usage or history of. ROS: 11:15 Constitutional: Negative for fever, and chills. Eyes: Negative for injury, pain, ms3 redness, and discharge, Neck: Negative for injury, pain, and swelling, Cardiovascular: Negative for chest pain, and palpitations. Respiratory: Negative for shortness of breath, cough, wheezing, and pleuritic chest pain, Back: Negative for injury and pain, MS/Extremity: Negative for injury and deformity, Skin: Negative for injury, rash, and discoloration. 11:15 Abdomen/GI: Positive for nausea and vomiting. 11:15 Neuro: Positive for Lightheaded. Exam: 10:25 ECG was reviewed by the Attending Physician. ms3 12:45 Constitutional: This is a well developed, well nourished patient who is awake, alert, ms3 and in no acute distress. Head/Face: Normocephalic, atraumatic. Eyes: Pupils equal round and reactive to light, extra-ocular motions intact. Lids and lashes normal. Conjunctiva and sclera are non-icteric and not injected. Periorbital areas with no swelling, redness, or edema. Neck: Trachea midline, no cervical lymphadenopathy. Supple, full range of motion without nuchal rigidity, or vertebral point tenderness. No Meningismus. Chest/axilla: Normal chest wall appearance and motion. Nontender with no deformity. Cardiovascular: Regular rate and rhythm with a normal S1 and S2. No gallops, murmurs, or rubs. Normal PMI, no JVD. No pulse deficits. Respiratory: Lungs have equal breath sounds bilaterally, clear to auscultation and percussion. No rales, rhonchi or wheezes noted. No increased work of breathing, no retractions or nasal flaring. Abdomen/GI: Soft, non-tender, with normal bowel sounds. No distension or tympany. No guarding or rebound. No evidence of tenderness throughout. Psych: Awake, alert, with orientation to person, place and time. Behavior, mood, and affect are within normal limits. 12:45 Neuro: Orientation: to person, place, time \T\ situation. Mentation: is normal, Memory: is normal, Cranial nerves: CN II- XII are normal as tested, Cerebellar function: is grossly normal, normal finger to nose testing, Motor: is normal, Sensation: is normal, Gait: is steady, at a normal pace. Vital Signs: 11:12 BP 128 / 87; Pulse 71; Resp 17; Temp 97.9; Pulse Ox 100% on R/A; Weight 72.57 kg (R); tw2 12:24 BP 153 / 71; Pulse 58; Resp 18; Pulse Ox 100% on R/A; ph 12:57 BP 164 / 94; Pulse 61; Resp 19; Pulse Ox 98% on R/A; urias MDM: 11:17 Patient medically screened. ms3 12:44 ED course: Discussed discharge with patient and patient placed for discharge after ms3 normal neurologic exam to include [id number]. On patient sitting up for discharge patient began to experience dizziness that she describes as the room spinning and developed some nausea. 5 mg Versed p.o. ordered. Will reevaluate patient prior to discharge.. 13:08 Transition of care: After a detail discussion of the patient's case, care is ms3 transferred to Federico Hernández MD. 13:52 Differential diagnosis: peripheral vertigo, HINTS exam negative, vertigo reproducible. jr11 Data reviewed: vital signs, correction records. 04/26 11:14 Order name: CBC with Diff; Complete Time: 12:25 ms3 04/26 11:14 Order name: Troponin HS; Complete Time: 12:25 ms3 04/26 11:14 Order name: XRAY Chest (1 view); Complete Time: 12:25 ms3 04/26 11:14 Order name: CMP; Complete Time: 12:25 ms3 04/26 11:14 Order name: EKG; Complete Time: 11:14 ms3 04/26 11:14 Order name: Cardiac monitoring; Complete Time: 11:34 ms3 04/26 11:14 Order name: EKG - Nurse/Tech; Complete Time: 11:34 ms3 04/26 11:14 Order name: IV Saline Lock; Complete Time: 11:34 ms3 04/26 11:14 Order name: Labs collected and sent; Complete Time: 11:34 ms3 04/26 11:14 Order name: O2 Per Protocol; Complete Time: 11:34 ms3 04/26 11:14 Order name: O2 Sat Monitoring; Complete Time: 11:34 ms3 EC:25 Rate is 57 beats/min. Rhythm is regular. QRS [place] is Normal. Clinical impression: Sinus ms3 bradycardia. Interpreted by me. Administered Medications: 11:34 Drug: Zofran (Ondansetron) 4 mg Route: IVP; Site: right antecubital; urias 11:34 Follow up: Response: No adverse reaction urias 12:51 Drug: Valium (diazepam) 5 mg Route: PO; urias 12:51 Follow up: Response: No adverse reaction urias Disposition Summary: 04/26/21 13:53 Discharge Ordered Location: Home(04/26/21 13:53) jr11 Condition: Stable(04/26/21 13:53) jr11 Diagnosis - Benign paroxysmal vertigo jr11 - Other peripheral vertigo jr11 Followup: jr11 - With: Private Physician - When: 2 - 3 days - Reason: Re-evaluation by your physician Discharge Instructions: - Discharge Summary Sheet jr11 - Benign Positional Vertigo jr11 - Nausea and Vomiting, Adult jr11 Forms: - Medication Reconciliation Form jr11 - Thank You Letter jr11 - Antibiotic Education jr11 - Prescription Opioid Use jr11 Prescriptions: - Zofran 4 mg Oral Tablet - take 1 tablet by ORAL route every 12 hours As needed; 6 tablet; Refills: 0, jr11 Product Selection Permitted Signatures: Dispatcher [employer] EDMS Caity Luo RN RN tw2 Eagle Damon, DO ms3 Au-StagerEvita RN RN ha Rosillo, Jose, MD MD jr11 Corrections: (The following items were deleted from the chart) 12:44 12:30 Home ms3 ms3 12:44 12:30 Stable ms3 ms3 12:44 12:30 Nausea with vomiting, unspecified ms3 ms3 12:44 12:30 Lightheadedness ms3 ms3
--- NOTE | 2021-04-26 12:30 | ER ---
Nurse's Notes [facility] Name: Jesenia Rodriguez Age: 55 yrs Sex: Female : 1965 Arrival Date: 04/26/2021 Time: 11:05 Bed 8 Private MD: Diagnosis: Benign paroxysmal vertigo;Other peripheral vertigo Presentation: 04/26 11:12 Chief complaint: Patient states: about 830 this morning started feeling light headed tw2 and nauseous this morning. i vomited 2 times today. Coronavirus screen: At this time, the client does not indicate any symptoms associated with coronavirus-19. Ebola Screen: Patient denies travel to an Ebola-affected area in the 21 days before illness onset. Initial Sepsis Screen: Does the patient meet any 2 criteria? No. Patient's initial sepsis screen is negative. Does the patient have a suspected source of infection? No. Patient's initial sepsis screen is negative. Risk Assessment: Do you want to hurt yourself or someone else? Patient reports no desire to harm self or others. Onset of symptoms was April 26, 2021. 11:12 Method Of Arrival: Ambulatory tw 11:12 Acuity: BRIAN 3 tw2 11:[address] Damon in triage room performing assessment. tw2 Triage Assessment: 11:36 General: Appears uncomfortable, Behavior is calm, cooperative. GI: Reports nausea, urias vomiting. 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 - Social history:: Smoking status: Patient denies any tobacco usage or history of. Screenin:34 Abuse screen: Denies threats or abuse. Denies injuries from another. Nutritional urias screening: No deficits noted. Tuberculosis screening: No symptoms or risk factors identified. Fall Risk IV access (20 points). Assessment: 11:34 Pain: Denies pain. Cardiovascular: Reports lightheadedness, dizziness. GI: Abdomen is urias flat, non-distended, Reports nausea, vomiting. 12:23 Reassessment: Patient appears in no apparent distress at this time. Patient and/or ph family updated on plan of care and expected duration. Pain level reassessed. Patient is alert, oriented x 3, equal unlabored respirations, skin warm/dry/pink. Vital Signs: 11:12 BP 128 / 87; Pulse 71; Resp 17; Temp 97.9; Pulse Ox 100% on R/A; Weight 72.57 kg (R); tw2 12:24 BP 153 / 71; Pulse 58; Resp 18; Pulse Ox 100% on R/A; ph 12:57 BP 164 / 94; Pulse 61; Resp 19; Pulse Ox 98% on R/A; urias ED Course: 11:05 Patient arrived in ED. kz 11:05 Eagle Damon DO is Attending Physician. ms3 11:13 Triage completed. tw2 11:13 Arm band placed on. tw2 11:34 Patient has correct armband on for positive identification. Side rails up X2. urias 11:34 CBC with Diff Sent. urias 11:34 Troponin HS Sent. urias 11:34 No provider procedures requiring assistance completed. Inserted saline lock: 20 gauge urias in right antecubital area, using aseptic technique. 11:34 EKG done, by ED staff. tp1 11:43 XRAY Chest (1 view) In Process Unspecified. EDMS 12:29 Ar Sousa MD is Referral Physician. ms3 14:06 IV discontinued, intact, Pressure dressing applied. urias Administered Medications: 11:34 Drug: Zofran (Ondansetron) 4 mg Route: IVP; Site: right antecubital; urias 11:34 Follow up: Response: No adverse reaction urias 12:51 Drug: Valium (diazepam) 5 mg Route: PO; urias 12:51 Follow up: Response: No adverse reaction urias Outcome: 12:30 Discharge ordered by . ms3 13:53 Discharge ordered by . jr11 14:05 Discharged to home urias 14:05 Condition: good 14:05 Discharge instructions given to patient, Prescriptions given X 2. 14:06 Patient left the ED. urias Signatures: Dispatcher [employer] EDMS Kanwal Hazel, RN RN ph Luo, LUIGI Carolina RN tw2 Eagle Damon DO DO ms3 Taylor Benton tp1 Evita Kumar RN RN Federico Castañeda MD MD jr11 Julissa Pearlz
[2021-04-26] MEDS ORDERED: DIAZEPAM 5 MG TABLET ONE (12:49)
[2021-04-26 14:19] VITALS: TEMP 97.9
[2021-04-26 14:20] VITALS: BP 164/94; O2SAT 98
--- NOTE | 2021-04-30 08:31 | EKG ---
Test Date: 2021-04-26 Test Time: 10:25:48 Drill Runner: NOREEN MEASUREMENT RESULTS: Intervals: Rate: 57 AL: 208 QRSD: 84 QT: 402 QTc: 391 [place]: P: 73 AL: 208 QRS: 44 T: 55 INTERPRETIVE STATEMENTS: Sinus bradycardia Otherwise normal ECG Compared to ECG 08/03/2020 10:51:23 Sinus rhythm no longer present First degree AV block no longer present Myocardial infarct finding no longer present Electronically Signed On 04-30-21 08:23:43 CDT by Jacinto Zamora
== END 2021-04-26 14:06 | disposition home or self-care (01) ==
LOC: ER 11:02
DX: H81.10 Benign paroxysmal vertigo, unspecified ear (principal); H81.399 Other peripheral vertigo, unspecified ear; I10 Essential (primary) hypertension; Z86.73 Personal history of transient ischemic attack (TIA), and cerebral infarction without residual deficits; Z88.5 Allergy status to narcotic agent; Z91.02 Food additives allergy status
CPT/HCPCS: 36415; 71045; 80053; 84484; 85025; 93005; 96374; 99284

== ENCOUNTER 2021-05-09 08:58 | Emergency (ER) | payer SELFPAY ==
--- OUTSIDE RECORDS SUMMARY | 2021-05-09 09:01 | XMS REPORT | Continuity of Care Document ---
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 [place] IBUPROFEN Yes None Univers 600 MG ORAL 6-09 Entered ity o f TAB 14:41: [place] 25 [facility] Branch ketorolac 0 Yes 10mg Take 1 Univer s 10 mg 6- tablet by ity of tablet 00:00: mouth [place] 00 every 6 Medical (six) Branch hours as needed for Pain (scale 7-10). ULTRAM ER Yes None Univers 200 MG ORAL 7-04 Entered ity o f TB24 14:35: [place] 37 [facility] Branch FERROUS Yes 3 tabs Univers SULFATE 250 7- daily ity of MG ORAL 14:35: [facility] 37 [facility] DOCUSATE Yes 1 Cap Oral Uni vers CALCIUM 240 7- BID ity of MG ORAL CAP 00:00: [place] 00 Medical Branch TRAMADOL 50 Yes 1 Tab Oral Univers MG ORAL TAB 7- Q6HPRN ity of 00:00: [place] 00 Medical Branch CLIMARA Yes one patch Unive rs 0.06 MG/24 08-13 applied to ity of HR 00:00: clean skin [place] TRANSDERMAL 00 surface Medic al PTWK area Branch weekly CEPHALEXIN Yes one tab po U nivers 500 MG ORAL 08-13 bid ity of CAP 00:00: [address] Vital Signs Vital Name Observation Time Observation Value Comments Source Systolic blood 2019-02-25 23:00:00 154 mm[facility]Hg[facility] 2019-02-25 23:00:00 95 [facility]Hg[facility] Heart rate 2019-02-25 23:00:00 61 /min [facility] Respiratory rate 2019-02-25 23:00:00 18 /min [facility] Oxygen saturation in 2019-02-25 23:00:00 100 /min [facility] Arterial blood by [facility] Pulse oximetry Branch Body temperature 2019-02-25 21:31:00 36.78 Jerilyn [facility] Body weight 2019-02-25 21:31:00 65.772 kg [facility] BMI 2019-02-25 21:31:00 22.71 kg/m2 [facility] Systolic blood 2019-02-25 23:00:00 154 mm[Hg] [facility]iver [facility] Diastolic blood 2019-02-25 23:00:00 95 mm[Hg] [facility] of pressure [facility] Heart rate 2019-02-25 23:00:00 61 /min [facility] Respiratory rate 2019-02-25 23:00:00 18 /min [facility] Oxygen saturation in 2019-02-25 23:00:00 100 /min [facility] Arterial blood by [facility] Pulse oximetry [place] Body temperature 2019-02-25 21:31:00 36.78 Jerilyn [facility] weight 2019-02-25 21:31:00 65.772 kg [facility] BMI 2019-02-25 21:31:00 22.71 kg/m2 [facility] Procedures Procedure Date / Time Performed Performing Clinician Twin e CT CERVICAL SPINE WO 2019-02-25 22:58:44 Ray Stewart [facility] XR CHEST 2 VW 2019-02-25 22:41:55 Ray Stewart [place] o f [facility] XR SHOULDER 2+ VW 2019-02-25 22:41:55 Ray Stewart [facility] LEFT [facility] Encounters Start End Encounter Admission Attending Care Care Encounter Source Date/Time Date/Time Type Type Clinicians Facility Department ID 2019-02-25 2019-02-25 Emergency Clara [facility] [id number] Univers 15:32:56 17:51:00 Ray Burns [id number] i ty of [place] [id number] [facility] [id number] [facility] 084 Branch 2019-02-25 2019-02-25 Emergency X CLARA IAVISHAL ERT [id number] Univers 15:32:56 17:51:00 RAY [facility] 2019-02-25 2019-02-25 Emergency Clara [facility] [id number] 15:32:56 17:51:00 Ray Burns [id number] [place] [id number] [place] [id number] Results Test Description Test Time Test Comments Results Result Sourphoebe e Comments SCR MAMM 2021-04-06 BILATERAL AUGUSTINA 12:54:52 CAD DIGITAL Name: Jesenia : 1965 Sex: F - SCR MAMM BILATERAL AUGUSTINA CAD DIGITALBILATERAL DIGITAL SCREENING MAMMOGRAM 3D/2D WITH CAD: 03/22/2021LINICAL: Asymptomatic. Digital breast tomosynthesis was performed in addition to routine CC and MLO views. Current mammographic images were evaluated by [employer] CAD (computer-aided detection) software. No prior exams were available for comparison. There are scattered fibroglandular tissues in both breasts. No suspicious mass, architectural distortion, malignant type calcification, or lymph node abnormality detected. IMPRESSION: NEGATIVEThere is no mammographic evidence of malignancy. Resume annual screening mammography in one year. Bethel Wheeler M.D. et/penrad:04/06/2021 12:54:52 Etymology Teacher: Wendi Leija MM, [facility] Mammographyletter sent: BIRADS 1-2 Normal Mammogram BI-RADS: 1 Negative SARS-CoV-2 (COVID-19), RT-PCR/TMA 2021-03-01 15:38:51 Test Item Value Reference Range Interpretation Comme nts SARS-CoV-2 INTERPRETATION POSITIVE SEE NOTE A S ARS-CoV-2 RNA DETECTEDPositive (test code = 71649) results are indicative of the presence of ALL S-CoV-2 RNA;clinical co rrelation with patient history and other diagnosticinfor mation is necessary to de termine patient infection statu s.Positive results do not rule out bacterial infection or co -infectionwith other viruses. Positive and negative predic tive values oftesting are h ighly dependent on prevalence. SOURCE (test code = 60990) NASOPHARYNGEAL Note: Methodology is Cornel Oma Real-Time RT-PC R. The expected result or ref erence range is NEGATIVE (Not D etected). For more information reg arding COVID-19 testing to incl ude clinicalinforma tion, methodology detail, intende d use, FDA authorization a ndrecommended fact sheets for gi ents or healthcare providers, see [facility] Announcement: S ARS-CoV-2 (COVID-19) by Davi CANALES at URL below (note,fact shee ts are provided by method given in report:https:// www.[employer]/cl inicians/client -communications/ Alternatively, see downloadable PDF fact sheet at:https://www. [employer]/COVID- 19-RT-PCR UNLESS OTHERWISE INDICATED, ALL TESTING PERFORMED ATCLINICAL PATH OLOGY FORMERLY [facility], [facility]. [address] [place] [address] 4 LABORATORY DIRE CTOR: DELORES JIMENEZ M.D. CLIA NUMBER [id number] [place]. [id number] CT CERVICAL SPINE WO [id number] 23:28:36 No acute fracture of the cervical [...] reviewed this study and agree with the abovereport.[facility] 2 [id number] 22:48:15HISTORY: ?Chest pain. TECHNIQUE: PA and lateral views of the chest are obtained. FINDINGS: No acute pneumonia detected. No pneumothorax or pleural effusionor pulmonary congestion. Cardiomediastinal silhouette appears normal.Incidental note made of cholecystectomy clips in the upper abdomen,visualized in the lateral view. CONCLUSIONS: No signs of acute cardiopulmonary disease. [facility], [facility] Results In[employer] User - 02/25/2019 4:49 PM CSTHISTORY: Chest pain.TECHNIQUE: PA and lateral views of the chest are obtained.FINDINGS: No acute pneumonia detected. No pneumothorax or pleural effusionor pulmonary congestion. Cardiomediastinal silhouette appears normal.Incidental note made of cholecystectomy clips in the upper abdomen,visualized in the lateral view.CONCLUSIONS: No signs of acute cardiopulmonary disease.[facility]+ VW LEFT 2019-02-25 22:47:28HISTORY: Trauma. FINDINGS: 2 frontal views of left shoulder obtained with the arm ininternal and external rotation positions showed no acute fracture ordislocation. Mild glenohumeral joint degenerativearthritis and mild ACjoint degenerative arthrosis noted. No appreciable calcifications in therotatorcuff tendons or aggressive bone lesions seen. CONCLUSIONS: No acute fracture or dislocation in left shoulder. [facility]25/2019 4:48 PM CSTHISTORY: Trauma.FINDINGS: 2 frontal views of left shoulder obtained with the arm ininternal and external rotation positions showed no acute fracture ordislocation. Mild glenohumeral joint degenerative arthritis and mild ACjoint degenerative arthrosis noted. No appreciable calcifications in therotator cuff tendons or aggressive bone lesions seen.CONCLUSIONS: No acute fracture or dislocation in left shoulder.[facility]
[2021-05-09] MEDS ORDERED: LORAZEPAM 0.5 MG TABLET ONE (09:21)
--- NOTE | 2021-05-09 10:14 | ER ---
Nurse's Notes [facility] Name: Jesenia Rodriguez Age: 55 yrs Sex: Female : 1965 Arrival Date: 05/09/2021 Time: 09:02 Bed 16 Private MD: Diagnosis: Acute stress reaction Presentation: 05/09 09:03 Chief complaint: EMS states: Having stress at home lately, "pressure". Pt states she is ss safe at home, everything just hit her at once while at work. Pt is tearful during triage. Coronavirus screen: Client denies travel out of the [place] in the last 14 days. Ebola Screen: Patient denies exposure to infectious person. Patient denies travel to an Ebola-affected area in the 21 days before illness onset. Initial Sepsis Screen: Does the patient meet any 2 criteria? No. Patient's initial sepsis screen is negative. Does the patient have a suspected source of infection? No. Patient's initial sepsis screen is negative. Risk Assessment: Do you want to hurt yourself or someone else? Patient reports no desire to harm self or others. Onset of symptoms was April 2020. 09:03 Method Of Arrival: Ambulatory ss 09:03 Acuity: BRIAN 3 ss Triage Assessment: 09:26 General: Appears distressed, well groomed, Behavior is crying. 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 - Social history:: Smoking status: Patient denies any tobacco usage or history of. Screenin:25 Abuse screen: Denies threats or abuse. Denies injuries from another. Nutritional jg9 screening: No deficits noted. Tuberculosis screening: No symptoms or risk factors identified. Fall Risk None identified. Assessment: 09:24 Reassessment: No changes from previously documented assessment. Pain: Denies pain. jg9 09:41 Reassessment: Patient states symptoms have improved. Patient is resting quietly, not jg9 crying at this time. Vital Signs: 09:03 BP 163 / 93; Pulse 74; Resp 20; Temp 98.5(O); Pulse Ox 100% on R/A; Weight 74.84 kg; ss Height 5 ft. 7 in. (170.18 cm); Pain 0/10; 09:15 BP 161 / 106; Pulse 68; Resp 20 S; Pulse Ox 99% ; jg9 09:30 BP 146 / 79; Pulse 68; Resp 16 S; Pulse Ox 100% on R/A; jg9 10:15 BP 154 / 98; Pulse 71; Resp 14 S; Pulse Ox 100% ; jg9 09:03 Body Mass Index 25.84 (74.84 kg, 170.18 cm) ED Course: 09:02 Patient arrived in ED. ss 09:04 Deb Ren FNP-C [facility] kb 09:04 Eagle Damon DO is Attending Physician. kb 09:11 Triage completed. ss 09:11 Arm band placed on right wrist. ss 09:15 Patient is extremely upset and hyperventilating, patient denied HI/SI but is unable to jg9 explain this acute change in how she is feeling, she denied any psych diagnosis or medications. "I just can't even describe how I feel". 09:16 Adela Montague, RN is Primary Nurse. jg9 09:24 Appears tearful. jg9 09:26 Patient has correct armband on for positive identification. Bed in low position. Call jg9 light in reach. Side rails up X 1. 09:41 Resting quietly. Patient seems to be more relaxed. jg9 09:42 Patient offered something to drink and a blanket however she reports she does not need jg9 anything at this time. . Administered Medications: 09:24 Drug: Ativan (LORazepam) 0.5 mg {Note: RASS-0.} Route: PO; jg9 10:30 Follow up: Response: No adverse reaction; Anxiety decreased jg9 Outcome: 10:13 Discharge ordered by . kb 10:47 Patient left the ED. jg9 Signatures: Deb Ren FNP-C FNP-Ckb Naida Cassidy, RN RN ss Adela Montague, RN RN jg9
--- NOTE | 2021-05-09 10:14 | EDPHYS ---
Physician Documentation [facility] Name: Jesenia Rodriguez Age: 55 yrs Sex: Female : 1965 Arrival Date: 05/09/2021 Time: 09:02 Bed 16 Private MD: ED Physician Eagle Damon HPI: 05/09 10:13 This 55 yrs old Black Female presents to ER via Ambulatory with complaints of Emotional kb distress. 10:13 The patient presents to the emergency department with anxiety, depression. Onset: The kb symptoms/episode began/occurred this morning. Associated signs and symptoms: Pertinent positives; anxiety, depression. Severity of symptoms: At their worst the symptoms were moderate in the emergency department the symptoms are unchanged. The patient has not experienced similar symptoms in the past. The patient has not recently seen a physician. Pt states she has been under a lot of stress lately and it all came down on her today causing her to have a breakdown. Pt tearful during exam. Pt denies HI or SI. 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 - Social history:: Smoking status: Patient denies any tobacco usage or history of. ROS: 10:14 Constitutional: Negative for fever, chills, and weight loss. kb 10:14 Psych: Positive for anxiety. 10:14 All other systems are negative. Exam: 10:14 Head/Face: Normocephalic, atraumatic. ENT: Moist Mucous membranes Cardiovascular: kb Regular rate and rhythm with a normal S1 and S2. No gallops, murmurs, or rubs. No pulse deficits. Respiratory: Respirations even and unlabored. No increased work of breathing. Talking in full sentences Skin: Warm, dry with normal turgor. Normal color. MS/ Extremity: Pulses equal, no cyanosis. Neurovascular intact. Full, normal range of motion. Neuro: Awake and alert, GCS 15, oriented to person, place, time, and situation. Moves all extremities. Normal gait. 10:14 Constitutional: The patient appears alert, awake, anxious. 10:14 Psych: Behavior/mood is cooperative, anxious, Affect is animated, Oriented to person, place, time, Patient has no thoughts/intents to harm self or others. Vital Signs: 09:03 BP 163 / 93; Pulse 74; Resp 20; Temp 98.5(O); Pulse Ox 100% on R/A; Weight 74.84 kg; ss Height 5 ft. 7 in. (170.18 cm); Pain 0/10; 09:15 BP 161 / 106; Pulse 68; Resp 20 S; Pulse Ox 99% ; jg9 09:30 BP 146 / 79; Pulse 68; Resp 16 S; Pulse Ox 100% on R/A; jg9 10:15 BP 154 / 98; Pulse 71; Resp 14 S; Pulse Ox 100% ; jg9 09:03 Body Mass Index 25.84 (74.84 kg, 170.18 cm) ss MDM: 09:04 Patient medically screened. kb 10:12 Data reviewed: vital signs, nurses notes. Data interpreted: Pulse oximetry: on room air kb is 100 %. Interpretation: normal. Counseling: I had a detailed discussion with the patient and/or guardian regarding: the historical points, exam findings, and any diagnostic results supporting the discharge/admit diagnosis, the need for outpatient follow up, a family practitioner, to return to the emergency department if symptoms worsen or persist or if there are any questions or concerns that arise at home. 10:15 ED course: After medication administration pt is no longer tearful. Pt appears calm. PT kb educated to follow up with [facility] or [facility] for further management . Administered Medications: 09:24 Drug: Ativan (LORazepam) 0.5 mg {Note: RASS-0.} Route: PO; jg9 10:30 Follow up: Response: No adverse reaction; Anxiety decreased jg9 Disposition: 11:04 Co-signature as Attending Physician, Eagle Damon DO I was immediately available on-site ms3 in the Emergency Department for consultation in the care of the patient.. Disposition Summary: 05/09/21 10:13 Discharge Ordered Location: Home kb Condition: Stable kb Diagnosis - Acute stress reaction kb Followup: kb - With: Emergency Department - When: As needed - Reason: Worsening of condition Followup: kb - With: Private Physician - When: 2 - 3 days - Reason: Recheck today's complaints, Continuance of care, Re-evaluation by your physician Discharge Instructions: - Discharge Summary Sheet kb - Panic Attack, [id number] kb - Managing Stress, Adult kb Forms: - Medication Reconciliation Form kb - Thank You Letter kb - Antibiotic Education kb - Prescription Opioid Use kb Signatures: Deb Ren, SURVEY SUPERINTENDENT-C JUAN-Naida Alonzo, RN RN ss Eagle Damon DO DO ms3 Adela Montague, RN RN jg9
[2021-05-09 10:56] VITALS: TEMP 98.5; O2SAT 100
[2021-05-09 11:12] VITALS: BP 154/98
== END 2021-05-09 10:47 | disposition home or self-care (01) ==
LOC: ER 08:58
DX: F43.0 Acute stress reaction (principal); I10 Essential (primary) hypertension; Z88.5 Allergy status to narcotic agent; Z88.6 Allergy status to analgesic agent; Z88.8 Allergy status to other drugs, medicaments and biological substances; Z91.018 Allergy to other foods
CPT/HCPCS: 99283

== ENCOUNTER 2021-07-07 22:07 | Emergency (ER) | payer SELFPAY ==
--- OUTSIDE RECORDS SUMMARY | 2021-07-07 22:11 | XMS REPORT | Continuity of Care Document ---
:1965 Author Organization [facility] t Address [address] [place] [address] Care Team Providers Name Role Phone Clara MARTINEZ Attending Clinician CLARA Attending Clinician Unavailable CLARA Admitting Clinician Unavailable Problems Condition Condition Condition Status Onset Resolution Last Treating Co mments Source Name Details Category Date Date Treatment Clinician Date Anemia Anemia Disease Active Overview: Univer s 08-12 ICD10 ity of 00:00: Diagnosis [place] [employer] Branch Utility Other Other Disease Active Univers [...] DRUG Active Unknown-Cmnt Un zoey NE INGREDI 6-30 ity of 00:00: [place] 00 Medical Branch Loratadi Propensi Active Unknown - 0 Laryngeal Univers ne ty to See comments 08-09 swelling it y of adverse 00:00: [place] reaction 00 Medical s Branch Codeine Propensi Active Anaphylaxis 2006-0 Un zoey ty to 09-04 ity of adverse 00:00: [place] reaction 00 Medical s Branch Propoxyp Propensi Active Hives 2006- Univer s hene ty to 09-04 ity of N-Acetam adverse 00:00: [place] inophen reaction 00 Medical s Branch CODEINE DRUG Active Anaphylaxis 2006- Univ ers INGREDI 09-04 ity of 00:00: [...] 00 Medical Branch Meperidi Propensi Active Hives 2006-0 Univer s ne Hcl ty to 09-04 ity of adverse 00:00: [place] reaction 00 Medical s Branch Hydrocod Propensi Active Hives 2006-0 Univer s one-Acet ty to 09-04 ity of aminophe adverse 00:00: [place] n reaction 00 [facility] [place] Social History Social Habit Start Date Stop Date Quantity Comments Source Sex Assigned At Uni versity [facility] Smoking Status Start Date Stop Date Source Unknown if ever smoked Universit y [facility] Medications Ordered Filled Start Stop Current Ordering Indication Dosage Frequency Signature Comments Components Source Medication Medication Date Date Medication? Clinician (SIG) Name Name traMADol 2019-0 2020- No 50mg 50 mg, Univer s (ULTRAM) -16 02-25 Oral, ity of tablet 50 23:15: 23:26 ONCE, 1 [place] mg [place] :00 dose, [facility] 02/25/19 at [place] 1715, Routine SUMAtriptan 2017-02 Yes 50mg Take 1 Univ ers (IMITREX) 0-03 tablet by ity o f 50 mg 00:00: mouth as [place] tablet 00 needed for Medical Migraine. [place] IBUPROFEN Yes None Univers 600 MG ORAL 6- Entered ity o f TAB 14:41: [place] 25 [facility] Branch ketorolac Yes 10mg Take 1 Univer s 10 mg 6- tablet by ity of tablet 00:00: mouth [place] 00 every 6 Medical (six) Branch hours as needed for Pain (scale 7-10). ULTRAM ER Yes None Univers 200 MG ORAL 7-04 Entered ity o f TB24 14:35: [place] 37 [facility] Branch FERROUS Yes 3 tabs Univers SULFATE 250 7-04 daily ity of MG ORAL 14:35: [place] CPSR 37 [facility] DOCUSATE Yes 1 Cap Oral Uni vers CALCIUM 240 7- BID ity of MG ORAL CAP 00:00: [place] 00 Medical Branch TRAMADOL 50 Yes 1 Tab Oral Univers MG ORAL TAB 7-04 Q6HPRN ity of 00:00: [place] 00 Medical Branch CLIMARA Yes one patch Unive rs 0.06 MG/24 08-13 applied to ity of HR 00:00: clean skin [place] TRANSDERMAL 00 surface Medic al PTWK area Branch weekly CEPHALEXIN Yes one tab po U nivers 500 MG ORAL -04 bid ity of CAP 00:00: [address] Vital Signs Vital Name Observation Time Observation Value Comments Source Systolic blood 2019-02-25 23:00:00 154 mm[Hg] [facility] Diastolic blood 2019-02-25 23:00:00 95 mm[Hg] [facility] Heart rate 2019-02-25 23:00:00 61 /min [facility] Respiratory rate 2019-02-25 23:00:00 18 /min [facility] Oxygen saturation in 2019-02-25 23:00:00 100 /min [facility] Arterial blood by [facility] Pulse oximetry Branch Body temperature 2019-02-25 21:31:00 36.78 Jerilyn [facility] Body weight 2019-02-25 21:31:00 65.772 kg [facility] BMI 2019-02-25 21:31:00 22.71 kg/m2 [facility] Systolic blood 2019-02-25 23:00:00 154 mm[facility]Hg[facility] 2019-02-25 23:00:00 95 mm[Hg] Unive rsity of pressure [facility] Heart rate 2019-02-25 23:00:00 61 /min [facility] Respiratory rate 2019-02-25 23:00:00 18 /min [facility] Oxygen saturation in 2019-02-25 23:00:00 100 /min [facility] Arterial blood by [facility] Pulse oximetry Branch Body temperature 2019-02-25 21:31:00 36.78 Jerilyn [facility] [place] [facility] Body weight 2019-02-25 21:31:00 65.772 kg [facility] BMI 2019-02-25 21:31:00 22.71 kg/m2 [facility] Procedures Procedure Date / Time Performed Performing Clinician Twin e CT CERVICAL SPINE WO 2019-02-25 22:58:44 Ray Stewart [facility] XR CHEST 2 VW 2019-02-25 22:41:55 Ray Stewart [place] [facility] XR SHOULDER 2+ VW 2019-02-25 22:41:55 Ray Stewart [facility] LEFT [facility] Encounters Start End Encounter Admission Attending Care Care Encounter Source Date/Time Date/Time Type Type Clinicians Facility Department ID 2019-02-25 2019-02-25 [id number] Univers 15:32:56 17:51:00 Ray Burns [id number] i ty of [place] [id number] [facility] [id number] [facility] 084 Branch 2019-02-25 2019-02-25 [facility] [id number] Univers 15:32:56 17:51:00 [facility] 2019-02-25 2019-02-25 [facility] [id number] 15:32:56 17:51:00 Ray Burns [id number] [place] [id number] [place] [id number] Results Test Description Test Time Test Comments Results Result Sourphoebe e Comments SCR MAMM 2021-04-06 BILATERAL AUGUSTINA 12:54:52 CAD DIGITAL Name: Jesenia : 1965 Sex: F - SCR MAMM BILATERAL AUGUSTINA CAD DIGITALBILATERAL DIGITAL SCREENING MAMMOGRAM 3D/2D WITH CAD: 03/22/2021LINICAL: Asymptomatic. Digital breast tomosynthesis was performed in addition to routine CC and MLO views. Current mammographic images were evaluated by ProtoStar ImagePathJump CAD (computer-aided detection) software. No prior exams were available for comparison. There are scattered fibroglandular tissues in both breasts. No suspicious mass, architectural distortion, malignant type calcification, or lymph node abnormality detected. IMPRESSION: NEGATIVEThere is no mammographic evidence of malignancy. Resume annual screening mammography in one year. Bethel Wheeler M.D. et/penrad:04/06/2021 12:54:52 Retail Store Clerk: Wendi Leija MM, [facility] Mammographyletter sent: BIRADS 1-2 Normal Mammogram BI-RADS: 1 Negative SARS-CoV-2 (COVID-19), RT-PCR/TMA 2021-03-01 15:38:51 Test Item Value Reference Range Interpretation Comme nts SARS-CoV-2 INTERPRETATION POSITIVE SEE NOTE A S ARS-CoV-2 RNA DETECTEDPositive (test code = 64872) results are indicative of the presence of ALL S-CoV-2 RNA;clinical co rrelation with patient history and other diagnosticinfor mation is necessary to de termine patient infection statu s.Positive results do not rule out bacterial infection or co -infectionwith other viruses. Positive and negative predic tive values oftesting are h ighly dependent on prevalence. SOURCE (test code = 65861) NASOPHARYNGEAL Note: Methodology is Cornel Oma Real-Time RT-PC R. The expected result or ref erence range is NEGATIVE (Not D etected). For more information reg arding COVID-19 testing to incl ude clinicalinforma tion, methodology detail, intende d use, FDA authorization a ndrecommended fact sheets for gi ents or healthcare providers, see [facility] Announcement: S ARS-CoV-2 (COVID-19) by Davi CANALES at URL below (note,fact shee ts are provided by method given in report:https:// www.[employer]/cl inicians/client -communications/ Alternatively, see downloadable PDF fact sheet at:https://www. [employer]/COVID- 19-RT-PCR UNLESS OTHERWISE INDICATED, ALL TESTING PERFORMED ATCLINICAL PATH [facility] [place] [address] LABORATORY DIRE CTOR: DELORES JIMENEZ M.D. CLIA NUMBER [id number] [place]. [id number] CT CERVICAL SPINE WO [id number] 23:28:36 No acute fracture of the cervical [...] reviewed this study and agree with the abovereport.[facility] 2 [id number] 22:48:15HISTORY: ?Chest pain. TECHNIQUE: PA and lateral views of the chest are obtained. FINDINGS: No acute pneumonia detected. No pneumothorax or pleural effusionor pulmonary congestion. Cardiomediastinal silhouette appears normal.Incidental note made of cholecystectomy clips in the upper abdomen,visualized in the lateral view. CONCLUSIONS: No signs of acute cardiopulmonary disease. [facility], Radiant Results Inft User - 02/25/2019 4:49 PM CSTHISTORY: Chest pain.TECHNIQUE: PA and lateral views of the chest are obtained.FINDINGS: No acute pneumonia detected. No pneumothorax or pleural effusionor pulmonary congestion. Cardiomediastinal silhouette appears normal.Incidental note made of cholecystectomy clips in the upper abdomen,visualized in the lateral view.CONCLUSIONS: No signs of acute cardiopulmonary disease.[facility]+ VW LEFT 2019-02-25 22:47:28HISTORY: Trauma. FINDINGS: 2 frontal views of left shoulder obtained with the arm ininternal and external rotation positions showed no acute fracture ordislocation. Mild glenohumeral joint degenerativearthritis and mild ACjoint degenerative arthrosis noted. No appreciable calcifications in therotatorcuff tendons or aggressive bone lesions seen. CONCLUSIONS: No acute fracture or dislocation in left shoulder. [facility] - 02/25/2019 4:48 PM CSTHISTORY: Trauma.FINDINGS: 2 frontal views of left shoulder obtained with the arm ininternal and external rotation positions showed no acute fracture ordislocation. Mild glenohumeral joint degenerative arthritis and mild ACjoint degenerative arthrosis noted. No appreciable calcifications in therotator cuff tendons or aggressive bone lesions seen.CONCLUSIONS: No acute fracture or dislocation in left shoulder.[facility]
[2021-07-07 23:04] LABS: Absolute Lymphocytes (CBC) 3.1 K/uL (0.7-4.9); Lymphocytes % 37.6 % (15.3-44.8); MPV 7.9 fL (7.6-11.3); RBC Red Blood Cell Count 4.16 M/uL (3.86-4.86)
[2021-07-07] MEDS ORDERED: TRAMADOL HCL 50 MG TAB ONE (23:06)
[2021-07-07 23:21] LABS: Potassium 3.5 mmol/L (3.5-5.1)
[2021-07-08] MEDS ORDERED: GABAPENTIN 300 MG CAP ONE (00:25)
--- NOTE | 2021-07-08 00:52 | EDPHYS ---
Physician Documentation [facility] Name: Jesenia Rodriguez Age: 55 yrs Sex: Female : 1965 Arrival Date: 07/07/2021 Time: 22:10 Bed 15 Private MD: ED Physician Malick Lei HPI: 07/07 22:33 This 55 yrs old Black Female presents to ER via Ambulatory with complaints of Headache, rn Neck Pain, >24Hrs Old, Blurred Vision. 22:33 The patient complains of pain to the top of head, left religious, left occipital area and rn left base of the skull. The patient describes the headache as aching. Onset: The symptoms/episode began/occurred 3 week(s) ago. Associated signs and symptoms: Pertinent positives: blurred vision, Pertinent negatives: altered mental status, fever, rash, vision loss, vomiting, weakness, vertigo. Severity of symptoms: At its worst the pain was moderate, in the emergency department the pain is unchanged. Headache History: The patient has had previous headaches and this one is different than previous episodes. The symptoms are alleviated by over the counter pain medication, the symptoms are aggravated by movement, noise, stress. The patient has experienced similar episodes in the past. The patient has not recently seen a physician. Pt reports headache and neck pain, present for 3 weeks, has hx of migraines but this feels different because of neck pain. Reports intermittent blurred vision, seems to coincide with pain, currently denies blurred vision. No fever. No trauma. 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 NO chest pain/sob. No focal neuro complaints. . 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 - Social history:: Smoking status: Patient denies any tobacco usage or history of. Patient/guardian denies using alcohol. - Family history:: not pertinent. - Hospitalizations: : No recent hospitalization is reported. ROS: 22:33 Constitutional: Negative for fever, chills, and weight loss, Eyes: Negative for injury, rn pain, redness, and discharge, Neck: + left neck pain Cardiovascular: Negative for chest pain, palpitations, and edema, Respiratory: Negative for shortness of breath, cough, wheezing, and pleuritic chest pain, Abdomen/GI: Negative for abdominal pain, nausea, vomiting, diarrhea, and constipation, Back: Negative for injury and pain, MS/Extremity: Negative for injury and deformity, Skin: Negative for injury, rash, and discoloration, Neuro: Negative for weakness, numbness, tingling, and seizure. Exam: 22:33 Constitutional: This is a well developed, well nourished patient who is awake, alert, rn and in no acute distress. Room lights off. Head/Face: Normocephalic, atraumatic. Eyes: Pupils equal round and reactive to light, extra-ocular motions intact. Periorbital areas with no swelling, redness, or edema. Neck: Trachea midline, no masses palpated, and no cervical lymphadenopathy. No Meningismus. Cardiovascular: Regular rate and rhythm. No pulse deficits. Respiratory: No increased work of breathing, no retractions or nasal flaring. Abdomen/GI: Soft, non-tender Skin: Warm, dry MS/ Extremity: Pulses equal, no cyanosis. Neuro: Awake and alert, GCS 15, oriented to person, place, time, and situation. Cranial nerves II-XII grossly intact. Motor strength 5/5 in all extremities. Sensory grossly intact. Cerebellar exam normal. Vital Signs: 22:20 BP 138 / 87; Pulse 78; Resp 18; Temp 98.6(O); Pulse Ox 99% on R/A; Weight 72.57 kg; ld1 Height 5 ft. 7 in. (170.18 cm); Pain 11/19; 07/08 00:04 BP 141 / 77; Pulse 76; Resp 17; Pulse Ox 99% on R/A; ll3 07/07 22:20 Body Mass Index 25.06 (72.57 kg, 170.18 cm) ld1 Herrin Coma Score: 00:49 Eye Response: spontaneous(4). Verbal Response: oriented(5). Motor Response: obeys rn commands(6). Total: 15. MDM: 07/07 22:11 Patient medically screened. rn 07/08 00:49 Differential diagnosis: hypertensive headache, intracerebral hemorrhage, migraine, rn subarachnoid bleed, tension headache, vasomotor headache. Data reviewed: vital signs, nurses notes, lab test result(s), radiologic studies, CT scan, and as a result, I will discharge patient. Counseling: I had a detailed discussion with the patient and/or guardian regarding: the historical points, exam findings, and any diagnostic results supporting the discharge/admit diagnosis, lab results, radiology results, the need for outpatient follow up, to return to the emergency department if symptoms worsen or persist or if there are any questions or concerns that arise at home. Response to treatment: the patient's symptoms have mildly improved after treatment, and as a result, I will discharge patient. Special discussion: I discussed with the patient/guardian in detail that at this point there is no indication for admission to the hospital. It is understood, however, that if the symptoms persist or worsen the patient needs to return immediately for re-evaluation. Based on the history and exam findings, there is no indication for further emergent testing or inpatient evaluation. I discussed with the patient/guardian the need to see the neurologist for further evaluation of the symptoms. ED course: No acute findings on ct head or angio head. Stable vitals. Normal neuro exam. 3 weeks long headache that responds to OTC meds. Hx of cervical neuropathy. Will dc home with refill of her gabapentin and tramadol. . 07/07 22:27 Order name: CBC with Diff; Complete Time: 23:26 rn 07/07 22:27 Order name: Basic Metabolic Panel; Complete Time: 23:26 rn 07/07 22:27 Order name: CT Head Brain wo Cont rn 07/07 22:27 Order name: Head Angio CT rn 07/07 22:27 Order name: Protime (+inr); Complete Time: 23:26 rn 07/07 22:27 Order name: Ptt, Activated; Complete Time: 23:26 rn 07/07 22:27 Order name: Neck Angio CT rn 07/07 22:27 Order name: IV Start; Complete Time: 22:40 rn Administered Medications: 07/07 23:17 Drug: traMADol 50 mg Route: PO; ll3 07/08 00:25 Follow up: Response: No adverse reaction; No change in condition ll3 00:25 Drug: Gabapentin 300 mg Route: PO; ll3 01:18 Follow up: Response: No adverse reaction; Marked relief of symptoms ll3 Disposition Summary: 07/08/21 00:51 Discharge Ordered Location: Home rn Problem: new rn Symptoms: have improved rn Condition: Stable rn Diagnosis - Headache rn Followup: rn - With: Private Physician - When: As needed - Reason: Recheck today's complaints, Re-evaluation by your physician Discharge Instructions: - Discharge Summary Sheet rn - General Headache Without Cause rn - Migraine Headache rn - Hypertension, Adult rn Forms: - Medication Reconciliation Form rn - Thank You Letter rn - Antibiotic perianesthesia rn - Prescription Opioid Use rn Prescriptions: - Neurontin 300 mg Oral Capsule - take 1 capsule by ORAL route At bedtime; 20 capsule; Refills: 0, Product rn Selection Permitted - Tramadol 50 mg Oral Tablet - take 1 tablet by ORAL route every 8 hours as needed; 12 tablet; Refills: 0, rn Product Selection Permitted Signatures: Dispatcher [employer] EDMalick Soler MD MD rn Dibbern, Lauren RN RN ld1 Laurence Richardson RN RN ll3 Corrections: (The following items were deleted from the chart) 07/07 23:52 22:33 Constitutional: This is a well developed, well nourished patient who is awake, rn alert, and in no acute distress. Room lights off. rn
--- NOTE | 2021-07-08 00:52 | ER ---
Nurse's Notes [facility] Name: Jesenia Rodriguez Age: 55 yrs Sex: Female : 1965 Arrival Date: 07/07/2021 Time: 22:10 Bed 15 Private MD: Diagnosis: Headache Presentation: 07/07 22:20 Chief complaint: Patient states: Headache on and off for the past three weeks. Pt c/o ld1 left eye blurred vision, left neck pain radiating up into base of head. Coronavirus screen: At this time, the client does not indicate any symptoms associated with coronavirus-19. Ebola Screen: No symptoms or risks identified at this time. Initial Sepsis Screen: Does the patient meet any 2 criteria? No. Patient's initial sepsis screen is negative. Does the patient have a suspected source of infection? No. Patient's initial sepsis screen is negative. Risk Assessment: Do you want to hurt yourself or someone else? Patient reports no desire to harm self or others. 22:20 Method Of Arrival: Ambulatory ld1 22:20 Acuity: BRIAN 3 ld1 07/08 01:22 Onset of symptoms is unknown. ll3 Triage Assessment: 07/07 22:21 Headache History: The patient has had previous headaches and this one is more severe ld1 than previous episodes. General: Appears in no apparent distress. uncomfortable, Behavior is cooperative, appropriate for age, anxious. Pain: Complains of pain in face and scalp Pain currently is 10 out of 10 on a pain scale. Quality of pain is described as throbbing, tingling Pain began 3 weeks ago. Neuro: Level of Consciousness is awake, alert, obeys commands, Oriented to person, place, time, situation. Cardiovascular: Capillary refill < 3 seconds Patient's skin is warm and dry. Respiratory: Airway is patent Respiratory effort is even, unlabored. 07/08 01:22 Pain: Also complains of no other associated symptoms. 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 - Social history:: Smoking status: Patient denies any tobacco usage or history of. Patient/guardian denies using alcohol. - Family history:: not pertinent. - Hospitalizations: : No recent hospitalization is reported. Screenin:00 Abuse screen: Denies threats or abuse. Nutritional screening: No deficits noted. ll3 Tuberculosis screening: No symptoms or risk factors identified. 07/08 01:21 Fall Risk No fall in past 12 months (0 pts). No secondary diagnosis (0 pts). IV access ll3 (20 points). Ambulatory Aid- None/Bed Rest/Nurse Assist (0 pts). Gait- Normal/Bed Rest/Wheelchair (0 pts) Mental Status- Oriented to own ability (0 pts). Total Aly Fall Scale indicates No Risk (0-24 pts). Assessment: 07/07 23:00 General: Appears uncomfortable, Behavior is calm, cooperative. Pain: Complains of pain ll3 in left base of the skull Pain currently is 10 out of 10 on a pain scale. Pain began 3 weeks ago Is episodic. Neuro: Level of Consciousness is awake, alert, obeys commands, Oriented to person, place, time, situation, Reports headache States "I was diagnosed with neuropathy in my shoulders and this pain feels the same". Respiratory: Respiratory effort is even, unlabored, Respiratory pattern is regular, symmetrical. Derm: Skin is pink, warm \\T\\ dry. Musculoskeletal: Circulation, motion, and sensation intact. 07/08 00:00 Reassessment: No changes from previously documented assessment. Patient and/or family ll3 updated on plan of care and expected duration. Pain level reassessed. Patient is alert, oriented x 3, equal unlabored respirations, skin warm/dry/pink. 01:00 Reassessment: Patient and/or family updated on plan of care and expected duration. Pain ll3 level reassessed. Patient is alert, oriented x 3, equal unlabored respirations, skin warm/dry/pink. States gabapentin helped, states pain is 5/10 Patient states feeling better. Patient states symptoms have improved. Vital Signs: 07/07 22:20 BP 138 / 87; Pulse 78; Resp 18; Temp 98.6(O); Pulse Ox 99% on R/A; Weight 72.57 kg; ld1 Height 5 ft. 7 in. (170.18 cm); Pain 10/10; 07/08 00:04 BP 141 / 77; Pulse 76; Resp 17; Pulse Ox 99% on R/A; ll3 07/07 22:20 Body Mass Index 25.06 (72.57 kg, 170.18 cm) ld1 [place] Coma Score: 00:49 Eye Response: spontaneous(4). Verbal Response: oriented(5). Motor Response: obeys rn commands(6). Total: 15. ED Course: 07/07 22:10 Patient arrived in ED. [id number] 22:11 Malick Lei MD is Attending Physician. rn 22:21 Triage completed. ld1 22:21 Arm band placed on left wrist. ld1 23:00 Patient has correct armband on for positive identification. Bed in low position. Call ll3 light in reach. Side rails up X 1. 23:00 Inserted saline lock: 20 gauge in right antecubital area, using aseptic technique. ll3 Blood collected. 23:59 CT Head Brain wo Cont In Process Unspecified. EDMS 23:[address] In Process Unspecified. EDMS 07/08 00:[address] In Process Unspecified. EDMS 00:24 Laurence Richardson, LUIGI is Primary Nurse. ll3 01:20 No provider procedures requiring assistance completed. IV discontinued, intact, ll3 bleeding controlled, No redness/swelling at site. Pressure dressing applied. Administered Medications: 07/07 23:17 Drug: traMADol 50 mg Route: PO; ll3 07/08 00:25 Follow up: Response: No adverse reaction; No change in condition ll3 00:25 Drug: Gabapentin 300 mg Route: PO; ll3 01:18 Follow up: Response: No adverse reaction; Marked relief of symptoms ll3 Medication: 07/07 23:00 VIS not applicable for this client. ll3 Outcome: 07/08 00:51 Discharge ordered by . rn 01:20 Discharged to home ambulatory. ll3 01:20 Condition: stable 01:20 Discharge instructions given to patient, Instructed on discharge instructions, follow up and referral plans. medication usage, Demonstrated understanding of instructions, follow-up care, medications, Prescriptions given X 2. 01:22 Patient left the ED. ll3 Signatures: Dispatcher [employer] EDMS Malick Lei MD MD rn Dibbern, Lauren, RN RN ld1 Adela Rivas Lynsea, RN RN ll3 Corrections: (The following items were deleted from the chart) :22 01:21 Inserted saline lock: 20 gauge in right antecubital area, using aseptic ll3 technique. Blood collected. ll3
[2021-07-08 02:24] VITALS: BP 138/87; TEMP 98.6; O2SAT 99
--- NOTE | 2021-07-09 17:18 | RAD REPORT ---
EXAM DESCRIPTION: Head angio (accession [id number]), Neck Angio (accession [id number]) CLINICAL HISTORY: 55 years Female Headache, sudden, severe TECHNIQUE: Following dynamic intravenous nonionic contrast infusion, multiple axial helical CT angio graphic images of the head and neck with multiplanar reformation, 3D and MIP reconstructions were per formed. All CT scans at this facility use dose modulation, iterative reconstruction, and/or weight based dosing when appropriate to reduce radiation dose to as low as reasonably achievable. Stenosis m easurements performed using NASCET criteria. COMPARISONS: 07/01/2020. FINDINGS: CTA HEAD: LEFT: Internal carotid artery: No stenosis or occlusion. Anterior cerebral arteries: No stenosis or occlusion. Middle cerebral arteries: No stenosis or occlusion. Posterior cerebral arteries: No stenosis or occlusion. RIGHT: Internal carotid artery: No stenosis or occlusion. Anterior cerebral arteries: No stenosis or occlusion. Middle cerebral arteries: No stenosis or occlusion. Posterior cerebral arteries: No stenosis or occlusion. Basilar artery: No stenosis or occlusion. Vertebral artery: No dissection, occlusion or significant stenosis. Other: No aneurysm or vascular malformation. Dural venous sinuses are patent. CTA NECK: Aortic arch: Demonstrates conventional branching. Normal caliber. Brachiocephalic artery: Normal caliber. No stenosis LEFT Subclavian artery: No stenosis or occlusion. Vertebral artery: No stenosis, dissection or occlusion. Common carotid artery: No stenosis, dissection or occlusion. Internal carotid: No stenosis, dissection or occlusion. External carotid: No stenosis or occlusion. RIGHT Subclavian artery: No stenosis or occlusion. Vertebral artery: No stenosis, dissection or occlusion. Common carotid artery: No stenosis, dissection or occlusion. Internal carotid: No stenosis, dissection or occlusion. External carotid: No stenosis or occlusion. IMPRESSION: CTA head: 1. No large vessel occlusion. CTA neck: 1. No acute cervical vascular pathology. 2. No hemodynamically significant carotid stenosis. Electronically signed by: Hebert Cox MD 07/08/2021 12:40 AM CDT Due to temporary technical issues with the PACS/Fluency reporting system, reports are being signed by the in house radiologists without review as a courtesy to insure prompt reporting. The interpreting radiologist is fully responsible for the content of the report.
--- NOTE | 2021-07-09 17:21 | RAD REPORT ---
EXAM DESCRIPTION: CT HEAD WITHOUT IV CONTRAST CLINICAL HISTORY: Headache, new or worsening COMPARISON: None. TECHNIQUE: CT HEAD WITHOUT IV CONTRAST on 07/07/2021 10:27 PM CDT This exam was performed according to our departmental dose-optimization program, which includes autom ated exposure control, adjustment of the mA and/or kV according to patient size and/or use of iterati ve reconstruction technique. FINDINGS: There is no acute hemorrhage, mass effect or midline shift. Varghese-white differentiation is preserved. There is no hydrocephalus. There is no significant volume loss for age. There is old appearing deformity of the medial right orbital wall. Orbits and globes are unremarkable . The paranasal sinuses are clear. Mastoid air cells are clear. IMPRESSION: No acute intracranial findings. Electronically signed by: Alfonso Colbert MD 07/08/2021 12:44 AM CDT Due to temporary technical issues with the PACS/Fluency reporting system, reports are being signed by the in house radiologists without review as a courtesy to insure prompt reporting. The interpreting radiologist is fully responsible for the content of the report.
--- NOTE | 2021-07-09 17:29 | RAD REPORT ---
EXAM DESCRIPTION: Head angio (accession [id number]), Neck Angio (accession [id number]) CLINICAL HISTORY: 55 years Female Headache, sudden, severe TECHNIQUE: Following dynamic intravenous nonionic contrast infusion, multiple axial helical CT angio graphic images of the head and neck with multiplanar reformation, 3D and MIP reconstructions were per formed. All CT scans at this facility use dose modulation, iterative reconstruction, and/or weight based dosing when appropriate to reduce radiation dose to as low as reasonably achievable. Stenosis m easurements performed using NASCET criteria. COMPARISON: 07/01/2020. FINDINGS: CTA HEAD: LEFT: Internal carotid artery: No stenosis or occlusion. Anterior cerebral arteries: No stenosis or occlusion. Middle cerebral arteries: No stenosis or occlusion. Posterior cerebral arteries: No stenosis or occlusion. RIGHT: Internal carotid artery: No stenosis or occlusion. Anterior cerebral arteries: No stenosis or occlusion. Middle cerebral arteries: No stenosis or occlusion. Posterior cerebral arteries: No stenosis or occlusion. Basilar artery: No stenosis or occlusion. Vertebral artery: No dissection, occlusion or significant stenosis. Other: No aneurysm or vascular malformation. Dural venous sinuses are patent. CTA NECK: Aortic arch: Demonstrates conventional branching. Normal caliber. Brachiocephalic artery: Normal caliber. No stenosis LEFT Subclavian artery: No stenosis or occlusion. Vertebral artery: No stenosis, dissection or occlusion. Common carotid artery: No stenosis, dissection or occlusion. Internal carotid: No stenosis, dissection or occlusion. External carotid: No stenosis or occlusion. RIGHT Subclavian artery: No stenosis or occlusion. Vertebral artery: No stenosis, dissection or occlusion. Common carotid artery: No stenosis, dissection or occlusion. Internal carotid: No stenosis, dissection or occlusion. External carotid: No stenosis or occlusion. IMPRESSION: CTA head: 1. No large vessel occlusion. CTA neck: 1. No acute cervical vascular pathology. 2. No hemodynamically significant carotid stenosis. Electronically signed by: Hebert Cox MD 07/08/2021 12:40 AM CDT Due to temporary technical issues with the PACS/Fluency reporting system, reports are being signed by the in house radiologists without review as a courtesy to insure prompt reporting. The interpreting radiologist is fully responsible for the content of the report.
== END 2021-07-08 01:22 | disposition home or self-care (01) ==
LOC: ER 22:07
DX: R51.9 Headache, unspecified (principal); I10 Essential (primary) hypertension; Z88.5 Allergy status to narcotic agent; Z88.6 Allergy status to analgesic agent; Z91.018 Allergy to other foods
CPT/HCPCS: 36415; 70450; 70496; 70498; 80048; 85025; 85610; 85730; 99284; Q9967

== ENCOUNTER 2022-01-01 20:48 | Emergency (ER) | payer SELFPAY ==
--- OUTSIDE RECORDS SUMMARY | 2022-01-01 20:53 | XMS REPORT | Continuity of Care Document ---
:1965 Author Organization [facility] t Address [address] [place] [address] Care Team Providers Name Role Phone Pcp, Patient Does Not Have A Primary Care Physician [phone] CARLI SANTIAGO Attending Clinician Unavailable Carli Santiago DO Attending Clinician Ray Sánchez Attending Clinician RAY ELIZABETH Attending Clinician Unavailable RAY ELIZABETH Admitting Clinician Unavailable Problems Condition Condition Condition Status Onset Resolution Last Treating Co mments Source Name Details Category Date Date Treatment Clinician Date Anemia Anemia Disease Active Overview: Univer s 08-12 Formattin ity of 00:00: g of this [place] 00 note Medical might be Branch different from the original. 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 Right Allergies, Adverse Reactions, Alerts Allergy Allergy Status [...] Medical s Branch Propoxyp Propensi Active Hives 2006-0 Univer s hene ty to 09-04 ity of N-Acetam adverse 00:00: [place] inophen reaction 00 Medical s Branch CODEINE DRUG Active Anaphylaxis 2006-0 Univ ers INGREDI 09-04 ity of 00:00: [place] 00 Medical Branch PROPOXYP DRUG Active Hives 2006-0 Univers HENE 09-04 ity of N-ACETAM 00:00: [place] INOPHEN 00 Medical Branch MEPERIDI DRUG Active Hives 2006-0 Univers NE HCL INGREDI 09-04 ity of 00:00: [place] 00 Medical Branch HYDROCOD DRUG Active Hives 2006-0 Univers ONE-ACET - ity of AMINOPHE 00:00: [place] N 00 [...] Date Quantity Comments Source Sex Assigned At [birth year] [facility] 00:00:00 00:00:00 Medical Branch Smoking Status Start Date Stop Date Source [facility] Medications Ordered Filled Start Stop Current Ordering Indication Dosage Frequency Signature Comments Components Source Medication Medication Date Date Medication? Clinician (SIG) Name Name diazePAM 2021- No 5mg 5 mg, Univers (VALIUM) 08-30 Oral, ity of tablet 5 mg 20:45: 20:48 [place] dose, On Medical [facility] Branch 08/30/21 at 1545, SUSAN methocarbam Yes [id number] 750mg Take 1 Univers oL 750 mg 08-30 tablet by ity o f tablet 00:00: mouth [place] 00 every 6 Medical (six) Branch hours. traMADol 2019- No 50mg 50 mg, Univer s (ULTRAM) 02-25 Oral, ity of tablet 50 23:15: 23:26 ONCE, 1 [place] mg [place] :00 dose, [facility] 02/25/19 at Branch 1715, Routine SUMAtriptan 2017-02 Yes 50mg Take 1 Univ ers (IMITREX) 0-03 tablet by ity o f 50 mg 00:00: mouth as [place] tablet 00 needed for Medical Migraine. Branch SUMAtriptan 2017-02 Yes 50mg Take 1 Univ ers (IMITREX) 0-03 tablet by ity o f 50 mg 00:00: mouth as [place] tablet 00 needed for Medical Migraine. Branch IBUPROFEN Yes None Univers 600 MG ORAL - Entered ity o f TAB 14:41: [address] IBUPROFEN Yes None Univers 600 MG ORAL 6- Entered ity o f TAB 09:41: [address] Branch ketorolac Yes 10mg Take 1 Univer s 10 mg 6-09 tablet by ity of tablet 00:00: mouth [place] 00 every 6 Medical (six) Branch hours as needed for Pain (scale 7-10). ketorolac Yes 10mg Take 1 Univer s 10 mg 6-09 tablet by ity of tablet 00:00: mouth [place] 00 every 6 Medical (six) Branch hours as needed for Pain (scale 7-10). ULTRAM ER Yes None Univers 200 MG ORAL 08-13 Entered ity o f TB24 14:35: [address] Branch FERROUS Yes 3 tabs Univers SULFATE 250 7-04 daily ity of MG ORAL 14:35: [facility] Branch ULTRAM ER Yes None Univers 200 MG ORAL 7-04 Entered ity o f TB24 09:35: [place] [address] Medical Branch FERROUS Yes 3 tabs Univers SULFATE 250 7-04 daily ity of MG ORAL 09:35: [facility] Branch DOCUSATE Yes 1 Cap Oral Uni vers CALCIUM 240 7-04 BID ity of MG ORAL CAP 00:00: [place] [address] Medical Branch TRAMADOL 50 Yes 1 Tab Oral Univers MG ORAL TAB 7-04 Q6HPRN ity of 00:00: [place] [address] Medical Branch CLIMARA Yes one patch Unive rs 0.06 MG/24 7-04 applied to ity of HR 00:00: clean skin [place] TRANSDERMAL 00 surface Medic al [facility] area Branch weekly CEPHALEXIN Yes one tab po U nivers 500 MG ORAL 7-04 bid ity of CAP 00:00: [address] Branch DOCUSATE Yes 1 Cap Oral Uni vers CALCIUM 240 7-04 BID ity of MG ORAL CAP 00:00: [place] [address] Medical Branch TRAMADOL 50 Yes 1 Tab Oral Univers MG ORAL TAB 7-04 Q6HPRN ity of 00:00: [place] [address] Medical Branch CLIMARA Yes one patch Unive rs 0.06 MG/24 7-04 applied to ity of HR 00:00: clean skin [place] TRANSDERMAL 00 surface Medic al PTWK area Branch weekly CEPHALEXIN Yes one tab po U nivers 500 MG ORAL 7-04 bid ity of CAP 00:00: [address] Vital Signs Vital Name Observation Time Observation Value Comments Source Systolic blood 2021-08-30 20:30:00 163 mm[Hg] Univer sity of pressure [facility] Diastolic blood 2021-08-30 20:30:00 95 mm[Hg] Unive rsity of pressure [facility] Heart rate 2021-08-30 20:30:00 86 /min [facility] Body temperature 2021-08-30 20:30:00 36.89 Jerliyn [facility] Respiratory rate 2021-08-30 20:30:00 18 /min [facility] Body height 2021-08-30 20:30:00 170.2 cm [facility] [place] [facility] Body weight 2021-08-30 20:30:00 72.576 kg [facility] [place] [facility] BMI 2021-08-30 20:30:00 25.06 kg/m2 [facility] [place] [facility] Oxygen saturation in 2021-08-30 20:30:00 98 /min University of Arterial blood by [place] Pulse oximetry Branch Systolic blood 2019-02-25 23:00:00 154 mm[Hg] Univer sity of pressure [place] [facility] Diastolic blood 2019-02-25 23:00:00 95 mm[Hg] Unive rsity of pressure [place] [facility] Heart rate 2019-02-25 23:00:00 61 /min [facility] [place] [facility] Respiratory rate 2019-02-25 23:00:00 18 /min Univ ers[facility] [place] [facility] Oxygen saturation in 2019-02-25 23:00:00 100 /min University of Arterial blood by [place] Pulse oximetry Branch Body temperature 2019-02-25 21:31:00 36.78 Jerilyn [facility] [place] [facility] Body weight 2019-02-25 21:31:00 65.772 kg [facility] [place] [facility] BMI 2019-02-25 21:31:00 22.71 kg/m2 [facility] [place] [facility] Systolic blood 2019-02-25 23:00:00 154 mm[Hg] Univer sity of pressure [place] [facility] Diastolic blood 2019-02-25 23:00:00 95 mm[Hg] Unive rsity of pressure [place] [facility] Heart rate 2019-02-25 23:00:00 61 /min [facility] [place] [facility] Respiratory rate 2019-02-25 23:00:00 18 /min Univ ers[facility] [place] [facility] Oxygen saturation in 2019-02-25 23:00:00 100 /min University of Arterial blood by [place] Pulse oximetry Branch Body temperature 2019-02-25 21:31:00 36.78 Jerilyn [facility] [place] [facility] Body weight 2019-02-25 21:31:00 65.772 kg [facility] [place] [facility] BMI 2019-02-25 21:31:00 22.71 kg/m2 [facility] [place] [facility] Procedures Procedure Date / Time Performed Performing Clinician Sourc e CONSENT/REFUSAL FOR 2021-08-30 20:11:05 Doctor Unassigned, No Un [facility] DIAGNOSIS AND Name Medical Branch TREATMENT CT CERVICAL SPINE WO 2019-02-25 22:58:44 Ray Elizabeth [facility] CONTRAST [facility] Branch XR CHEST 2 VW 2019-02-25 22:41:55 Ray Elizabeth Benedict o f [facility] XR SHOULDER 2+ VW 2019-02-25 22:41:55 Ray Elizabeth [facility] LEFT [facility] Branch Encounters Start End Encounter Admission Attending Care Care Encounter Source Date/Time Date/Time Type Type Clinicians Facility Department ID 2021-08-30 2021-08-30 Emergency X PAMELA [facility] ERT [id number] Univers 15:31:00 16:03:00 CARLI johnson [facility] 2021-08-30 2021-08-30 Emergency Pamela [facility] [id number] Univers 15:31:00 16:03:00 Carli ROSE [id number] ity of [place] [id number] [facility] [id number] [address] 2019-02-25 2019-02-25 [facility] [id number] Univers 15:32:56 17:51:00 Ray Rose [id number] i ty of [place] [id number] [facility] [id number] [address] 2019-02-25 2019-02-25 Emergency X CLARA [facility] ERT [id number] Univers 15:32:56 17:51:00 RAY johnson [facility] 2019-02-25 2019-02-25 [facility] [id number] 15:32:56 17:51:00 Ray Rose [id number] [place] [id number] [place] [address] [id number] Results Test Description Test Time Test Comments Results Result [facility] e Comments SCR MAMM 2021-04-06 BILATERAL AUGUSTINA 12:54:52 CAD DIGITAL Name: Jesenia : 1965 Sex: F - SCR MAMM BILATERAL AUGUSTINA CAD DIGITALBILATERAL DIGITAL SCREENING MAMMOGRAM 3D/2D WITH CAD: 03/22/2021LINICAL: Asymptomatic. Digital breast tomosynthesis was performed in addition to routine CC and MLO views. Current mammographic images were evaluated by [employer] CAD (computer-aided detection) software. No prior exams were available for comparison. There are scattered fibroglandular tissues in both breasts. No suspicious mass, architectural distortion, malignant type calcification, or lymph node abnormality detected. IMPRESSION: NEGATIVEThere is no mammographic evidence of malignancy. Resume annual screening mammography in one year. Bethel Wheeler M.D. et/penrad:04/06/2021 12:54:52 Pulp Mill Supervisor: Wendi Leija MM, [facility] Mammographyletter sent: BIRADS 1-2 Normal Mammogram BI-RADS: 1 Negative SARS-CoV-2 (COVID-19), RT-PCR/TMA 2021-03-01 15:38:51 Test Item Value Reference Range Interpretation Comme nts SARS-CoV-2 INTERPRETATION POSITIVE SEE NOTE A S ARS-CoV-2 RNA DETECTEDPositive (test code = 59880) results are indicative of the presence of ALL S-CoV-2 RNA;clinical co rrelation with patient history and other diagnosticinfor mation is necessary to de termine patient infection statu s.Positive results do not rule out bacterial infection or co -infectionwith other viruses. Positive and negative predic tive values oftesting are h ighly dependent on prevalence. SOURCE (test code = 87504) NASOPHARYNGEAL Note: Methodology is Cornel Oma Real-Time RT-PC R. The expected result or refer ence range is NEGATIVE (Not D etected). For more information reg arding COVID-19 testing to incl ude clinicalinforma tion, methodology detail, intende d use, FDA authorization a ndrecommended fact sheets for gi ents or healthcare providers, see [facility] Announcement: S ARS-CoV-2 (COVID-19) by Davi CANALES at URL below (note,fact shee ts are provided by method given in report:https:// www.[employer]/cl inicians/client -communications/ Alternatively, see downloadable PDF fact sheet at:https://www. [employer]/COVID- 19-RT-PCR UNLES S OTHERWISE INDICATED, ALL TESTING PERFORMED [facility] O[facility] [employer], [facility]. [address] [place] [address] 4 RESERVOIR CARETAKER: DELORES JIMENEZ M.D. CLIA NUMBER [id number] CAP ACCREDITATION N O. [id number] CT CERVICAL SPINE WO [id number] 23:28:36 No acute fracture of the cervical spine. Preliminary Report Dictated by Resident: Sudeep Hays I, Mi Badillo MD., have reviewed this study and agree with the abovereport.CT CERVICAL SPINE WO CONTRAST HISTORY: ?C-spine trauma, high clinical risk (NEXUS/CCR) COMPARISON: None. TECHNIQUE: Noncontrasted CT of the cervical spine was obtained with coronaland sagittal reformats. Mild reversalof the normal cervical lordosis. The vertebral bodies arenormal in height and in normal alignment. No acute facet fracture orsubluxation is present. The craniocervical junction is intact. Mild spondylotic changes at C4-C6 manifested by disc space narrowing,endplate sclerosis and posterior osteophytes.Left C5-C6 uncovertebralarthrosis results in mild to moderate left neural foraminal narrowing.Moderate left C2-C3 facet arthrosis. The prevertebral soft tissues are unremarkable The visualized cervicalsoft tissues and visualized lung apices areunremarkable. [facility], Radiant Results Inft User - 02/25/2019 5:29 PM CSTCT CERVICAL SPINE WO CONTRASTHISTORY: C-spine trauma, high clinical risk (NEXUS/CCR) COMPARISON: None.TECHNIQUE: Noncontrasted CT of the cervical spine was obtained with coronaland sagittalreformats.Mild reversal of the normal cervical lordosis. The [...] soft tissues and visualized lung apices areunremarkable.IMPRESSIONNo acute fracture of the cervical spine.Preliminary Report Dictated by Resident: Sudeep Vance, iM Badillo MD., have reviewed this study and agree with the abovereport.[facility] 2 [id number] 22:48:15HISTORY: ?Chest pain. TECHNIQUE: PA and lateral views of the chest are obtained. FINDINGS: No acute pneumonia detected. No pneumothorax or pleural effusionor pulmonary congestion. Cardiomediastinal silhouette appears normal.Incidental note made of cholecystectomy clips in the upper abdomen,visualized in the lateral view. CONCLUSIONS: No signs of acute cardiopulmonary disease. [facility], Radiant Results Inft User - 02/25/2019 4:49 PM CSTHISTORY: Chest pain.TECHNIQUE: PA and lateral views of the chest are o btained.FINDINGS: No acute pneumonia detected. No pneumothorax or pleural effusionor pulmonary congestion. Cardiomediastinal silhouette appears normal.Incidental note made of cholecystectomy clips in the upper abdomen,visualized in the lateral view.CONCLUSIONS: No signs of acute cardiopulmonary disease.[facility] SHOULDER 2+ VW LEFT 2019-02-25 22:47:28HISTORY: Trauma. FINDINGS: 2 frontal views of left shoulder obtained with the arm ininternal and external rotation positions showed no acute fracture ordislocation. Mild glenohumeral joint degenerativearthritis and mild ACjoint degenerative arthrosis noted. No appreciable calcifications in therotatorcuff tendons or aggressive bone lesions seen. CONCLUSIONS: No acute fracture or dislocation in left shoulder. [facility], Radiant Results Inft User - 02/25/2019 4:48 PM CSTHISTORY: Trauma.FINDINGS: 2 frontalviews of left shoulder obtained with the arm ininternal and external rotation positions showed no acute fracture ordislocation. Mild glenohumeral joint degenerative arthritis and mild ACjoint degenerative arthrosis noted. No appreciable calcifications in therotator cuff tendons or aggressive bone lesions seen.CONCLUSIONS: No acute fracture or dislocation in left shoulder.[facility]
[2022-01-01] MEDS ORDERED: METOCLOPRAMIDE 10 MG/2mL INJ ONE (21:36)
[2022-01-01] MEDS ORDERED: NA CHLORIDE 0.9% 500 ML ONE (21:36)
[2022-01-01] MEDS ORDERED: DIPHENHYDRAMINE 50 MG/ML VIAL ONE (21:36)
[2022-01-01] MEDS ORDERED: KETOROLAC 30 MG/ML INJ ONE (21:36)
[2022-01-01 21:55] LABS: Urine Blood Negative (Negative); Urine Glucose Negative (Negative); Urine Protein Negative (Negative); Urine Specific Gravity 1.025 (1.005-1.030)
[2022-01-01 21:58] LABS: Absolute Lymphocytes (CBC) 2.9 K/uL (0.7-4.9); Hematocrit 39.7 % (36.0-45.0); Lymphocytes % 37.3 % (15.3-44.8); MCV 88.2 fL (80-100); MPV 8.2 fL (7.6-11.3)
--- NOTE | 2022-01-01 22:13 | RAD REPORT ---
EXAM DESCRIPTION: CT - Head Brain Wo Cont - 01/01/2022 9:56 pm CLINICAL HISTORY: Headache, classic migraine COMPARISON: <Comparisons> TECHNIQUE: All CT scans are performed using dose optimization technique as appropriate and may inclu de automated exposure control or mA/KV adjustment according to patient size. FINDINGS: No intracranial hemorrhage, hydrocephalus or extra-axial fluid collection.No areas of brai n edema or evidence of midline shift. The paranasal sinuses and mastoids are clear. The calvarium is intact. IMPRESSION: No acute intracranial abnormality.
[2022-01-01 22:16] LABS: Albumin 3.5 g/dL (3.4-5.0); Bilirubin Total 0.2 mg/dL (0.2-1.0); Potassium 3.7 mmol/L (3.5-5.1); Protein, Total 7.5 g/dL (6.4-8.2); Troponin High Sensitivity 7.3 pg/mL (<58.9)
--- NOTE | 2022-01-01 22:54 | ER ---
Nurse's Notes [facility] Name: Jesenia Rodriguez Age: 56 yrs Sex: Female : 1965 Arrival Date: 01/01/2022 Time: 20:54 Bed 15 Private MD: Diagnosis: Headache;Migraine without aura, not intractable Presentation: 01/01 20:54 Chief complaint: EMS states: called out for a 56 F with a migraine that started after aa9 dinner time, she says its the same pain as previous migraines, she took her medications and they didn't help at all, she c/o of L eye pain. Coronavirus screen: Vaccine status: Patient reports receiving the 2nd dose of the covid vaccine. moderna. Ebola Screen: No symptoms or risks identified at this time. Initial Sepsis Screen: Does the patient meet any 2 criteria? No. Patient's initial sepsis screen is negative. Does the patient have a suspected source of infection? No. Patient's initial sepsis screen is negative. Risk Assessment: Do you want to hurt yourself or someone else? Patient reports no desire to harm self or others. Onset of symptoms was January 01, 2022. 20:54 Method Of Arrival: EMS: [facility] aa9 20:54 Acuity: BRIAN 3 aa9 Triage Assessment: 20:58 General: Appears uncomfortable, Behavior is crying. Pain: Complains of pain in face and aa9 left eye Pain currently is 10 out of 10 on a pain scale. Noted to be crying, moaning. Neuro: Level of Consciousness is awake, alert, obeys commands, Oriented to person, place, time, situation, Reports photophobia. Cardiovascular: Patient's skin is warm and dry. Respiratory: Airway is patent Respiratory effort is even, unlabored. GI: Patient currently denies nausea, vomiting. : No signs and/or symptoms were reported regarding the genitourinary system. Derm: No signs and/or symptoms reported regarding the dermatologic system. Musculoskeletal: No signs and/or symptoms reported regarding the musculoskeletal system. ALTERATIONS SEWER: 23:01 LMP N/A - Hysterectomy aa9 Historical: - Allergies: 20:56 Cinnamon; aa9 20:56 Claritin; aa9 20:56 Codeine; aa9 20:56 Darvocet-N 100; aa9 20:56 Demerol; aa9 20:56 Tylenol; aa9 20:56 Vicodin; aa9 - Home Meds: 20:56 Propranolol Oral for migraine prevention [Active]; Carbamazepine Oral [Active]; aa9 sumatriptan [Active]; - PMHx: 20:56 Hypertension; Migraines; Syncopal Episodes; TIA; aa9 - PSHx: 20:56 Total abdominal hysterectomy; aa9 - Immunization history:: Client reports receiving the 2nd dose of the Covid vaccine. - Social history:: Smoking status: Patient denies any tobacco usage or history of. - Family history:: not pertinent. Screenin:59 Abuse screen: Denies threats or abuse. Denies injuries from another. Nutritional aa9 screening: No deficits noted. Tuberculosis screening: No symptoms or risk factors identified. Fall Risk None identified. Assessment: 22:02 General: Appears uncomfortable, Behavior is cooperative, anxious, crying. Neuro: Level aa9 of Consciousness is awake, alert, obeys commands, Oriented to person, place, time, situation. Cardiovascular: Patient's skin is warm and dry. Respiratory: Airway is patent Respiratory effort is even, unlabored. 23:01 Reassessment: Patient appears in no apparent distress at this time. Patient is alert, aa9 oriented x 3, equal unlabored respirations, skin warm/dry/pink. 23:14 Reassessment: Patient appears in no apparent distress at this time. pt able to ambulate aa9 independently, denies concerns, understands discharge instructions. Vital Signs: 20:54 BP 207 / 107; Pulse 83; Resp 19 S; Temp 98.3(O); Pulse Ox 100% on R/A; Weight 63.5 kg aa9 (R); Height 5 ft. 7 in. (170.18 cm) (R); Pain 10/10; 21:30 BP 132 / 94; Pulse 79; Resp 17 S; Pulse Ox 95% on R/A; aa9 22:14 BP 149 / 87; Pulse 73; Resp 18 S; Pulse Ox 99% on R/A; aa9 22:45 BP 152 / 88; Pulse 71; Resp 16 S; Pulse Ox 100% on R/A; aa9 20:54 Body Mass Index 21.93 (63.50 kg, 170.18 cm) aa9 [place] Coma Score: 22:59 Eye Response: spontaneous(4). Verbal Response: oriented(5). Motor Response: obeys bill commands(6). Total: 15. ED Course: 20:54 Patient arrived in ED. aa9 20:55 Sulma Michelle, RN is Primary Nurse. kd3 20:55 Inserted saline lock: 20 gauge in right antecubital area, using aseptic technique. kd3 Blood collected. 20:56 Triage completed. aa9 20:59 Arm band placed on left wrist. aa9 21:00 Patient has correct armband on for positive identification. Bed in low position. Call aa9 light in reach. Side rails up X2. threat monitoring analyst on. Pulse ox on. 21:00 Door closed. Lights dimmed. Warm blanket given. aa9 21:26 Freddy Owusu MD is Attending Physician. bill 21:49 Comprehensive Metabolic Panel Sent. aa9 21:49 CBC with Diff Sent. aa9 21:49 Troponin High Sensitivity Sent. aa9 21:55 Troponin High Sensitivity Sent. aa9 21:57 CT Head Brain wo Cont In Process Unspecified. EDMS 22:03 Comprehensive Metabolic Panel Sent. aa9 22:15 No provider procedures requiring assistance completed. aa9 22:53 Pako Del Rio MD is Referral Physician. bill 23:13 IV discontinued, intact, bleeding controlled, No redness/swelling at site. Pressure aa9 dressing applied. Administered Medications: 21:48 Drug: NS 0.9% 500 ml Route: IV; Rate: bolus; Site: right antecubital; aa9 23:15 Follow up: Response: No adverse reaction; IV Status: Completed infusion; IV Intake: aa9 500ml 21:48 Drug: Benadryl (diphenhydrAMINE) 50 mg Route: IVP; Site: right antecubital; aa9 21:56 Follow up: Response: No adverse reaction aa9 21:48 Drug: Reglan (metoCLOPramide) 10 mg Route: IVP; Site: right antecubital; aa9 21:55 Follow up: Response: No adverse reaction aa9 21:56 Follow up: Response: No adverse reaction aa9 21:48 Drug: Ketorolac 30 mg Route: IVP; Site: right antecubital; aa9 21:55 Follow up: Response: No adverse reaction aa9 Medication: 20:59 VIS not applicable for this client. aa9 Intake: 23:15 IV: 500ml; Total: 500ml. aa9 Outcome: 22:53 Discharge ordered by . bill 23:13 Discharged to home ambulatory. aa9 23:13 Condition: stable 23:13 Discharge instructions given to patient, Instructed on discharge instructions, follow up and referral plans. medication usage, Demonstrated understanding of instructions, follow-up care, medications, Prescriptions given X 2. 23:19 Patient left the ED. aa9 Signatures: Dispatcher [employer] EDMS Freddy Owusu MD MD cha Doucette, Kyli, RN RN kd3 Emily Barrera, RN RN aa9 Corrections: (The following items were deleted from the chart) 23:07 23:00 CARBAMAZEPINE (TEGRETOL)+C.LAB.BRZ drawn and sent. aa9 EDAK
--- NOTE | 2022-01-01 22:54 | EDPHYS ---
Physician Documentation [facility] Name: Jesenia Rodriguez Age: 56 yrs Sex: Female : 1965 Arrival Date: 01/01/2022 Time: 20:54 Bed 15 Private MD: ED Physician Freddy Owusu HPI: 01/01 22:48 This 56 yrs old Black Female presents to ER via EMS with complaints of headache , usual.bill 22:48 The patient complains of pain to the top of head, forehead, left frontal area, left bill side of the back of head, left occipital area, left base of the skull, right frontal area, right side of the back of head, right occipital area and right base of the skull. The patient describes the headache as constant. Onset: The symptoms/episode began/occurred just prior to arrival. Associated signs and symptoms: Pertinent positives: Photophobia. Severity of symptoms: At its worst the pain was moderate, in the emergency department the pain is unchanged, despite home interventions. Headache History: The patient has had previous headaches and this one is similar to previous episodes. The symptoms are alleviated by nothing. over the counter pain medication, quiet, remaining still, the symptoms are aggravated by lights, movement, noise. The patient has experienced similar episodes in the past, multiple times. [employer] BLASTING: 23:01 LMP N/A - Hysterectomy aa9 Historical: - Allergies: 20:56 Cinnamon; aa9 20:56 Claritin; aa9 20:56 Codeine; aa9 20:56 Darvocet-N 100; aa9 20:56 Demerol; aa9 20:56 Tylenol; aa9 20:56 Vicodin; aa9 - Home Meds: 20:56 Propranolol Oral for migraine prevention [Active]; Carbamazepine Oral [Active]; aa9 sumatriptan [Active]; - PMHx: 20:56 Hypertension; Migraines; Syncopal Episodes; TIA; aa9 - PSHx: 20:56 Total abdominal hysterectomy; aa9 - Immunization history:: Client reports receiving the 2nd dose of the Covid vaccine. - Social history:: Smoking status: Patient denies any tobacco usage or history of. - Family history:: not pertinent. ROS: 22:48 Constitutional: Negative for fever, chills, and weight loss, Eyes: Negative for injury, bill pain, redness, and discharge, ENT: Negative for injury, pain, and discharge, Neck: Negative for injury, pain, and swelling, Cardiovascular: Negative for chest pain, palpitations, and edema, Respiratory: Negative for shortness of breath, cough, wheezing, and pleuritic chest pain, Abdomen/GI: Negative for abdominal pain, nausea, vomiting, diarrhea, and constipation, Back: Negative for injury and pain, : Negative for injury, bleeding, discharge, and swelling, MS/Extremity: Negative for injury and deformity, Skin: Negative for injury, rash, and discoloration, Psych: Negative for depression, anxiety, suicide ideation, homicidal ideation, and hallucinations, Allergy/Immunology: Negative for hives, rash, and allergies, Endocrine: Negative for neck swelling, polydipsia, polyuria, polyphagia, and marked weight changes, Hematologic/Lymphatic: Negative for swollen nodes, abnormal bleeding, and unusual bruising. 22:48 Neuro: Positive for headache. Exam: 22:48 Constitutional: This is a well developed, well nourished patient who is awake, alert, bill and in no acute distress. Head/Face: Normocephalic, atraumatic. Eyes: Pupils equal round and reactive to light, extra-ocular motions intact. Lids and lashes normal. Conjunctiva and sclera are non-icteric and not injected. Cornea within normal limits. Periorbital areas with no swelling, redness, or edema. ENT: Nares patent. No nasal discharge, no septal abnormalities noted. Tympanic membranes are normal and external auditory canals are clear. Oropharynx with no redness, swelling, or masses, exudates, or evidence of obstruction, uvula midline. Mucous membranes moist. Neck: Trachea midline, no thyromegaly or masses palpated, and no cervical lymphadenopathy. Supple, full range of motion without nuchal rigidity, or vertebral point tenderness. No Meningismus. Chest/axilla: Normal chest wall appearance and motion. Nontender with no deformity. No lesions are appreciated. Cardiovascular: Regular rate and rhythm with a normal S1 and S2. No gallops, murmurs, or rubs. Normal PMI, no JVD. No pulse deficits. Respiratory: Lungs have equal breath sounds bilaterally, clear to auscultation and percussion. No rales, rhonchi or wheezes noted. No increased work of breathing, no retractions or nasal flaring. Abdomen/GI: Soft, non-tender, with normal bowel sounds. No distension or tympany. No guarding or rebound. No evidence of tenderness throughout. Back: No spinal tenderness. No costovertebral tenderness. Full range of motion. Skin: Warm, dry with normal turgor. Normal color with no rashes, no lesions, and no evidence of cellulitis. MS/ Extremity: Pulses equal, no cyanosis. Neurovascular intact. Full, normal range of motion. Psych: Awake, alert, with orientation to person, place and time. Behavior, mood, and affect are within normal limits. 22:48 Neck: C-spine: appears grossly normal, no acute changes, Thyroid: appears normal, Trachea: is midline with no obvious abnormalities, ROM/movement: is normal, no acute changes, limited range of motion, is not appreciated, Meningeal signs: are not present, Kernig's sign is negative, Brudzinski's sign is negative, nuchal rigidity, is not appreciated. 22:48 Neuro: Orientation: is normal, appropriate for stated age, no acute changes, Mentation: is normal, appropriate for stated age, no acute changes, Memory: is normal, appropriate for stated age, no acute changes, Cranial nerves: grossly normal, is grossly normal based on the patient's age, no acute changes, Cerebellar function: is grossly normal, is grossly normal based on the patient's age, no acute changes, Motor: is normal, is grossly normal based on the patient's age, no acute changes, moves all fours, strength is normal, Sensation: no obvious gross deficits, appropriate no acute changes, Gait: not tested. seizure activity, is not displayed by the patient. Vital Signs: 20:54 BP 207 / 107; Pulse 83; Resp 19 S; Temp 98.3(O); Pulse Ox 100% on R/A; Weight 63.5 kg aa9 (R); Height 5 ft. 7 in. (170.18 cm) (R); Pain 10/10; 21:30 BP 132 / 94; Pulse 79; Resp 17 S; Pulse Ox 95% on R/A; aa9 22:14 BP 149 / 87; Pulse 73; Resp 18 S; Pulse Ox 99% on R/A; aa9 22:45 BP 152 / 88; Pulse 71; Resp 16 S; Pulse Ox 100% on R/A; aa9 20:54 Body Mass Index 21.93 (63.50 kg, 170.18 cm) aa9 Gm Coma Score: 22:59 Eye Response: spontaneous(4). Verbal Response: oriented(5). Motor Response: obeys [facility] commands(6). Total: 15. MDM: 21:26 Patient medically screened. [facility] 22:59 Differential diagnosis: cluster headache, epidural hematoma, glaucoma, hyponatremia, bill intracerebral hemorrhage, migraine, neoplasm, subarachnoid bleed, subdural hematoma, temporal arteritis, tension headache, trigeminal neuralgia, vasomotor headache. Data reviewed: vital signs, nurses notes, EKG, radiologic studies, CT scan. Data interpreted: classroom monitor: rate is 73 beats/min, rhythm is regular, Pulse oximetry: on room air is 99 %. Test interpretation: by ED physician or midlevel provider: ECG. Counseling: I had a detailed discussion with the patient and/or guardian regarding: the historical points, exam findings, and any diagnostic results supporting the discharge/admit diagnosis, the presence of at least one elevated blood pressure reading (>120/80) during this emergency department visit, lab results, radiology results, the need for outpatient follow up, for definitive care, a family practitioner, a neurologist. 01/01 21:30 Order name: CBC with Diff; Complete Time: 22:24 [facility] 01/01 21:30 Order name: Comprehensive Metabolic Panel; Complete Time: 22:24 [facility] 01/01 21:30 Order name: Troponin High Sensitivity; Complete Time: 22:24 [facility] 01/01 21:55 Order name: Urine Dipstick-Ancillary; Complete Time: 22:24 [facility] 01/01 23:07 Order name: Miscellaneous Test Lab [facility] 01/01 21:30 Order name: Urine Dipstick-Ancillary (obtain specimen); Complete Time: 21:55 [facility] 01/01 21:30 Order name: CT Head Brain wo Cont; Complete Time: 22:24 [facility] 01/01 21:30 Order name: EKG - Nurse/Tech; Complete Time: 22:12 [facility] 01/01 21:30 Order name: Oxygen; Complete Time: 22:03 [facility] Administered Medications: 21:48 Drug: NS 0.9% 500 ml Route: IV; Rate: bolus; Site: right antecubital; aa9 23:15 Follow up: Response: No adverse reaction; IV Status: Completed infusion; IV Intake: aa9 500ml 21:48 Drug: Benadryl (diphenhydrAMINE) 50 mg Route: IVP; Site: right antecubital; aa9 21:56 Follow up: Response: No adverse reaction aa9 21:48 Drug: Reglan (metoCLOPramide) 10 mg Route: IVP; Site: right antecubital; aa9 21:55 Follow up: Response: No adverse reaction aa9 21:56 Follow up: Response: No adverse reaction aa9 21:48 Drug: Ketorolac 30 mg Route: IVP; Site: right antecubital; aa9 21:55 Follow up: Response: No adverse reaction aa9 Disposition Summary: 01/01/22 22:53 Discharge Ordered Location: Home bill Problem: new bill Symptoms: have improved bill Condition: Stable bill Diagnosis - Headache bill - Migraine without aura, not intractable bill Followup: bill - With: Private Physician - When: 2 - 3 days - Reason: Recheck today's complaints, Continuance of care, Re-evaluation by your physician Followup: bill - With: Pako Del Rio MD - When: 5 - 6 days - Reason: Recheck today's complaints, Re-evaluation by your physician Discharge Instructions: - Discharge Summary Sheet bill - Migraine Headache bill - Migraine Headache, [id number] bill Forms: - Work release form bill - Medication Reconciliation Form bill - Thank You Letter bill - Antibiotic Education bill - Prescription Opioid Use [facility] Prescriptions: - Zofran 4 mg Oral Tablet - take 1 tablet by ORAL route every 12 hours As needed; 20 tablet; Refills: 0, [facility] Product Selection Permitted - Ibuprofen 600 mg Oral Tablet - take 1 tablet by ORAL route every 8 hours As needed take with food; 15 tablet; [facility] Refills: 0, Product Selection Permitted Signatures: Dispatcher [employer] Freddy Chacko MD MD cha Avalos, Aylin, RN RN aa9 Corrections: (The following items were deleted from the chart) 23:07 22:48 CARBAMAZEPINE (TEGRETOL)+[id number].BRZ ordered. EDMS EDMS
[2022-01-01 23:23] VITALS: TEMP 98.3
[2022-01-01 23:26] VITALS: BP 152/88; O2SAT 100
--- NOTE | 2022-01-07 13:01 | EKG ---
Test Date: 2022-01-01 Test Time: 22:09:17 Correctional Therapy Director: LYNNE MEASUREMENT RESULTS: Intervals: Rate: 65 AR: 196 QRSD: 88 QT: 418 QTc: 434 [place]: P: 82 AR: 196 QRS: 60 T: 61 INTERPRETIVE STATEMENTS: Normal sinus rhythm Septal infarct, age undetermined Abnormal ECG Compared to ECG 04/26/2021 10:25:48 Myocardial infarct finding now present Sinus bradycardia no longer present Electronically Signed On 01-07-22 12:54:31 [employer]ERGY CONSERVATION ENGINEER by Marcio Barbosa
== END 2022-01-01 23:19 | disposition home or self-care (01) ==
LOC: ER 20:48
DX: G43.009 Migraine without aura, not intractable, without status migrainosus (principal); I10 Essential (primary) hypertension; Z88.5 Allergy status to narcotic agent; Z88.6 Allergy status to analgesic agent; Z91.02 Food additives allergy status
CPT/HCPCS: 36415; 70450; 80053; 80156; 81003; 84484; 85025; 93005; 96361; 96374; 96375; 99285; J1200; J2765; J7040